=== PATIENT | female | born 1965 | race Two or more races ===

== ENCOUNTER 2020-05-15 08:42 | Outpatient (REF) | payer OTHER, SELFPAY | END 2020-05-15 08:43 | disposition home or self-care (01) | LOC: HO.LAB 08:42 | PROVIDERS: Visit Provider Internal Medicine | DX: Z20.828 Contact with and (suspected) exposure to other viral communicable diseases (principal) | CPT/HCPCS: C9803; U0003 ==

== ENCOUNTER 2020-08-11 11:56 | Outpatient (REF) | payer OTHER, SELFPAY ==
--- NOTE | ~2020-08-11 | MM_ITS ---
EXAMINATION: MM SCREENING DIGITAL BREAST TOMOSYNTHESIS, BILATERAL CLINICAL INFORMATION: Screening. Asymptomatic. The lifetime risk of breast cancer based on the Tyrer-Cuzick Model is 6%. COMPARISON: Mammography: 05/28/2019, 05/18/2018 TECHNIQUE: Digital breast tomosynthesis is performed in both the craniocaudal and mediolateral oblique views along with computer-aided detection (CAD). Synthesized 2D images are generated from the tomosynthesis. FINDINGS: There are scattered areas of fibroglandular density (ACR BI-RADS breast composition Category b). There are no significant masses, abnormal calcifications, or other abnormalities. The axilla and skin contours are unremarkable. MM/MM tomosynthesis screening BI IMPRESSION: No mammographic evidence of malignancy. ASSESSMENT: BI-RADS 1: Negative RECOMMENDATION: Routine annual mammography screening. This patient's information was entered into a reminder system with a target due date for their next mammogram.
== END 2020-08-11 11:57 | disposition home or self-care (01) ==
LOC: HO.MAMMO 11:56
PROVIDERS: PCP Family Medicine; Visit Provider Family Medicine
DX: Z12.31 Encounter for screening mammogram for malignant neoplasm of breast (principal)
CPT/HCPCS: 77063; 77067

== ENCOUNTER → 2020-08-16 08:57 | Outpatient (BNVA) | payer OTHER, SELFPAY | PROVIDERS: PCP Family Medicine; Visit Provider Advanced Practice Midwife ==

== ENCOUNTER 2020-10-11 07:15 | Outpatient (REF) | payer OTHER, SELFPAY ==
--- NOTE | ~2020-10-11 | XR_ITS ---
EXAMINATION: XR KNEE, LEFT CLINICAL INFORMATION: Left knee pain. COMPARISON: None TECHNIQUE: Four views of the left knee. FINDINGS: There is mild medial tibiofemoral compartment joint space narrowing. Small medial tibiofemoral compartment and patellofemoral compartment marginal osteophytes. Knee is approximated. No fracture or malalignment. No joint effusion. No lytic or blastic osseous lesion. XR/XR knee LT 4V IMPRESSION: Left knee: Mild arthrosis demonstrated moderate medial tibiofemoral compartment joint space narrowing and small medial tibiofemoral compartment and patellofemoral compartment compartment marginal osteophytes.
== END 2020-10-11 07:16 | disposition home or self-care (01) ==
LOC: HO.XRAY 07:15
PROVIDERS: PCP Family Medicine; Visit Provider Family Medicine
DX: M25.562 Pain in left knee (principal)
CPT/HCPCS: 73564

== ENCOUNTER 2020-11-17 08:27 | Outpatient (REF) | payer OTHER, SELFPAY ==
[2020-11-17 09:32] LABS: Glucose Urine UA NEG (NEG); Leukocyte Esterase Urine NEG (NEG); Nitrite Urine NEG (NEG); Specific Gravity - Urine >= 1.030 (1.005-1.025); Urine Blood NEG (NEG); Urine Ketones NEG (NEG); Urine Protein NEG (NEG-TRACE)
[2020-11-17 09:33] LABS: Appearance Urine HAZY; Color Urine YELLOW
[2020-11-17 09:47] LABS: Hematocrit 40.7 % (37-47); Hemoglobin 13.6 g/dl (12.0-16.0); Mean Corpuscular HGB Conc 33.4 g/dl (31.0-35.0); Mean Corpuscular Hemoglobin 29.3 pg (27.0-33.0); Mean Corpuscular Volume 87.7 fL (80-98); Mean Platelet Volume 10.2 fL (9.4-12.3); Platelet Count 270 X10*3/uL (160-400); Red Blood Count 4.64 X10*6/uL (4.20-5.50); White Blood Count 4.2 X10*3/uL (4.8-10.8)
[2020-11-17 10:02] LABS: Alanine Aminotransferase 25 U/L (0-31); Albumin Level 4.3 g/dL (3.5-5.0); Alkaline Phosphatase 153 U/L (39-117); Amylase 42 U/L (28-100); Anion Gap 12 (12-20); Aspartate Amino Transferase 23 U/L (5-31); Bilirubin Total 0.8 mg/dL (0.0-1.0); Blood Urea Nitrogen 13 mg/dL (9-16); Calcium 9.4 mg/dL (8.4-10.2); Carbon Dioxide 25 mmol/L (22-29); Chloride 106 mmol/L (96-108); Estimated Glomerular Filt Rate > 60; Glucose Fasting 107 mg/dL (60-99); Lipase 10 U/L (8-78); Potassium 4.4 mmol/L (3.3-5.1); Sodium 139 mmol/L (135-145); Total Protein 7.1 g/dL (6.5-8.0)
== END 2020-11-17 08:28 | disposition home or self-care (01) ==
LOC: HO.LAB 08:27
PROVIDERS: PCP Family Medicine; Visit Provider Nurse Practitioner Family
DX: R10.9 Unspecified abdominal pain (principal)
CPT/HCPCS: 36415; 80053; 81003; 82150; 83690; 85027

== ENCOUNTER → 2021-08-09 08:48 | Outpatient (BNVA) | payer OTHER, SELFPAY | PROVIDERS: PCP Family Medicine; Referring Provider Family Medicine; Visit Provider Nurse Practitioner ==

== ENCOUNTER 2021-08-23 08:39 | Outpatient (REF) | payer OTHER, SELFPAY ==
--- NOTE | ~2021-08-23 | MM_ITS ---
EXAMINATION: MM SCREENING DIGITAL BREAST TOMOSYNTHESIS, BILATERAL CLINICAL INFORMATION: Screening. Asymptomatic. The lifetime risk of breast cancer based on the Tyrer-Cuzick Model is 6%. COMPARISON: Mammography: 08/11/2020, 05/28/2019, 05/18/2018 TECHNIQUE: Digital breast tomosynthesis is performed in both the craniocaudal and mediolateral oblique views along with computer-aided detection (CAD). Synthesized 2D images are generated from the tomosynthesis. FINDINGS: There are scattered areas of fibroglandular density (ACR BI-RADS breast composition Category b). There are no significant masses, abnormal calcifications, or other abnormalities. Parenchymal pattern is similar to prior studies. There are no significant changes. MM/MM tomosynthesis screening BI IMPRESSION: No mammographic evidence of malignancy. ASSESSMENT: BI-RADS 1: Negative RECOMMENDATION: Routine annual mammography screening. This patient's information was entered into a reminder system with a target due date for their next mammogram.
== END 2021-08-23 08:40 | disposition home or self-care (01) ==
LOC: HO.MAMMO 08:39
PROVIDERS: PCP Family Medicine; Visit Provider Family Medicine
DX: Z12.31 Encounter for screening mammogram for malignant neoplasm of breast (principal)
CPT/HCPCS: 77063; 77067

== ENCOUNTER 2021-09-28 13:13 | Outpatient (REF) | payer OTHER, SELFPAY ==
[2021-09-29 11:14] LABS: BV Int Neg Control Negative (Negative); BV Int Pos Control Positive (Positive)
== END 2021-09-28 13:14 | disposition home or self-care (01) ==
LOC: HO.LAB 13:13
PROVIDERS: PCP Family Medicine; Visit Provider Advanced Practice Midwife
DX: Z01.411 Encounter for gynecological examination (general) (routine) with abnormal findings (principal); N89.8 Other specified noninflammatory disorders of vagina
CPT/HCPCS: 87480; 87510; 87660

== ENCOUNTER 2021-11-21 06:59 | Day surgery (SDC) | payer OTHER, SELFPAY ==
--- NOTE | 2021-11-20 10:16 | P.CONAN_ITS ---
Documented by User: Damari Montaño NP 11/20/21 10:16 HPI - Anesthesia Eval Consult details Narrative: 56yo F for Colonoscopy PMFSH Active Problems Active Problems: All Active Problems (Updated 11/15/21 @ 11:50 by Leslie Holcomb, SARAY) Back pain (Acute) Neck pain (Acute) Muscle strain (Acute) Elevated fasting blood sugar (Acute) Knee pain, left (Acute) Otitis media (Acute) Cough (Acute) Acute right flank pain (Acute) Right-sided back pain (Acute) Asthma (Acute) Tubular adenoma of colon (Acute) Essential hypertension (Acute) Pre-diabetes (Acute) Past Medical History Medical History Bunion Essential hypertension Pre-diabetes Surgical History Surgical History History of colonoscopy with polypectomy Hx of section Hx of tonsillectomy Social History Social History Alcohol intake: never Patient Tobacco Use Status: Never used Tobacco Use of substances other than those prescribed or required for medical reasons: No Are you DNR?: No Advance Directives: No Advance Directives Information Provided: Yes Patient : No (tubal ligation) Meds Allergies Allergy/AdvReac Type Severity Reaction Status Date / Time No Known Allergies Allergy Verified 11/15/21 11:50 Exam Exam Date and Time: November 20, 2021 1016 Assessment and Plan Assessment Anesthesia Assessment: Chart Reviewed Documented by User: Shamika Arias MD 11/21/21 09:00 [facility] Past Medical History Medical History Bunion Essential hypertension Pre-diabetes Family History Family history of problems with anesthesia: No Surgical History Surgical History History of colonoscopy with polypectomy Hx of section Hx of tonsillectomy History of Problems with Anesthesia: No Social History Social History Alcohol intake: never Patient Tobacco Use Status: Never used Tobacco Use of substances other than those prescribed or required for medical reasons: No Are you DNR?: No Advance Directives: No Advance Directives Information Provided: Yes Patient : No (tubal ligation) Meds Allergies Allergy/AdvReac Type Severity Reaction Status Date / Time No Known Allergies Allergy Verified 11/15/21 11:50 Exam Height,Weight and Vital Signs: Height 5 ft 1 in Weight 65.317 kg Vital Signs Temp Pulse Resp BP Pulse Ox 11/21/21 07:27 98.3 F 62 16 126/65 98 Airway Mallampati Class: II TM Dist: >3cm Neck ROM: Full Loose/Missing/Broken Teeth: No (Wilbur intact) Heart: RRR Lungs: CTAB Assessment and Plan Assessment Anesthesia Assessment: Anesthesia Plan Discussed Final Anesthetic Review Family History of Problems with Anesthesia: No History of Problems with Anesthesia: No NPO: Yes ASA Class: II Final Preanesthetic Review: No Changes in Pt Med Stat, Meds/Allgs Chart Reviewed, Consent Obtained/Reviewed and Anes Risks/Benef Reviewed Patient Risk: Low Procedure Risk: Low Assessment/Block/Sedation in SS: Assess/Block/Sedation- Anesthetic Plan Anesthetic Plan: MAC: Disposition: Standard PACU
[2021-11-21 07:25] VITALS: BMI 27.1
[2021-11-21 07:27] VITALS: BP 126/65; PULSE 62; RESP 16; TEMP 36.8; O2SAT 98
[2021-11-21] MEDS: Lactated Ringers 1,000 ML 100 ML IVCONT (07:32)
--- NOTE | 2021-11-21 08:27 | P.HPSUR_ITS ---
Pre-Procedural Eval Section A Date of Service: 11/21/21 Section B Chief Complaint: benign neoplasm of colon Relevant Family History (Specify if Yes): No Relevant Social History: None Present Medications: see Short Stay Collaborative assessment Medical History: Significant History (Bunion Essential hypertension Pre- diabetes) History of Previous Operations: Relevant previous surgery/procedure and date(s) (, colonoscopy) Allergies: Allergies Allergy/AdvReac Type Severity Reaction Status Date / Time No Known Allergies Allergy Verified 11/15/21 11:50 Review of Systems Sugical H&P ROS: Negative: Constitution, Cardiovascular, Respiratory, Neurologic al, Psychiatric, Hem-Onc, Allergic/Immunologic, Gastrointestinal, Genitourinary, Musculoskeletal, Integumentary, Endocrine and Eyes/Ears/Nose/Throat Exam Surgical H&P Exam: Normal: HEENT, Normal: Heart, Normal: Lungs, Normal: Extremities, Normal: Abdomen, Normal: Skin and Normal: Neurological Plan Diagnosis/Plan: Unchanged I have reviewed the history and physical and performed a pertinent physical examination on my patient. No changes have occurred unless specified.
--- NOTE | 2021-11-21 08:28 | P.OP_ITS ---
Operative Note Operative Note Date of Service: 11/21/21 Narrative: Operative Information Procedure Description: Colonoscopy Indication: colon screening, hx of polyps Anesthesia: MAC COLONOSCOPY Instrument: Olympus variable stiffness pediatric scope 190L Colonoscopy Monitoring: Vital signs and clinical assessment, continuous EKG monitoring, Pulse oximetry, Carbon Dioxide monitoring and blood pressure monitoring were done throughout the procedure. Colon withdrawal time was 11 minutes. Procedure: The patient was placed in the left lateral decubitis position and pre-procedure medications were administered. After a digital rectal examination of the ano-rectum, the video colonoscope was inserted into the rectum and advanced through the colon to the cecum/TI. The colonoscope was slowly withdrawn in a retrograde panoramic fashion and the colon mucosa was carefully examined including a retroflexed view of the rectum. Findings and interventions are described below. Procedure Difficulty: easy Findings: Terminal Ileum-normal Cecum: 10 mm sessile polyp removed with cold snare Ascending Colon: 6-8 mm sessile polyp removed with cold snare Transverse Colon -normal Descending Colon:normal Sigmoid Colon: 5-7 mm sessile polyp removed with cold forceps Rectum: Retroflexion with small internal hemorrhoids, grade I Anorectum - normal Colon preparation: [place] Bowel Preparation Scale Right colon; 3 Transverse colon: 3 Left colon; 3 (0 = Unprepared colon segment with mucosa not seen due to solid stool that cannot be cleared. 1 = Portion of mucosa of the colon segment seen, but other areas of the colon segment not well seen due to staining, residual stool and/or opaque liquid. 2 = Minor amount of residual staining, small fragments of stool and/or opaque liquid, but mucosa of colon segment seen well. 3 = Entire mucosa of colon segment seen well with no residual staining, small fragments of stool or opaque liquid) Impression and Post Procedure Diagnosis: polyps internal hemorrhoids Plan: High fiber diet leaflet Avoid straining at stool, epsom salts and sitz bath, anusol supps or cream Repeat Colonoscopy in 4-5 years due to polyps or earlier if clinically indicated Above findings were reviewed with the patient and relevant handouts were provided if indicated.
--- NOTE | 2021-11-21 08:28 | PM.OP ---
Brief Operative Note Date of Service: 11/21/21 Pre-op diagnosis: colon screening Post-op diagnosis: same Procedure: see op note Surgeon: Jovon Tejeda MD Anesthesia: MAC Was an Senior Radiation Protection Technician used for this Procedure?: No Estimated blood loss (mL): 0 Condition: stable Disposition: PACU
[2021-11-21 09:17] VITALS: BP 105/56; PULSE 63; RESP 16; TEMP 36.7; O2SAT 97
[2021-11-21 09:32] VITALS: BP 121/64; PULSE 49; RESP 15; TEMP 36.6; O2SAT 97
[2021-11-21 09:46] VITALS: BP 128/67; PULSE 52; RESP 17; TEMP 36.6; O2SAT 98
[2021-11-21 10:02] VITALS: BP 123/61; PULSE 56; RESP 17; TEMP 36.9; O2SAT 98
== END 2021-11-21 10:00 | disposition home or self-care (01) ==
PROVIDERS: PCP Family Medicine; Visit Provider Internal Medicine Gastroenterology
PROC: 0DJD8ZZ Inspection of Lower Intestinal Tract, Via Natural or Artificial Opening Endoscopic (ICD-10-PCS; CPT 45378; principal; 2021-11-21 08:30)
DX: Z12.11 Encounter for screening for malignant neoplasm of colon (principal); Z86.010 Personal history of colon polyps; D12.0 Benign neoplasm of cecum; D12.2 Benign neoplasm of ascending colon; D12.5 Benign neoplasm of sigmoid colon; K64.0 First degree hemorrhoids; J45.909 Unspecified asthma, uncomplicated; I10 Essential (primary) hypertension; R73.01 Impaired fasting glucose; Z79.899 Other long term (current) drug therapy
CPT/HCPCS: 45385; 45380; 88305

== ENCOUNTER → 2021-12-04 08:17 | Outpatient (BNVA) | payer OTHER, SELFPAY | PROVIDERS: PCP Family Medicine; Visit Provider Nurse Practitioner | DX: K59.04 Chronic idiopathic constipation (principal); D12.0 Benign neoplasm of cecum; D12.2 Benign neoplasm of ascending colon; Z98.890 Other specified postprocedural states | CPT/HCPCS: 99212 ==

== ENCOUNTER → 2022-01-15 08:54 | Outpatient (BNVA) | payer OTHER, SELFPAY | PROVIDERS: PCP Family Medicine; Referring Provider Family Medicine; Visit Provider Nurse Practitioner | DX: K59.04 Chronic idiopathic constipation (principal) | CPT/HCPCS: 99212 ==

== ENCOUNTER 2022-01-24 06:52 | Outpatient (REF) | payer OTHER, SELFPAY ==
[2022-01-24 07:53] LABS: Alanine Aminotransferase 19 U/L (0-31); Albumin Level 4.4 g/dL (3.5-5.0); Alkaline Phosphatase 134 U/L (39-117); Anion Gap 14 (12-20); Aspartate Amino Transferase 23 U/L (5-31); Bilirubin Total 0.8 mg/dL (0.0-1.0); Blood Urea Nitrogen 12 mg/dL (9-16); Calcium 9.3 mg/dL (8.4-10.2); Carbon Dioxide 25 mmol/L (22-29); Chloride 105 mmol/L (96-108); Cholesterol 214 mg/dL; Estimated Glomerular Filt Rate > 60; Glucose Fasting 118 mg/dL (60-99); HDL Cholesterol 35 mg/dL; LDL Cholesterol Calculated 150 mg/dl; Potassium 4.6 mmol/L (3.3-5.1); Sodium 139 mmol/L (135-145); Total Protein 7.4 g/dL (6.5-8.0); Triglycerides 148 mg/dL
[2022-01-24 08:17] LABS: TSH reflex Free T4 2.23 uIU/mL (0.32-4.0)
[2022-01-24 08:54] LABS: Creatinine Urine 81.57 mg/dL; Microalbum/Creatinine Ratio Ur 7.3 ug/mg cr
== END 2022-01-24 06:53 | disposition home or self-care (01) ==
LOC: HO.LAB 06:52
PROVIDERS: PCP Family Medicine; Visit Provider Family Medicine
DX: Z00.00 Encounter for general adult medical examination without abnormal findings (principal); I10 Essential (primary) hypertension
CPT/HCPCS: 36415; 80053; 80061; 82043; 84443

== ENCOUNTER → 2022-02-22 09:16 | Outpatient (REF) | payer OTHER, SELFPAY ==
--- NOTE | 2022-02-22 09:19 | CA_ITS ---
Transthoracic Echocardiogram Patient (Last, First, Middle): Keli Darden, Gender: Female Date of : 1965 Age: 56 Procedure Date: 02/22/2022 Procedure Type: Transthoracic Echocardiogram Location: OP Height: 154.94 cm Weight: 65.77 kg BSA: 1.65 m2 Heart Rate: 61 bpm BP: 140 / 78 mmHg Bulk Mail Clerk: SB Referring MD: Bennett Rogers MD Conference Concierge: Fidel Baltazar MD Symptoms: R01.1 - Cardiac murmur, unspecified Study Quality: Adequate ECG Rhythm: Sinus Conclusions: - 1. Normal LV systolic function 2. Early mild aortic stenosis with mean gradient of 10 mmHg 3. No gross pericardial effusion Findings Left Ventricle Normal left ventricular size, thickness, and systolic function. The visually estimated ejection fraction is between 60-65%. Spectral Doppler is indicative of a normal filling pattern. Peak GLS is -16.3%, which is reduced. Right Ventricle Normal right ventricular cavity size and systolic function. Atria Both atria are normal in size. Interatrial shunt cannot be excluded. Aortic Valve The aortic valve was not well visualized. There is mild calcification of the aortic valve. There is mild aortic valve stenosis. The peak aortic velocity is 2.18 m/s with a calculated peak gradient of 19 mmHg. The mean gradient is 10 mmHg. The aortic valve area is 1.60 cm2. There is no aortic valve regurgitation. Mitral Valve Likely normal mitral valve structure and function. There is trace mitral valve regurgitation. There is no mitral valve stenosis. Pulmonic Valve The pulmonic valve was not well visualized. Tricuspid Valve Likely normal tricuspid valve structure and function. Tricuspid regurgitation envelope is inadequate for calculation of right ventricular systolic pressure. Normal right atrial pressure. Great Vessels All visible segments of the aorta are normal in size. The pulmonary artery was not well visualized. Venous The inferior vena cava is normal in size and collapses greater than 50% with inspiration. Pericardium/Pleural There is no evidence of pericardial effusion. Prior Study Comparison No prior study available for comparison. Measurements M-Mode Liner Measurements Normals - Women/Men IVSd: 0.60 0.6-0.9/0.6-1.0 cm LVIDd: 4.70 3.9-5.3/4.2-5.9 cm LVIDs: 2.52 2.0-3.8 cm LVPWd: 0.80 0.6-0.9/0.6-1.0 cm 2D Linear Measurements RVIDd: 3.00 IVSd: 0.68 0.6-0.9/0.6-1.0 cm LVIDd: 4.74 3.9-5.3/4.2-5.9 cm LVIDd Index: 2.87 2.4-3.2/2.2-3.1 cm/m2 LVIDs: 2.52 2.0-3.6 cm LVPWd: 0.86 0.7-1.1 cm LA Diam: 3.90 2.7-3.8/3.0-4.0 cm LAIDs Index: 2.36 1.5-2.3 cm/m2 LV Mass: 146.82 67-162/88-224 g LV Mass Index: 88.98 43-95/49-115 g/m2 LVOT Diam: 2.00 3.0+(-)1.3 cm 2D Volumes RA ESV A/L: 21.00 19-21 ML/M2 2D Systolic Function EF 4C: 68.00 >55% EF 2C: 61.40 >55% EF BiP: 65.10 >55% Mitral Valve MV Pk E: 0.78 MV PK A: 0.80 MV Decel Time: 183.00 E/A: 1.00 E'Lateral: 6.74 E'Medial: 5.22 E/E' Med: 15.00 E/E' Lat: 11.60 PHT: 53.00 MVA PHT: 4.15 Decel Alfalfa: 4.29 Aortic Valve AoV Pk Evens: 2.18 AoV Mn Evens: 1.51 AoV VTI: 47.80 AoV Pk Grad: 19.00 Aov Mn Grad: 10.00 VARSHA Cont.VTI: 1.60 LVOT LVOT Pk Evens: 1.11 LVOT Mn Evens: 0.83 LVOT VTI: 24.30 LVOT Pk Grad: 5.00 LVOT Mn Grad: 3.00 LVOT Diam: 2.00 LVOT Area: 3.14 Diastolic Function MV Pk E: 0.78 MV Pk A: 0.80 E/A: 1.00 E'Medial: 5.22 E/E' Med: 15.00 E' Laterial: 6.74 E/E' Lat: 11.60 Right Ventricle TAPSE (mm): 25.80 TVS' Evens: 8.90 Great Vessels Aorta Sinus of Valsalva: 2.80 2.0-3.5 cm Ao Asc: 3.30 2.1-3.4 cm Pulmonary Veins Pulm Vein Pk S Evens: 0.34 Pulm Vein Pk D Evens: 0.43 Pulm Vein S/D 0.80 Pulmonary Valve PV Pk Evens: 0.82 Peak PV Grad: 3.00 Updated in Other Vendor System with Status of Final Fidel Baltazar MD electronically signed on 02/24/2022 1:56:54 PM with status of Final
== END ==
LOC: HO.CARD 09:16
PROVIDERS: PCP Family Medicine; Visit Provider Family Medicine
DX: R01.1 Cardiac murmur, unspecified (principal)
CPT/HCPCS: 93306; 93356

== ENCOUNTER 2022-04-08 13:15 | Outpatient (REF) | payer OTHER, SELFPAY ==
--- NOTE | ~2022-04-08 | MM_ITS ---
EXAMINATION: MM DIAGNOSTIC DIGITAL BREAST TOMOSYNTHESIS, LEFT US DIAGNOSTIC ULTRASOUND BREAST, LEFT CLINICAL INFORMATION: Pain and quarter-size mass for 2 weeks, 2:00 anterior left breast, symptoms decreased. The lifetime risk of breast cancer based on the Tyrer-Cuzick Model is 5%. COMPARISON: Mammography: 08/23/2021, 08/11/2020, 05/28/2019 TECHNIQUE: Digital breast tomosynthesis is performed in both the craniocaudal and mediolateral oblique views along with computer-aided detection (CAD). Synthesized 2D images are generated from the tomosynthesis. Ultrasound left breast is targeted to the area of clinical concern anterior upper outer left breast. Grayscale imaging and color Doppler are performed without and with harmonics. FINDINGS: There are scattered areas of fibroglandular density (ACR BI-RADS breast composition Category b). Parenchymal pattern is similar to prior studies. There is no developing density or interval mass or architectural abnormality. No skin thickening or coarsening of the Terrence's ligaments. No abnormal calcifications. The axilla is unremarkable. No significant change. Ultrasound demonstrates incidental cyst near area of clinical concern upper anterior breast measuring under 5 mm. There is increased through-transmission of sound and no associated color flow. Otherwise, there is no cystic or solid mass, focal duct ectasia, or architectural abnormality. No skin thickening or edema tracking in soft tissue planes. Results are discussed with the patient at time of visit. MM/MM tomosynthesis diagnostic LT IMPRESSION: -No mammographic evidence of malignancy. No significant changes from prior studies. -Incidental cyst upper anterior breast, under 5 mm. Otherwise, unremarkable ultrasound. ASSESSMENT: BI-RADS 2: Benign RECOMMENDATION: 1. Patient should be managed based on the clinical impression. If there remains a clinical concern, further evaluation may be considered with surgical consult. Decision to proceed with biopsy should be based on clinical grounds and degree of clinical concern. 2. Otherwise, routine annual screening mammography. This patient's information was entered into a reminder system with a target due date for their next mammogram.
== END 2022-04-08 13:16 | disposition home or self-care (01) ==
LOC: HO.MAMMO 13:15
PROVIDERS: PCP Hospitalist; Visit Provider Hospitalist
DX: N63.25 Unspecified lump in the left breast, overlapping quadrants (principal)
CPT/HCPCS: 76642; 77061; 77065

== ENCOUNTER → 2022-04-17 08:18 | Outpatient (BNVA) | payer OTHER, SELFPAY | PROVIDERS: PCP Hospitalist; Visit Provider Nurse Practitioner | DX: K59.04 Chronic idiopathic constipation (principal) | CPT/HCPCS: 99212 ==

== ENCOUNTER → 2022-05-01 13:08 | Outpatient (BNVA) | payer OTHER, SELFPAY | PROVIDERS: PCP Family Medicine; Referring Provider Family Medicine; Visit Provider Internal Medicine | DX: I35.0 Nonrheumatic aortic (valve) stenosis (principal); I10 Essential (primary) hypertension | CPT/HCPCS: 93005; 99202 ==

== ENCOUNTER → 2022-05-15 08:19 | Outpatient (BNVA) | payer OTHER, SELFPAY | PROVIDERS: PCP Family Medicine; Visit Provider Nurse Practitioner | DX: K59.04 Chronic idiopathic constipation (principal); K21.9 Gastro-esophageal reflux disease without esophagitis | CPT/HCPCS: 99212 ==

== ENCOUNTER → 2022-09-25 08:15 | Outpatient (BNVA) | payer OTHER, SELFPAY | PROVIDERS: PCP Family Medicine; Visit Provider Nurse Practitioner | DX: K59.04 Chronic idiopathic constipation (principal); K21.9 Gastro-esophageal reflux disease without esophagitis | CPT/HCPCS: 99212 ==

== ENCOUNTER 2022-09-26 07:59 | Outpatient (REF) | payer OTHER, SELFPAY ==
--- NOTE | ~2022-09-26 | MM_ITS ---
EXAMINATION: MM SCREENING DIGITAL BREAST TOMOSYNTHESIS, BILATERAL CLINICAL INFORMATION: Screening. Asymptomatic. The lifetime risk of breast cancer based on the Tyrer-Cuzick Model is 5.1%. COMPARISON: Mammography: April 08, 2022 and studies dating back to April 17, 2016 TECHNIQUE: Digital breast tomosynthesis is performed in both the craniocaudal and mediolateral oblique views along with computer-aided detection (CAD). Synthesized 2D images are generated from the tomosynthesis. FINDINGS: There are scattered areas of fibroglandular density (ACR BI-RADS breast composition Category b). There are no significant masses, abnormal calcifications, or other abnormalities. MM/MM tomosynthesis screening BI IMPRESSION: No significant changes ASSESSMENT: BI-RADS 1: Negative RECOMMENDATION: Routine annual mammography screening. This patient's information was entered into a reminder system with a target due date for their next mammogram.
== END 2022-09-26 08:00 | disposition home or self-care (01) ==
LOC: HO.MAMMO 07:59
PROVIDERS: PCP Family Medicine; Visit Provider Family Medicine
DX: Z12.31 Encounter for screening mammogram for malignant neoplasm of breast (principal)
CPT/HCPCS: 77063; 77067

== ENCOUNTER → 2022-10-02 12:49 | Outpatient (BNVA) | payer OTHER, SELFPAY | PROVIDERS: PCP Family Medicine; Visit Provider Advanced Practice Midwife ==

== ENCOUNTER 2022-12-31 08:54 | Outpatient (AMB) | payer OTHER, SELFPAY ==
--- NOTE | 2022-12-31 08:59 | MHC.PC.OV ---
Vital Signs 12/31/22 09:00 Height 5 ft 1 in Weight 150 lb 8 oz BMI 28.4 BP 124/72 Blood Pressure Location Lt brachial Position Sitting Pulse 62 Pulse Source Pulse Oximeter Pulse Oximetry (%) 97 Oxygen Delivery Method Room Air Intake Visit Reasons: Annual PE Intake Note: Patient is here for her physical today. Allergies No Known Allergies Allergy (Verified 12/31/22 09:03) Medication List - Last Reconciled 12/31/22 by Bennett Rogers MD famotidine (Pepcid) 40 mg PO BEDTIME ibuprofen 600 mg PO Q8H PRN 14 days lisinopril 20 mg PO DAILY 90 days sennosides (senna) 17.2 mg (2 x 8.6 mg) PO BID 30 days Tobacco use date assessed: 12/31/22 Dental Screening Did you have a dental visit in the last 12 months?: Yes Did you have a dental problem in the last 6 months where you did not have access to dental care?: No Was dental information given to patient?: No HPI Annual PE HPI Details 57 y/o female presents for a CPE with f/u labs and health maintenance. No recent labs to review. Blood pressure today 124/72. She is on lisinopril 20mg daily. She reports a cough in the morning. She has been using famotidine for her GERD. Pt reports back pain. Pt states she is up to date on her health maintenance. HPI Comments History of Present Illness Details Documentation assistance for Bennett Rogers MD, was provided by Silvano Hyatt, [employer] on 12/31/2022 9:41 AM EST. [place], Dr. Rogers, have read, observed, and verified documentation. [facility] Medical History Bunion Essential hypertension Pre-diabetes Surgical History History of colonoscopy with polypectomy Hx of section Hx of tonsillectomy Family History Mother Diabetes Brother Diabetes Sister Diabetes Social History Housing: Apartment Alcohol intake: never Patient Tobacco Use Status: Never used Tobacco e-Cigarette/Vaping Use: Never Used Second Hand Smoke Exposure: No service: No Current occupational status: employed Current occupational exposures/hazards: No Sexual orientation: Straight/Heterosexual Gender identity: Female Cognitive needs: No Hearing needs: No Vision needs: No Female Reproductive History Menstrual Age of Menarche: 12 Questionnaire PHQ-9 Over the last 2 weeks, how often have you been bothered by any of the following problems? 1. Little interest or pleasure in doing things: not at all 2. Feeling down, depressed, or hopeless: not at all 3. Trouble falling or staying asleep, or sleeping too much: several days 4. Feeling tired or having little energy: not at all 5. Poor appetite or overeating: not at all 6. Feeling bad about yourself - or that you are a failure or have let yourself or your family down: not at all 7. Trouble concentrating on things, such as reading the newspaper or watching television: not at all 8. Moving or speaking so slowly that other people could have noticed. Or the opposite - being so fidgety or restless that you have been moving around a lot more than usual: not at all 9. Thoughts that you would be better off or of hurting yourself in some way: not at all Total score: 1 Source: Developed by Drs. Jaime Stephens, Halle Guevara, Hola Harmon and colleagues, with an educational socorro from [employer]. Thrive Questionnaire I am a: Patient What is your living situation today?: I have a steady place to live Within the past 12 months, did the food you bought not last and you didn't have the money to get more?: Never true Within the past 12 months, did you worry whether your food would run out before you got money to buy more?: Never true Do you have trouble paying for medicines?: No Do you have trouble getting transportation to medical appointments?: No Do you have trouble paying your heating and electricity bill?: No Do you have trouble taking care of your child, family member or friend?: No Do you have trouble with day-to-day activities such as bathing, preparing meals, shopping, managing finances, etc.?: No Are you currently unemployed and looking for a job?: No Are you interested in more education?: No AUDIT C Alcohol Use Questionnaire (AUDIT-C) 1. How often do you have a drink containing alcohol?: Never 3. How often do you have six or more drinks on one occasion?: Never Total Score: 0 GOKUL-7 AMB Questionnaire GOKUL-7 Date GOKUL - 7 assessed: 12/28/21 Feeling nervous, anxious, or on edge: 0 = Not at all Not being able to stop or control worryin = Not at all Worrying too much about different things: 0 = Not at all Trouble relaxin = Not at all Being so restless that it is hard to sit still: 1 = Several days Becoming easily annoyed or irritable: 1 = Several days Feeling afraid as if something awful might happen: 0 = Not at all Total GOKUL-7 score (0-4 normal; 5-9 mild; 10-14 moderate; 15-21 severe): 2 Source: Developed by Drs. Jaime Stephens, Halle Guevara, Hola Harmon and colleagues, with an educational socorro from [employer]. Review of Systems Const Denies chills, Denies fatigue, Denies fever(s), Denies headache(s) and Denies weakness Eyes Denies change in vision ENT Denies dizziness, Denies headache(s), Denies hearing loss, Denies nasal congestion, Denies sinus pain, Denies sinus pressure and Denies sore throat Card Denies chest pain, Denies lightheadedness, Denies dyspnea and Denies other (palpitations) Resp Reports cough, Denies dyspnea and Denies wheezing GI Denies abdominal pain, Denies melena, Denies hematochezia, Denies change in bowel habits, Denies dyspepsia and Denies nausea Denies hematuria and Denies dysuria Musc Denies abnormal gait, Reports back pain, Denies myalgias, Denies arthralgias, Denies numbness and Denies tingling Skin/Breast Denies rash, Denies unusual bruising and Denies wounds Neuro Denies abnormal gait, Denies dizziness, Denies headache(s), Denies memory loss, Denies numbness, Denies Sensory deficit (Neuro), Denies tingling and Denies weakness Psych Denies anxiety, Denies depression and Denies memory loss Endo Denies cold intolerance, Denies fatigue, Denies heat intolerance, Denies polydipsia and Denies polyuria Coy/Lymph Denies easy bleeding and Denies easy bruising Aller/Immun Denies wheezing Physical exam (Primary Care) Vital Signs: Last Vital Signs Pulse 62 12/31/22 09:00 BP 124/72 12/31/22 09:00 Pulse Ox 97 12/31/22 09:00 Oxygen Delivery Method Room Air 12/31/22 09:00 BMI result Body Mass Index 28.4 Tobacco/Smoking Status: Tobacco use Status Tobacco use date assessed 12/31/22 12/31/22 09:11 Patient Tobacco Use Status Never used Tobacco 12/31/22 09:00 e-Cigarette/Vaping Use Never Used 12/31/22 09:00 PHQ-9: PHQ-9 Score PHQ-9: Total score 1 12/31/22 09:27 Const General: no acute distress, well developed, alert and awake Nutritional Appearance: well nourished Orientation/consciousness: patient oriented x3 HENMT Head: Yes normocephalic and Yes atraumatic Ears: hearing grossly normal bilaterally and TM's normal bilaterally General nose exam: Normal external nose present and Normal nares present Mouth: Normal oral and palatal mucosa present and moist mucous membranes Teeth and gingiva: dentition normal Throat: Yes posterior oropharynx normal Eyes General: appearance normal, both eyes and all related structures Pupils: Equal, round and reactive pupils present and Pupil accommodation reflex normal EOM: EOMs intact bilaterally Neck Neck: Yes normal visual inspection, Yes no lymphadenopathy and Yes trachea midline Thyroid: Thyroid normal Carotids: no bruits Lymphatic: no lymphadenopathy noted Chest Chest palpation & inspection: normal inspection of the chest Resp Effort & Inspection: normal respiratory effort Auscultation: clear to auscultation bilaterally Cardio Rate: regular rate Rhythm: regular rhythm Heart sounds: S1 normal heart sound present, S2 normal heart sound present, no gallops, no murmurs and no rubs Bruits: no abdominal aortic bruits and no carotid bruits GI Palpation (GI): No Abdominal aortic bruit present, Soft to palpation, nontender, No hepatosplenomegaly present and No Rebound tenderness present Auscultation: normal bowel sounds General: Yes no CVA tenderness Back/Spine/Pelvis Other: Back pain around L5 region lateral to the spine Back: no CVA tenderness Cervical Spine: cervical ROM normal and No Cervical spine tenderness Thoracic/Lumbar Spine: thoraco-lumbar ROM normal, No pain with thoraco-lumbar ROM, No thoracic spinal tenderness and No lumbar spinal tenderness Skin Lesions: no lesions Rashes: no rashes Trauma: no lacerations or abrasions Wounds: no wounds Nails: normal Neuro General: patient oriented x3 Cranial nerves: Yes Equal, round and reactive pupils present Cognition (Neuro): normal cognition Gait exam (Neuro): Normal gait present Motor exam (neuro): 5/5 motor strength present throughout Sensory Exam: No Sensory deficit (Neuro) Deep tendon reflexes (DTR's): Right patellar reflex intensity grade: 2+ and Left patellar reflex intensity grade: 2+ Extrem General: Yes normal to inspection and No edema Psych Appearance: grossly normal Affect: normal affect Attitude: cooperative Thought process: Normal thought process present Assessment and Plan Assessment & Plan (1) Adult general medical examination: Code(s): Z00.00 - Encounter for general adult medical examination without abnormal findings Plan: 57-year-old female presents for complete physical exam Encouraged healthy diet with active lifestyle and plenty of exercise (2) Essential hypertension: Code(s): I10 - Essential (primary) hypertension Plan: Blood pressure is controlled. Goal is less than 140/90 Continue lisinopril (3) GERD (gastroesophageal reflux disease): Code(s): K21.9 - Gastro-esophageal reflux disease without esophagitis Plan: Continue famotidine (4) Cough: Code(s): R05 - Cough Plan: Possibly secondary to GERD so I encouraged her to use famotidine, elevate head of bed and avoid triggers Possibly allergic and recommended hep of filtration and hyper relative genic bedding covers Will also try Zyrtec (5) Back pain: Code(s): M54.9 - Dorsalgia, unspecified Plan: Low back pain which appears muscular in nature Also some bilateral hip pain which appears to be bursitis She will try NSAIDs, ice/heat and gentle exercise. If not improving, will refer for physical therapy (6) Pre-diabetes: Code(s): R73.03 - Prediabetes Plan: Check A1c (7) Asthma: Code(s): J45.909 - Unspecified asthma, uncomplicated Plan: Lungs are clear today She does note some coughing in the morning which may be allergic or secondary to GERD, as discussed above. (8) Screening for cervical cancer: Code(s): Z12.4 - Encounter for screening for malignant neoplasm of cervix Plan: Pap smear last year was normal Follow-up again in 2 years (9) Breast cancer screening by mammogram: Code(s): Z12.31 - Encounter for screening mammogram for malignant neoplasm of breast Plan: Mammogram in September was negative for malignancy and recommended annual screening (10) Screening for colon cancer: Code(s): Z12.11 - Encounter for screening for malignant neoplasm of colon Plan: Colonoscopy last year recommended 3 year follow-up so she will be due for follow-up in 2 years Orders: Orders Comprehensive Met. Panel Today Z00.00 - Encounter for general adult medical examination without abnormal findings Hemoglobin A1c Today R73.01 - Impaired fasting glucose, R73.03 - Prediabetes LDL Cholesterol Direct Today Z00.00 - Encounter for general adult medical examination without abnormal findings Lipid Panel Today Z00.00 - Encounter for general adult medical examination without abnormal findings TSH reflex Free T4 Today I10 - Essential (primary) hypertension, Z00.00 - Encounter for general adult medical examination without abnormal findings Microalbumin, Random (w Creat) Today I10 - Essential (primary) hypertension, R73.03 - Prediabetes UA and rflx microscopic Today I10 - Essential (primary) hypertension, Z00.00 - Encounter for general adult medical examination without abnormal findings Coding Level of Care Code Est Pt Level 3 (61412) Est Pt Prev Care 40-64y(86565) Diagnoses Adult general medical examination Z00.00 Essential hypertension I10 GERD (gastroesophageal reflux disease) K21.9 Cough R05 Back pain M54.9 Pre-diabetes R73.03 Asthma J45.909 Screening for cervical cancer Z12.4 Breast cancer screening by mammogram Z12.31 Screening for colon cancer Z12.11
[2022-12-31 09:00] VITALS: BP 124/72; PULSE 62; O2SAT 97; BMI 28.4
== END 2022-12-31 09:46 | disposition home or self-care (01) ==
PROVIDERS: PCP Family Medicine; Visit Provider Family Medicine
DX: Z00.00 Encounter for general adult medical examination without abnormal findings (principal); I10 Essential (primary) hypertension; K21.9 Gastro-esophageal reflux disease without esophagitis; J45.909 Unspecified asthma, uncomplicated; R05 Cough; M54.9 Dorsalgia, unspecified; R73.03 Prediabetes; Z12.31 Encounter for screening mammogram for malignant neoplasm of breast; Z12.11 Encounter for screening for malignant neoplasm of colon
CPT/HCPCS: 99396

== ENCOUNTER 2022-12-31 09:46 | Outpatient (REF) | payer OTHER, SELFPAY ==
[2022-12-31 11:38] LABS: Appearance Urine Cloudy; Color Urine Yellow; Glucose Urine UA Negative (Negative); Leukocyte Esterase Urine Negative (Negative); Nitrite Urine Negative (Negative); Specific Gravity - Urine 1.015 (1.005-1.025); Urine Blood Negative (Negative); Urine Ketones Negative (Negative); Urine Protein Negative (Neg-Trace)
[2022-12-31 11:40] LABS: Estimated Average Glucose 123 mg/dL; Hemoglobin A1c % 5.9 %
[2022-12-31 12:08] LABS: Alanine Aminotransferase 21 U/L (0-31); Albumin Level 4.4 g/dL (3.5-5.0); Alkaline Phosphatase 135 U/L (39-117); Anion Gap 12 (12-20); Aspartate Amino Transferase 24 U/L (5-31); Blood Urea Nitrogen 12 mg/dL (9-16); Calcium 10.3 mg/dL (8.4-10.2); Carbon Dioxide 25 mmol/L (22-29); Chloride 105 mmol/L (96-108); Cholesterol 217 mg/dL; Estimated Glomerular Filt Rate > 60; Glucose Random 105 mg/dL (60-115); HDL Cholesterol 41 mg/dL; LDL Cholesterol Calculated 140 mg/dl; Potassium 4.3 mmol/L (3.3-5.1); Sodium 138 mmol/L (135-145); TSH reflex Free T4 2.46 uIU/mL (0.32-4.0); Total Protein 7.8 g/dL (6.5-8.0); Triglycerides 183 mg/dL
[2022-12-31 13:05] LABS: Creatinine Urine 68.59 mg/dL; Microalbum/Creatinine Ratio Ur 13.1 ug/mg cr
[2023-01-02 11:29] LABS: LDL Cholesterol Direct 150 mg/dL (<100)
== END 2022-12-31 09:47 | disposition home or self-care (01) ==
LOC: HO.WFDLDS 09:46
PROVIDERS: Visit Provider Family Medicine
DX: Z00.00 Encounter for general adult medical examination without abnormal findings (principal); I10 Essential (primary) hypertension; R73.01 Impaired fasting glucose; R73.03 Prediabetes
CPT/HCPCS: 36415; 80053; 80061; 81003; 82043; 83036; 83721; 84443

== ENCOUNTER 2023-01-22 14:47 | Outpatient (AMB) | payer OTHER, SELFPAY ==
--- NOTE | 2023-01-22 14:38 | A.OFFPC_ITS ---
Intake Visit Reasons: f/u CPE-labs Intake Note: Patient is calling to follow up on her labs from her physical. Allergies No Known Allergies Allergy (Verified 01/22/23 14:38) Tobacco use date assessed: 01/22/23 Dental Screening Dental Screen Date: 01/22/23 Did you have a dental visit in the last 12 months?: Yes Did you have a dental problem in the last 6 months where you did not have access to dental care?: No Was dental information given to patient?: No HPI f/u CPE-labs HPI Details 57 y/o female presents to f/u CPE-labs via telemedicine. Labs were drawn 12/31/22. Reviewed labs with pt. Triglycerides 183. TC 217. LDL 150. HDL 41. Calcium mildly elevated. A1c 5.9% - in the pre-diabetes range. PFSH Medical History Bunion Essential hypertension Pre-diabetes Surgical History History of colonoscopy with polypectomy Hx of section Hx of tonsillectomy Family History Mother Diabetes Brother Diabetes Sister Diabetes Social History Housing: Apartment Alcohol intake: never Patient Tobacco Use Status: Never used Tobacco e-Cigarette/Vaping Use: Never Used Second Hand Smoke Exposure: No service: No Current occupational status: employed Current occupational exposures/hazards: No Sexual orientation: Straight/Heterosexual Gender identity: Female Cognitive needs: No Hearing needs: No Vision needs: No Female Reproductive History Menstrual Age of Menarche: 12 Questionnaire GOKUL-7 AMB Questionnaire GOKUL-7 Date GOKUL - 7 assessed: 12/28/21 Source: Developed by Drs. Jaime Stephens, Halle Guevara, Hola Harmon and colleagues, with an educational socorro from [employer]. Physical exam (Primary Care) Tobacco/Smoking Status: Tobacco use Status Tobacco use date assessed 01/22/23 01/22/23 14:44 Patient Tobacco Use Status Never used Tobacco 01/22/23 14:44 e-Cigarette/Vaping Use Never Used 01/22/23 14:44 Telehealth Telehealth Location of provider rendering services: practice address Location of patient: address on file Patient Identification confirmed using: Name, : Yes Telehealth method: voice only Patient verbally consented to treatment: Yes Patient verbally consented to billing insurance company: Yes Patient informed of any privacy concerns related to visit: Yes Minutes spent on Phone/Video with Pt.: 7 Assessment and Plan Assessment & Plan (1) Hypercholesterolemia: Code(s): E78.00 - Pure hypercholesterolemia, unspecified Plan: Direct LDL cholesterol is too high Start atorvastatin 20 mg daily Will follow-up on this at next visit (2) Hypercalcemia: Code(s): E83.52 - Hypercalcemia Plan: Mild Increase hydration. Will recheck with next blood draw (3) Pre-diabetes: Code(s): R73.03 - Prediabetes Plan: Elevated fasting blood sugars and her A1c is 5.9%; pre diabetes range Encouraged a diet lower in sugars and starches Will follow-up at next visit Medications: New atorvastatin 20 mg PO BEDTIME 30 days 30 tabs 2RF Coding Level of Care Code Tele Est Pt Level 2 (86599) Diagnoses Hypercholesterolemia E78.00 Hypercalcemia E83.52 Pre-diabetes R73.03
== END 2023-01-22 15:00 | disposition home or self-care (01) ==
LOC: HO.HMGFM 14:47
PROVIDERS: PCP Family Medicine; Visit Provider Family Medicine
DX: E78.00 Pure hypercholesterolemia, unspecified (principal); E83.52 Hypercalcemia; R73.03 Prediabetes
CPT/HCPCS: 99212

== ENCOUNTER 2023-01-23 08:02 | Outpatient (REF) | payer OTHER, SELFPAY ==
[2023-01-27 13:34] LABS: Transglutaminase Ab IgG <1.0 U/mL; Transglutaminase IgA <1.0 U/mL
== END 2023-01-23 08:03 | disposition home or self-care (01) ==
LOC: HO.LAB 08:02
PROVIDERS: Visit Provider Nurse Practitioner
DX: R19.7 Diarrhea, unspecified (principal); K59.04 Chronic idiopathic constipation; K21.9 Gastro-esophageal reflux disease without esophagitis
CPT/HCPCS: 36415; 86003; 86364; 99212

== ENCOUNTER 2023-01-23 08:02 | Outpatient (AMB) | payer OTHER, SELFPAY ==
--- NOTE | 2023-01-23 08:11 | A.OFFVIS_ITS ---
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 The senna worked at first but then stopped and she had bloating and pain in the upper abd with cramping. Her insurance did not pay for bisacodyl. Also had high copay for AMitza in past. Famotidine is ok for her HB. ROV 4 mos r/t copay (2) GERD (gastroesophageal reflux disease): ?Code(s): K21.9 - Gastro-esophageal reflux disease without esophagitis TODAY'S VISIT She is not taking bisacodyl, she is taking magnesium and this moves her bowels at least a little bit every day. But she is having a lot of bloating and flatulence and worse HB. She thought she had to stop the famotidine but this is not true, renewed. We have had trouble moving her to something like Amitiza or Linzess because of insurance coverage. She has tried simethicone for her bloating and this did not work. Will trial creon and send for TTGA as she thinks breads bloat her and RAST. Discussed FODMAP. I printed her a copy of this diet from clinical nutrition to see if she can eliminate some of the worst culprit the cause her bloating. She continues on her famotidine for her heartburn. ' ROV 6 weeks. [facility] Medical History Bunion Essential hypertension Pre-diabetes Surgical History History of colonoscopy with polypectomy Hx of section Hx of tonsillectomy Family History Mother Diabetes Brother Diabetes Sister Diabetes Social History Housing: Apartment Alcohol intake: never Patient Tobacco Use Status: Never used Tobacco e-Cigarette/Vaping Use: Never Used Second Hand Smoke Exposure: No service: No Current occupational status: employed Current occupational exposures/hazards: No Sexual orientation: Straight/Heterosexual Gender identity: Female Cognitive needs: No Hearing needs: No Vision needs: No Female Reproductive History Menstrual Age of Menarche: 12 Review of Systems Const Denies fatigue, Denies fever(s), Denies night sweats, Denies poor appetite and Denies weight loss ENT Reports Normal hearing present, Denies dental pain, Denies dysphagia, Denies hearing loss, Denies mouth pain, Denies odynophagia, Denies throat swelling, Denies tongue swelling and Reports other (Dentition adequate) Card Reports no additional complaints Resp Reports no additional complaints GI Denies abdominal pain, Denies melena, Reports bloating, Denies hematochezia, Reports constipation, Denies GI cramping, Denies dysphagia, Reports excessive flatus, Denies early satiety, Reports heartburn, Reports diarrhea, Denies nausea, Denies odynophagia, Denies vomiting and Denies hematemesis Skin/Breast Denies pruritus, Denies lesions, Denies rash and Denies jaundice Neuro Reports Normal hearing present and Denies Abnormal speech present Endo Denies fatigue Aller/Immun Denies throat swelling and Denies tongue swelling Physical Exam Vital Signs: Last Vital Signs Pulse 65 01/23/23 08:26 BP 142/82 H 01/23/23 08:26 BMI result Body Mass Index 28.5 Const General: cooperative, no acute distress, well developed and well groomed Nutritional Appearance: average body habitus and well nourished Orientation/consciousness: oriented to person, oriented to place and oriented to time Limitations: No language barrier HEENT Head: Yes normocephalic and Yes atraumatic Eyes General: appearance normal, both eyes and all related structures Pupils: Equal, round and reactive pupils present Neck Neck: Yes normal visual inspection and Yes no lymphadenopathy Thyroid: Thyroid normal Resp Effort & Inspection: normal respiratory effort and able to speak in complete sentences Auscultation: clear to auscultation bilaterally Cardio Rate: regular rate Rhythm: regular rhythm Heart sounds: Normal, physiologic split S2 sound present Peripheral pulses: radial pulses present and posterior tibial pulses present GI Inspection: No distended and No Abdominal panniculus present Palpation (GI): Soft to palpation, nontender, no guarding, not rigid and No hepatosplenomegaly present Percussion: Yes normal to percussion Auscultation: normal bowel sounds Rectal Exam - Female: deferred Skin General skin exam: no rashes or lesions noted, turgor normal, skin not dry, no jaundice, No spider nevi and no striae Rashes: no rashes Nails: normal Neuro General: oriented to person, oriented to place and oriented to time Cranial nerves: Yes Equal, round and reactive pupils present and Yes Normal hearing present Speech: No Abnormal speech present Extrem General: Yes normal to inspection, No clubbing, No cyanosis and No edema Psych Appearance: grossly normal and well kempt Mental Status: mental status grossly normal Speech and movement: Normal speech and movement present Affect: normal affect Attitude: cooperative Thought process: Normal thought process present and not confabulating Thought content: Normal thought content present Insight: Limited insight present (Psych) Judgement: Limited judgement present (Psych) Assessment & Plan Assessment & Plan (1) Chronic idiopathic constipation: Code(s): K59.04 - Chronic idiopathic constipation Plan: She is not taking bisacodyl, she is taking magnesium and this moves her bowels at least a little bit every day. But she is having a lot of bloating and flatulence and worse HB. She thought she had to stop the famotidine but this is not true, renewed. We have had trouble moving her to something like Amitiza or Linzess because of insurance coverage. She has tried simethicone for her bloating and this did not work. Will trial creon and send for TTGA as she thinks breads bloat her and RAST. Discussed FODMAP. I printed her a copy of this diet from clinical nutrition to see if she can eliminate some of the worst culprit the cause her bloating. She continues on her famotidine for her heartburn. ' ROV 6 weeks. (2) GERD (gastroesophageal reflux disease): Code(s): K21.9 - Gastro-esophageal reflux disease without esophagitis (3) Diarrhea: Code(s): R19.7 - Diarrhea, unspecified Orders: Orders Transglutaminase IgA Today R19.7 - Diarrhea, unspecified Transglutaminase Ab IgG Today R19.7 - Diarrhea, unspecified Rast Allergen Today R19.7 - Diarrhea, unspecified Medications: New [id number] 24,000-76,000 -120,000 unit (Creon) administer with meals and/or snacks 2 caps PO BID 30 days 120 caps 3RF K58.9 - Irritable bowel syndrome without diarrhea Refilled famotidine (Pepcid) 40 mg PO BEDTIME 30 tabs 6RF K21.9 - Gastro-esophageal reflux disease without esophagitis Coding Level of Care Code Est Pt Level 3 (60942) Diagnoses Chronic idiopathic constipation K59.04 GERD (gastroesophageal reflux disease) K21.9 Diarrhea R19.7
[2023-01-23 08:26] VITALS: BP 142/82; PULSE 65; BMI 28.5
== END 2023-01-23 08:43 | disposition home or self-care (01) ==
PROVIDERS: Visit Provider Nurse Practitioner
DX: K59.04 Chronic idiopathic constipation (principal); K21.9 Gastro-esophageal reflux disease without esophagitis; R19.7 Diarrhea, unspecified
CPT/HCPCS: 99213

== ENCOUNTER 2023-03-06 07:57 | Outpatient (AMB) | payer OTHER, SELFPAY ==
--- NOTE | 2023-03-06 08:02 | MHC.OFFVIS ---
Intake Vital Signs 03/06/23 08:04 Height 5 ft 1 in Weight 148 lb BMI 28.0 BP 133/60 Blood Pressure Location Lt brachial Position Sitting Pulse 61 Intake Visit Reasons: 6 week follow up Intake Note: Patient follow up for Constipation and lab results. Patient cc: constipation, abdominal bloating and pain on and off, GERD . Denies any other GI issues. 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 But she is having a lot of bloating and flatulence and worse HB. She thought she had to stop the famotidine but this is not true, renewed. We have had trouble moving her to something like Amitiza or Linzess because of insurance coverage. She has tried simethicone for her bloating and this did not work. Will trial creon and send for TTGA as she thinks breads bloat her and RAST. Discussed FODMAP. I printed her a copy of this diet from clinical nutrition to see if she can eliminate some of the worst culprit the cause her bloating. She continues on her famotidine for her heartburn. ' ROV 6 weeks. (2) GERD (gastroesophageal reflux disease): Code(s): K21.9 - Gastro-esophageal reflux disease without esophagitis (3) Diarrhea: Code(s): R19.7 - Diarrhea, unspecified Orders: Orders Transglutaminase I gA Today R19.7 - Diarrhea, unspecified Transglutaminase A b IgG Today R19.7 - Diarrhea, unspecified Rast Allergen Today R19.7 - Diarrhea, unspecified Medications: New iucwbz-adzrqebu-nk ylase 24,000-76,00 0 -120,000 unit (C reon) administe r with meals and/o r snacks 2 caps PO BID 30 days 120 caps 3RF K58.9 - Irritable bowel syndrome wit hout diarrhea Refilled famotidine (Pepcid ) 40 mg PO BEDTIME 30 tabs 6RF K21.9 - Gastro-eso phageal reflux dis ease without esoph agitis LABS: 01/23/[address] [facility] [address]: ORDERED: Transglut IgG, Tr ansglut IgA Test Result Flag Refere nce Si te Transglut IgG <1.0 U/mL QU M Value Interpretati on ----- --- <15.0 Antibody n ot detected > or = 15.0 An tibody detected THIS TEST WAS PERFORMED AT: [facility] [address] [facility] [place] [id number] KANDY VEGA MD Transglut Ig A <1.0 U/mL QUM Value Interpret ation ----- -------- ------ <15. 0 Antibod y not detected > or = 15.0 Antibody detected THIS TEST WAS PERFORMED AT: [facility] [address] [place] [id number] KANDY YBARRA MD RAST allergy panel indicates a low allergy to wrong milk but okay when cooked as what she is allergic to is easily denatured by heat. CORRESPONDENCE On 01/31/23 @ 11:47 Fara Cohen Wrote To Nix I spoke w/ insurance and then transferred to [facility] for more info. so unfortunately it looks like regardless of med, patient will still have an out of pocket cost as she has not met her deductible for the year. Zenpep, 30 day supply (lowest dose) $116 copay Viokace, 30 day supply (lowest dose) $ 113.16 copay PA required Sucraid, 30 day supply $111.13 copay Pertzye, 30 day supply $159.68 copay On 01/31/23 @ 11:06 Boyd Wrote To Fara Cohen Can we please call her insurance and find out if there is a preferred brand of digestive enzyme? Ex. Zenpep, Viokace, Sucraid, Pertzye, Ultrasa. On 01/31/23 @ 10:59 Fara Cohen Wrote To Nix,September no PA is needed - medication is covered per insurance. It looks like there was a recent change in her insurance and med is covered but deductible would still be $919, I told pharmacy to hold off on filling med. please advise On 01/30/23 @ 15:25 Mya Thao Wrote To Fara Cohen pt called and stated that the creon is not covered and she is asking for something that is covered. TODAY'S VISIT She never got the digestive enzymes r/t cost of copay. She admits she has continues severe bloating after eating but also only moves her bowels about twice a week. She will move very small hard pieces and has incomplete evacuation. She has failed Miralax, senna, bisacodyl, colace, fiber. Will move to Linzess 145mcg and titrate. She has had no success for her bloating with simethicone, and she continues on her famotidine with good HB control. Also discussed [employer] digegtive enzymes. She finds bread quite bloating after trying the FODMAP diet but sometimes other random things do (milk and cheese too). She may have mild lactose intolerance. She also has a mild milk allergy but should tolerate cooked milk in sauces and baking. ROV 3 weeks. [facility] Medical History Bunion Essential hypertension Pre-diabetes Surgical History Hx of tonsillectomy History of colonoscopy with polypectomy Hx of section Family History Mother Diabetes Brother Diabetes Sister Diabetes Social History Housing: Apartment Alcohol intake: never Patient Tobacco Use Status: Never used Tobacco e-Cigarette/Vaping Use: Never Used Second Hand Smoke Exposure: No service: No Current occupational status: employed Current occupational exposures/hazards: No Sexual orientation: Straight/Heterosexual Gender identity: Female Cognitive needs: No Hearing needs: No Vision needs: No Female Reproductive History Menstrual Age of Menarche: 12 Review of Systems Const Denies fatigue, Denies fever(s), Denies night sweats, Denies poor appetite and Denies weight loss ENT Reports Normal hearing present, Denies dental pain, Denies dysphagia, Denies hearing loss, Denies mouth pain, Denies odynophagia, Denies throat swelling, Denies tongue swelling and Reports other (Dentition adequate) Card Reports no additional complaints Resp Reports no additional complaints GI Denies abdominal pain, Denies melena, Reports bloating, Denies hematochezia, Reports constipation, Denies GI cramping, Denies dysphagia, Denies excessive flatus, Denies early satiety, Reports heartburn, Denies diarrhea, Denies nausea, Denies odynophagia, Denies vomiting and Denies hematemesis Skin/Breast Denies pruritus, Denies lesions, Denies rash and Denies jaundice Neuro Reports Normal hearing present and Denies Abnormal speech present Endo Denies fatigue Aller/Immun Denies throat swelling and Denies tongue swelling Physical Exam Vital Signs: Last Vital Signs Pulse 61 03/06/23 08:04 BP 133/60 03/06/23 08:04 BMI result Body Mass Index 28.0 Const General: cooperative, no acute distress, well developed and well groomed Nutritional Appearance: average body habitus and well nourished Orientation/consciousness: oriented to person, oriented to place and oriented to time Limitations: No language barrier HEENT Head: Yes normocephalic and Yes atraumatic Eyes General: appearance normal, both eyes and all related structures Pupils: Equal, round and reactive pupils present Neck Neck: Yes normal visual inspection and Yes no lymphadenopathy Thyroid: Thyroid normal Resp Effort & Inspection: normal respiratory effort and able to speak in complete sentences Auscultation: clear to auscultation bilaterally Cardio Rate: regular rate Rhythm: regular rhythm Heart sounds: Normal, physiologic split S2 sound present Peripheral pulses: radial pulses present and posterior tibial pulses present GI Inspection: No distended and No Abdominal panniculus present Palpation (GI): Soft to palpation, nontender, no guarding, not rigid and No hepatosplenomegaly present Percussion: Yes normal to percussion Auscultation: normal bowel sounds Rectal Exam - Female: deferred Skin General skin exam: no rashes or lesions noted, turgor normal, skin not dry, no jaundice, No spider nevi and no striae Rashes: no rashes Nails: normal Neuro General: oriented to person, oriented to place and oriented to time Cranial nerves: Yes Equal, round and reactive pupils present and Yes Normal hearing present Speech: No Abnormal speech present Extrem General: Yes normal to inspection, No clubbing, No cyanosis and No edema Psych Appearance: grossly normal and well kempt Mental Status: mental status grossly normal Speech and movement: Normal speech and movement present Affect: normal affect Attitude: cooperative Thought process: Normal thought process present and not confabulating Thought content: Normal thought content present Insight: Fair insight present (Psych) Judgement: Fair judgement present (Psych) Assessment & Plan Assessment & Plan (1) Chronic idiopathic constipation: Code(s): K59.04 - Chronic idiopathic constipation Plan: She never got the digestive enzymes r/t cost of copay. She admits she has continues severe bloating after eating but also only moves her bowels about twice a week. She will move very small hard pieces and has incomplete evacuation. She has failed Miralax, senna, bisacodyl, colace, fiber. Will move to Linzess 145mcg and titrate. She has had no success for her bloating with simethicone, and she continues on her famotidine with good HB control. Also discussed [employer] digegtive enzymes. She finds bread quite bloating after trying the FODMAP diet but sometimes other random things do (milk and cheese too). She may have mild lactose intolerance. She also has a mild milk allergy but should tolerate cooked milk in sauces and baking. ROV 3 weeks. (2) GERD (gastroesophageal reflux disease): Code(s): K21.9 - Gastro-esophageal reflux disease without esophagitis (3) Milk allergy: Comment: Mild on RAST, ok with cooked milk Code(s): Z91.011 - Allergy to milk products Medications: New linaclotide (Linzess) 145 mcg PO QAM 30 caps 3RF K59.04 - Chronic idiopathic constipation Coding Level of Care Code Est Pt Level 3 (00955) Diagnoses Chronic idiopathic constipation K59.04 GERD (gastroesophageal reflux disease) K21.9 Milk allergy Z91.011
[2023-03-06 08:04] VITALS: BP 133/60; PULSE 61; BMI 28.0
== END 2023-03-06 08:31 | disposition home or self-care (01) ==
PROVIDERS: PCP Family Medicine; Referring Provider Family Medicine; Visit Provider Nurse Practitioner
DX: K59.04 Chronic idiopathic constipation (principal); K21.9 Gastro-esophageal reflux disease without esophagitis; Z91.011 Allergy to milk products
CPT/HCPCS: 99213

== ENCOUNTER → 2023-03-06 07:57 | Outpatient (BNVA) | payer OTHER, SELFPAY | PROVIDERS: PCP Family Medicine; Referring Provider Family Medicine; Visit Provider Nurse Practitioner | DX: K59.04 Chronic idiopathic constipation (principal); K21.9 Gastro-esophageal reflux disease without esophagitis; Z91.011 Allergy to milk products | CPT/HCPCS: 99212 ==

== ENCOUNTER 2023-04-01 08:14 | Outpatient (AMB) | payer OTHER, SELFPAY ==
--- NOTE | 2023-04-01 08:23 | MHC.OFFVIS ---
Intake Vital Signs 04/01/23 08:24 04/01/23 08:32 Height 5 ft 1 in Weight 150 lb 5.684 oz BMI 28.4 BP 169/70 H 127/71 Blood Pressure Location Rt brachial Position Sitting Pulse 76 Intake Visit Reasons: 3 week follow up Intake Note: Patient here for 3 week f/u, CIC. CC: Patient notes no improvement. Patient states medication prescribed is not covered by insurance and its too expensive. Patients last bowel movement on Friday, still experiencing bloating. Allergies No Known Allergies Allergy (Verified 04/01/23 08:28) Medication List - Last Reconciled 04/01/23 by Fara Cohen RN atorvastatin 20 mg PO BEDTIME 30 days famotidine (Pepcid) 40 mg PO BEDTIME ibuprofen 600 mg PO Q8H PRN 14 days linaclotide (Linzess) 145 mcg PO QAM lisinopril 20 mg PO DAILY 90 days naproxen 500 mg PO BID PRN 30 days HPI 3 week follow up HPI Details Assessment & Plan (1) Chronic idiopathic constipation: Code(s): K59.04 - Chronic idiopathic constipation Plan: She never got the digestive enzymes r/t cost of copay. She admits she has continues severe bloating after eating but also only moves her bowels about twice a week. She will move very small hard pieces and has incomplete evacuation. She has failed Miralax, senna, bisacodyl, colace, fiber. Will move to Linzess 145mcg and titrate. She has had no success for her bloating with simethicone, and she continues on her famotidine with good HB control. Also discussed [employer] digestive enzymes. She finds bread quite bloating after trying the FODMAP diet but sometimes other random things do (milk and cheese too). She may have mild lactose intolerance. She also has a mild milk allergy but should tolerate cooked milk in sauces and baking. ROV 3 weeks. (2) GERD (gastroesophageal reflux disease): Code(s): K21.9 - Gastro-esophageal reflux disease without esophagitis (3) Milk allergy: Comment: Mild on RAST, ok with cooked milk Code(s): Z91.011 - Allergy to milk products Medications: New linaclotide (Linze ss) 145 mcg PO QAM 30 caps 3RF K59.04 - Chronic i diopathic constipa tion CORRESPONDENCE On 01/31/23 @ 11:47 Fara Cohen Wrote To BoydSeptember I spoke w/ insurance and then transferred to [employer] for more info. so unfortunately it looks like regardless of med, patient will still have an out of pocket cost as she has not met her deductible for the year. Zenpep, 30 day supply (lowest dose) $116 copay Viokace, 30 day supply (lowest dose) $ 113.16 copay PA required Sucraid, 30 day supply $111.13 copay Pertzye, 30 day supply $159.68 copay On 01/31/23 @ 11:06 BoydMelisa Wrote To Fara Cohen Can we please call her insurance and find out if there is a preferred brand of digestive enzyme? Ex. Zenpep, Viokace, Sucraid, Pertzye, Ultrasa. On 01/31/23 @ 10:59 Fara Cohen Wrote To BoydSeptember no PA is needed - medication is covered per insurance. It looks like there was a recent change in her insurance and med is covered but deductible would still be $919, I told pharmacy to hold off on filling med. please advise On 01/30/23 @ 15:25 Mya Thao Wrote To Fara Cohen pt called and stated that the creon is not covered and she is asking for something that is covered.. TODAY'S VISIT She never received the Linzess 145 mcg. Obviously there is a problem with insurance because she said she had to pay about 300 dollars for it. Will be looking into this. Obviously she has not changed in terms of her presentation since we have done nothing to help alleviate the symptoms severe bloating. She understands what is been happening. She has had no success for her bloating with simethicone, and she continues on her famotidine with good HB control. She is also does not have the Creon because of insurance problems but were also looking into the patient nursing assistant program for her. Return office visit in 4 weeks. [facility] Medical History Bunion Essential hypertension Pre-diabetes Surgical History Hx of tonsillectomy History of colonoscopy with polypectomy Hx of section Family History Mother Diabetes Brother Diabetes Sister Diabetes Social History Housing: Apartment Alcohol intake: never Patient Tobacco Use Status: Never used Tobacco e-Cigarette/Vaping Use: Never Used Second Hand Smoke Exposure: No service: No Current occupational status: employed Current occupational exposures/hazards: No Sexual orientation: Straight/Heterosexual Gender identity: Female Cognitive needs: No Hearing needs: No Vision needs: No Female Reproductive History Menstrual Age of Menarche: 12 Review of Systems Const Denies fatigue, Denies fever(s), Denies night sweats, Denies poor appetite and Denies weight loss ENT Reports Normal hearing present, Denies dental pain, Denies dysphagia, Denies hearing loss, Denies mouth pain, Denies odynophagia, Denies throat swelling, Denies tongue swelling and Reports other (Dentition adequate) Card Reports no additional complaints Resp Reports no additional complaints GI Denies abdominal pain, Denies melena, Reports bloating, Denies hematochezia, Reports constipation, Denies GI cramping, Denies dysphagia, Denies excessive flatus, Denies early satiety, Reports heartburn, Denies diarrhea, Denies nausea, Denies odynophagia, Denies vomiting and Denies hematemesis Skin/Breast Denies pruritus, Denies lesions, Denies rash and Denies jaundice Neuro Reports Normal hearing present and Denies Abnormal speech present Endo Denies fatigue Aller/Immun Denies throat swelling and Denies tongue swelling Physical Exam Vital Signs: Last Vital Signs Pulse 76 04/01/23 08:24 BP 127/71 04/01/23 08:32 BMI result Body Mass Index 28.4 Const General: cooperative, no acute distress, well developed and well groomed Nutritional Appearance: well nourished and overweight Orientation/consciousness: oriented to person, oriented to place and oriented to time Limitations: No language barrier HEENT Head: Yes normocephalic and Yes atraumatic Eyes General: appearance normal, both eyes and all related structures Pupils: Equal, round and reactive pupils present Neck Neck: Yes normal visual inspection and Yes no lymphadenopathy Thyroid: Thyroid normal Resp Effort & Inspection: normal respiratory effort and able to speak in complete sentences Auscultation: clear to auscultation bilaterally Cardio Rate: regular rate Rhythm: regular rhythm Heart sounds: Normal, physiologic split S2 sound present Peripheral pulses: radial pulses present and posterior tibial pulses present GI Inspection: No distended and No Abdominal panniculus present Palpation (GI): Soft to palpation, nontender, no guarding, not rigid and No hepatosplenomegaly present Percussion: Yes normal to percussion Auscultation: normal bowel sounds Rectal Exam - Female: deferred Skin General skin exam: no rashes or lesions noted, turgor normal, skin not dry, no jaundice, No spider nevi and no striae Rashes: no rashes Nails: normal Neuro General: oriented to person, oriented to place and oriented to time Cranial nerves: Yes Equal, round and reactive pupils present and Yes Normal hearing present Speech: No Abnormal speech present Extrem General: Yes normal to inspection, No clubbing, No cyanosis and No edema Psych Appearance: grossly normal and well kempt Mental Status: mental status grossly normal Speech and movement: Normal speech and movement present Affect: normal affect Attitude: cooperative Thought process: Normal thought process present and not confabulating Thought content: Normal thought content present Insight: Fair insight present (Psych) Judgement: Fair judgement present (Psych) Assessment & Plan Assessment & Plan (1) Chronic idiopathic constipation: Code(s): K59.04 - Chronic idiopathic constipation Plan: She never received the Linzess 145 mcg. Obviously there is a problem with insurance because she said she had to pay about 300 dollars for it. Will be looking into this. Obviously she has not changed in terms of her presentation since we have done nothing to help alleviate the symptoms severe bloating. She understands what is been happening. She has had no success for her bloating with simethicone, and she has famotidine available for breakthrough heartburn that is not sufficiently controlling it alone. She is also does not have the Creon because of insurance problems but were also looking into the patient nursing assistant program for her. Return office visit in 4 weeks. (2) GERD (gastroesophageal reflux disease): Code(s): K21.9 - Gastro-esophageal reflux disease without esophagitis (3) Milk allergy: Comment: Mild on RAST, ok with cooked milk Code(s): Z91.011 - Allergy to milk products (4) Diarrhea: Code(s): R19.7 - Diarrhea, unspecified Coding Level of Care Code Est Pt Level 3 (07934) Diagnoses Chronic idiopathic constipation K59.04 GERD (gastroesophageal reflux disease) K21.9 Milk allergy Z91.011 Diarrhea R19.7
[2023-04-01 08:24] VITALS: BP 169/70; PULSE 76; BMI 28.4
[2023-04-01 08:32] VITALS: BP 127/71
== END 2023-04-01 10:08 | disposition home or self-care (01) ==
PROVIDERS: PCP Family Medicine; Visit Provider Nurse Practitioner
DX: K59.04 Chronic idiopathic constipation (principal); K21.9 Gastro-esophageal reflux disease without esophagitis; Z91.011 Allergy to milk products; R19.7 Diarrhea, unspecified
CPT/HCPCS: 99213

== ENCOUNTER → 2023-04-01 08:14 | Outpatient (BNVA) | payer OTHER, SELFPAY | PROVIDERS: PCP Family Medicine; Visit Provider Nurse Practitioner | DX: K59.04 Chronic idiopathic constipation (principal); K21.9 Gastro-esophageal reflux disease without esophagitis; Z91.011 Allergy to milk products; R19.7 Diarrhea, unspecified | CPT/HCPCS: 99212 ==

== ENCOUNTER 2023-04-17 06:52 | Outpatient (REF) | payer OTHER, SELFPAY ==
[2023-04-17 07:30] LABS: Estimated Average Glucose 126 mg/dL
[2023-04-17 07:48] LABS: Alanine Aminotransferase 25 U/L (0-31); Albumin Level 4.5 g/dL (3.5-5.0); Alkaline Phosphatase 136 U/L (39-117); Anion Gap 14 (12-20); Aspartate Amino Transferase 25 U/L (5-31); Bilirubin Total 1.4 mg/dL (0.0-1.0); Blood Urea Nitrogen 11 mg/dL (9-16); Carbon Dioxide 26 mmol/L (22-29); Chloride 106 mmol/L (96-108); Cholesterol 135 mg/dL (<200); Estimated Glomerular Filt Rate > 60; Glucose Fasting 121 mg/dL (60-99); HDL Cholesterol 34 mg/dL (>40); LDL Cholesterol Calculated 73 mg/dL (<100); Potassium 4.8 mmol/L (3.3-5.1); Sodium 141 mmol/L (135-145); Total Protein 7.7 g/dL (6.5-8.0); Triglycerides 143 mg/dL (<150)
== END 2023-04-17 06:53 | disposition home or self-care (01) ==
LOC: HO.LAB 06:52
PROVIDERS: PCP Family Medicine; Visit Provider Family Medicine
DX: Z00.00 Encounter for general adult medical examination without abnormal findings (principal); E78.00 Pure hypercholesterolemia, unspecified; R73.01 Impaired fasting glucose; R73.03 Prediabetes; E83.52 Hypercalcemia
CPT/HCPCS: 36415; 80053; 80061; 83036

== ENCOUNTER 2023-04-24 10:24 | Outpatient (AMB) | payer OTHER, SELFPAY ==
[2023-04-24 10:28] VITALS: BP 126/74; PULSE 75; O2SAT 97; BMI 28.4
--- NOTE | 2023-04-24 10:28 | MHC.PC.OV ---
Vital Signs 04/24/23 10:28 Height 5 ft 1 in Weight 150 lb 2 oz BMI 28.4 BP 126/74 Blood Pressure Location Lt brachial Position Sitting Pulse 75 Pulse Source Pulse Oximeter Pulse Oximetry (%) 97 Oxygen Delivery Method Room Air Intake Visit Reasons: f/u hypercholesterolemia Intake Note: Patient is following up on her cholesterol today, she is concerned of right ear infection, came abck after taking antibiotics, with some dizziness. Allergies No Known Allergies Allergy (Verified 04/24/23 10:33) Tobacco use date assessed: 04/24/23 HPI f/u hypercholesterolemia HPI Details 57 y/o female presents to f/u hypercholesterolemia. Labs were drawn 04/17/23. Reviewed labs with pt. Elevated fasting glucose of 121 and A1c 6.0%. Triglycerides 143. TC 135. LDL 73. HDL low at 34. She notes she exercises about 4x a week. Pt reports ? R ear infection. She reports some dizziness. [facility] Medical History Bunion Essential hypertension Pre-diabetes Surgical History Hx of tonsillectomy History of colonoscopy with polypectomy Hx of section Family History Mother Diabetes Brother Diabetes Sister Diabetes Social History Housing: Apartment Alcohol intake: never Patient Tobacco Use Status: Never used Tobacco e-Cigarette/Vaping Use: Never Used Second Hand Smoke Exposure: No service: No Current occupational status: employed Current occupational exposures/hazards: No Sexual orientation: Straight/Heterosexual Gender identity: Female Cognitive needs: No Hearing needs: No Vision needs: No Female Reproductive History Menstrual Age of Menarche: 12 Questionnaire GOKUL-7 AMB Questionnaire GOKUL-7 Date GOKUL - 7 assessed: 12/28/21 Source: Developed by Drs. Jaime Stephens, Halle Guevara, Hola Harmon and colleagues, with an educational socorro from [employer]. Physical exam (Primary Care) Vital Signs: Last Vital Signs Pulse 75 04/24/23 10:28 BP 126/74 04/24/23 10:28 Pulse Ox 97 04/24/23 10:28 Oxygen Delivery Method Room Air 04/24/23 10:28 BMI result Body Mass Index 28.4 Tobacco/Smoking Status: Tobacco use Status Tobacco use date assessed 04/24/23 04/24/23 10:34 Patient Tobacco Use Status Never used Tobacco 04/24/23 10:28 e-Cigarette/Vaping Use Never Used 04/24/23 10:28 Results AMB Hemoglobin A1c AMB Hemoglobin A1c 6.4 % Last Edit by Laurie Sunshine CMA on 04/24/23 11:11 Assessment and Plan Assessment & Plan (1) Hypercholesterolemia: Code(s): E78.00 - Pure hypercholesterolemia, unspecified Plan: LDL?cholesterol?much?improved?and?at?goal Will?continue?atorvastatin?20?mg?daily (2) Low HDL (under 40): Code(s): E78.6 - Lipoprotein deficiency Plan: HDL?is?too?low.??Continue?exercise Increase?Animas?3?fatty?acids?in?diet (3) Right otitis media: Code(s): H66.91 - Otitis media, unspecified, right ear Plan: Patient?has?finished?a?course?of?antibiotics?though?she?does?not?recall?the?name. Did?not?recognize?the?name?cephalexin?so?we?will?use?this.??She?does?not?have?any allergies?to?antibiotics. (4) Pre-diabetes: Code(s): R73.03 - Prediabetes Plan: A1c?was?5.9%?at?last?visit A1c?today 6.4% She?has?a?strong?family?history?of?diabetes.??We?discussed?that?if?A1c?continues?to?worsen?we?will?need?to?discuss?medications?for?diabetes. Encouraged?diet?low?in?sugars?and?starches.??Encouraged?ongoing?exercise?and?encouraged?weight?loss. Will?follow?closely Orders: Orders AMB Hemoglobin A1c Today Z13.9 - Encounter for screening, unspecified Medications: New cephalexin 500 mg PO Q12H 7 days 14 caps 0RF Coding Level of Care Code Est Pt Level 4 (13299) Diagnoses Hypercholesterolemia E78.00 Low HDL (under 40) E78.6 Right otitis media H66.91 Pre-diabetes R73.03
== END 2023-04-24 11:15 | disposition home or self-care (01) ==
PROVIDERS: PCP Family Medicine; Visit Provider Family Medicine
DX: E78.00 Pure hypercholesterolemia, unspecified (principal); E78.6 Lipoprotein deficiency; H66.91 Otitis media, unspecified, right ear; R73.03 Prediabetes; Z13.9 Encounter for screening, unspecified
CPT/HCPCS: 83036; 99214

== ENCOUNTER 2023-06-24 07:58 | Outpatient (AMB) | payer OTHER, SELFPAY ==
--- NOTE | 2023-06-24 08:04 | A.OFFVIS_ITS ---
Intake Vital Signs 06/24/23 08:06 Height 5 ft 1 in Weight 149 lb 14.629 oz BMI 28.3 BP 127/62 Blood Pressure Location Lt brachial Position Sitting Pulse 64 Intake Visit Reasons: r/s from 04/29 Intake Note: Keli presents in the office as a follow up. CC: She states that she is feeling okay and not having any concerns today! Allergies No Known Allergies Allergy (Verified 06/24/23 08:06) HPI r/s from 04/29 HPI Details Assessment & Plan (1) Chronic idiopathic constipation: Code(s): K59.04 - Chronic idiopathic constipation Plan: She never received the Linzess 145 mcg. Obviously there is a problem with insurance because she said she had to pay about 300 dollars for it. Will be looking into this. Obviously she has not changed in terms of her presentation since we have done nothing to help alleviate the symptoms severe bloating. She understands what is been happening. She has had no success for her bloating with simethicone, and she has famotidine available for breakthrough heartburn that is not sufficiently controlling it alone. She is also does not have the Creon because of insurance problems but were also looking into the patient podiatry assistant program for her. Return office visit in 4 weeks. (2) GERD (gastroesophageal reflux diseas e): Code(s): K21.9 - Gastro-esophageal reflux disease without esophagitis (3) Milk allergy: Comment: Mild on RAST, ok with cooked milk Code(s): Z91.011 - Allergy to milk products (4) Diarrhea: Code(s): R19.7 - Diarrhea, unspecified TODAY'S VISIT She was doing well on the Linzess 145mcg but then we found that she had and hit her insurance deductible so I gave her a coupon. That was for 1 month. Now I gave her 3 month coupon which I believe is a 90 day supply for 30 dollars so we will send a new prescription for 90 days. After that will have to evaluate where she is with her insurance and her to deductible. She continues to do well on the famotidine at bedtime. Return office visit in 3 months [facility] Medical History (Updated 06/24/23 @ 08:11 by LEVI Lemus) Breast cancer screening by mammogram Screening for cervical cancer Screening for colon cancer Adult general medical examination Bunion Essential hypertension Pre-diabetes Surgical History (Updated 06/24/23 @ 08:06 by ALAN Canales) History of esophagogastroduodenoscopy (EGD) Hx of tonsillectomy History of colonoscopy with polypectomy Hx of section Family History Mother Diabetes Brother Diabetes Sister Diabetes Social History Housing: Apartment Alcohol intake: never Patient Tobacco Use Status: Never used Tobacco e-Cigarette/Vaping Use: Never Used Second Hand Smoke Exposure: No service: No Current occupational status: employed Current occupational exposures/hazards: No Sexual orientation: Straight/Heterosexual Gender identity: Female Cognitive needs: No Hearing needs: No Vision needs: No Female Reproductive History Menstrual Age of Menarche: 12 Review of Systems Const Denies fatigue, Denies fever(s), Denies night sweats, Denies poor appetite and Denies weight loss ENT Reports Normal hearing present, Denies dental pain, Denies dysphagia, Denies hearing loss, Denies mouth pain, Denies odynophagia, Denies throat swelling, Denies tongue swelling and Reports other (Dentition adequate) Card Reports no additional complaints Resp Reports no additional complaints GI Denies abdominal pain, Denies melena, Denies bloating, Denies hematochezia, Reports constipation, Denies GI cramping, Denies dysphagia, Denies excessive flatus, Denies early satiety, Reports heartburn, Denies diarrhea, Denies nausea, Denies odynophagia, Denies vomiting and Denies hematemesis Skin/Breast Denies pruritus, Denies lesions, Denies rash and Denies jaundice Neuro Reports Normal hearing present and Denies Abnormal speech present Endo Denies fatigue Aller/Immun Denies throat swelling and Denies tongue swelling Physical Exam Vital Signs: Last Vital Signs Pulse 64 06/24/23 08:06 BP 127/62 06/24/23 08:06 BMI result Body Mass Index 28.3 Const General: cooperative, no acute distress, well developed and well groomed Nutritional Appearance: average body habitus and well nourished Orientation/consciousness: oriented to person, oriented to place and oriented to time Limitations: No language barrier HEENT Head: Yes normocephalic and Yes atraumatic Eyes General: appearance normal, both eyes and all related structures Pupils: Equal, round and reactive pupils present Neck Neck: Yes normal visual inspection and Yes no lymphadenopathy Thyroid: Thyroid normal Resp Effort & Inspection: normal respiratory effort and able to speak in complete sentences Auscultation: clear to auscultation bilaterally Cardio Rate: regular rate Rhythm: regular rhythm Heart sounds: Normal, physiologic split S2 sound present Peripheral pulses: radial pulses present and posterior tibial pulses present GI Inspection: No distended and No Abdominal panniculus present Palpation (GI): Soft to palpation, nontender, no guarding, not rigid and No hepatosplenomegaly present Percussion: Yes normal to percussion Auscultation: normal bowel sounds Rectal Exam - Female: deferred Skin General skin exam: no rashes or lesions noted, turgor normal, skin not dry, no jaundice, No spider nevi and no striae Rashes: no rashes Nails: normal Neuro General: oriented to person, oriented to place and oriented to time Cranial nerves: Yes Equal, round and reactive pupils present and Yes Normal hearing present Speech: No Abnormal speech present Extrem General: Yes normal to inspection, No clubbing, No cyanosis and No edema Psych Appearance: grossly normal and well kempt Mental Status: mental status grossly normal Speech and movement: Normal speech and movement present Affect: normal affect Attitude: cooperative Thought process: Normal thought process present and not confabulating Thought content: Normal thought content present Insight: Fair insight present (Psych) Judgement: Fair judgement present (Psych) Assessment & Plan Assessment & Plan (1) GERD (gastroesophageal reflux disease): Code(s): K21.9 - Gastro-esophageal reflux disease without esophagitis (2) Chronic idiopathic constipation: Code(s): K59.04 - Chronic idiopathic constipation Plan She was doing well on the Bikanta 145mcg but then we found that she had and hit her insurance deductible so I gave her a coupon. That was for 1 month. Now I gave her 3 month coupon which I believe is a 90 day supply for 30 dollars so we will send a new prescription for 90 days. After that will have to evaluate where she is with her insurance and her to deductible. She continues to do well on the famotidine at bedtime. Return office visit in 3 months Medications: Refilled linaclotide (Linzess) 145 mcg PO QAM 90 caps 1RF K59.04 - Chronic idiopathic constipation famotidine (Pepcid) 40 mg PO BEDTIME 30 tabs 6RF K21.9 - Gastro-esophageal reflux disease without esophagitis Coding Level of Care Code Est Pt Level 3 (17025) Diagnoses GERD (gastroesophageal reflux disease) K21.9 Chronic idiopathic constipation K59.04
[2023-06-24 08:06] VITALS: BP 127/62; PULSE 64; BMI 28.3
== END 2023-06-24 09:03 | disposition home or self-care (01) ==
PROVIDERS: PCP Family Medicine; Referring Provider Family Medicine; Visit Provider Nurse Practitioner
DX: K21.9 Gastro-esophageal reflux disease without esophagitis (principal); K59.04 Chronic idiopathic constipation
CPT/HCPCS: 99213

== ENCOUNTER → 2023-06-24 07:58 | Outpatient (BNVA) | payer OTHER, SELFPAY | PROVIDERS: PCP Family Medicine; Visit Provider Nurse Practitioner | DX: K21.9 Gastro-esophageal reflux disease without esophagitis (principal); K59.04 Chronic idiopathic constipation; Z79.899 Other long term (current) drug therapy | CPT/HCPCS: 99212 ==

== ENCOUNTER 2023-07-18 07:08 | Outpatient (REF) | payer OTHER, SELFPAY ==
[2023-07-18 08:16] LABS: Alanine Aminotransferase 23 U/L (0-31); Albumin Level 4.4 g/dL (3.5-5.0); Alkaline Phosphatase 131 U/L (39-117); Anion Gap 15 (12-20); Aspartate Amino Transferase 25 U/L (5-31); Bilirubin Total 0.9 mg/dL (0.0-1.0); Blood Urea Nitrogen 15 mg/dL (9-16); Calcium 9.4 mg/dL (8.4-10.2); Carbon Dioxide 25 mmol/L (22-29); Chloride 106 mmol/L (96-108); Cholesterol 138 mg/dL (<200); Estimated Glomerular Filt Rate > 60; Glucose Fasting 131 mg/dL (60-99); HDL Cholesterol 37 mg/dL (>40); LDL Cholesterol Calculated 80 mg/dL (<100); Potassium 4.2 mmol/L (3.3-5.1); Sodium 142 mmol/L (135-145); Total Protein 7.7 g/dL (6.5-8.0); Triglycerides 106 mg/dL (<150)
== END 2023-07-18 07:09 | disposition home or self-care (01) ==
LOC: HO.LAB 07:08
PROVIDERS: PCP Family Medicine; Visit Provider Family Medicine
DX: Z00.00 Encounter for general adult medical examination without abnormal findings (principal)
CPT/HCPCS: 36415; 80053; 80061

== ENCOUNTER 2023-07-25 14:14 | Outpatient (AMB) | payer OTHER, SELFPAY ==
[2023-07-25 14:26] VITALS: BP 125/58; PULSE 62; O2SAT 98; BMI 29.3
--- NOTE | 2023-07-25 14:26 | MHC.PC.OV ---
Vital Signs 07/25/23 14:26 Height 5 ft 1 in Weight 155 lb BMI 29.3 BP 125/58 L Blood Pressure Location Lt brachial Pulse 62 Pulse Source Pulse Oximeter Pulse Oximetry (%) 98 Oxygen Delivery Method Room Air Intake Visit Reasons: f/u hypercholesterolemia Intake Note: Patient is here to follow up on her blood work for her cholesterol. Patient would like refill of her Cetirizine today. Allergies No Known Allergies Allergy (Verified 07/25/23 14:30) Tobacco use date assessed: 07/25/23 HPI f/u hypercholesterolemia HPI Details 57 y/o female presents to f/u hypercholesterolemia. Labs were drawn 07/18/23. Reviewed labs with pt. Triglycerides 106. TC 138. LDL 80. HDL low at 37. She is on artovastatin 20mg. Pt has complaints of L ear otitis media. PFSH Medical History Breast cancer screening by mammogram Screening for cervical cancer Screening for colon cancer Adult general medical examination Bunion Essential hypertension Pre-diabetes Surgical History History of esophagogastroduodenoscopy (EGD) Hx of tonsillectomy History of colonoscopy with polypectomy Hx of section Family History Mother Diabetes Brother Diabetes Sister Diabetes Social History Housing: Apartment Alcohol intake: never Patient Tobacco Use Status: Never used Tobacco e-Cigarette/Vaping Use: Never Used Second Hand Smoke Exposure: No service: No Current occupational status: employed Current occupational exposures/hazards: No Sexual orientation: Straight/Heterosexual Gender identity: Female Cognitive needs: No Hearing needs: No Vision needs: No Female Reproductive History Menstrual Age of Menarche: 12 Questionnaire GOKUL-7 AMB Questionnaire GOKUL-7 Date GOKUL - 7 assessed: 12/28/21 Source: Developed by Drs. Jaime Stephens, Halle Guevara, Hola Harmon and colleagues, with an educational socorro from [employer]. Review of Systems Const Denies chills, Denies fatigue, Denies fever(s), Denies headache(s) and Denies weakness ENT Denies dizziness and Denies headache(s) Card Denies dyspnea Resp Denies cough, Denies dyspnea, Denies wheezing and Denies other (shortness of breath) Musc Denies numbness and Denies tingling Neuro Denies dizziness, Denies headache(s), Denies numbness, Denies tingling and Denies weakness Psych Denies anxiety and Denies depression Endo Denies fatigue Aller/Immun Denies wheezing Physical exam (Primary Care) Vital Signs: Last Vital Signs Pulse 62 07/25/23 14:26 BP 125/58 L 07/25/23 14:26 Pulse Ox 98 07/25/23 14:26 Oxygen Delivery Method Room Air 07/25/23 14:26 BMI result Body Mass Index 29.3 Tobacco/Smoking Status: Tobacco use Status Tobacco use date assessed 07/25/23 07/25/23 14:34 Patient Tobacco Use Status Never used Tobacco 07/25/23 14:29 e-Cigarette/Vaping Use Never Used 07/25/23 14:29 Const General: well developed; No acute distress Nutritional Appearance: well nourished Orientation/consciousness: patient oriented x3 HENMT Head: Yes normocephalic and Yes atraumatic Eyes General: appearance normal, both eyes and all related structures Pupils: Equal, round and reactive pupils present EOM: EOMs intact bilaterally Resp Effort & Inspection: normal respiratory effort Auscultation: clear to auscultation bilaterally Cardio Rate: regular rate Rhythm: regular rhythm Heart sounds: S1 normal heart sound present, S2 normal heart sound present, no gallops, no murmurs and no rubs Neuro General: patient oriented x3 and gait normal Cranial nerves: Yes Equal, round and reactive pupils present Psych Affect: normal affect Assessment and Plan Assessment & Plan (1) Hypercholesterolemia: Code(s): E78.00 - Pure hypercholesterolemia, unspecified Plan: LDL?is?controlled?with?atorvastatin?20?mg?daily HDL?is?low?and?I?encouraged?exercise Encouraged?a?diet?lower?in?saturated?fats?and?cholesterol,?encouraged?weight?loss?and?exercise. (2) Low HDL (under 40): Code(s): E78.6 - Lipoprotein deficiency Plan: As?above (3) Pre-diabetes: Code(s): R73.03 - Prediabetes Plan: A1c?top?of?pre?diabetes?range;?6.4% Encouraged?diet?low?in?sugars?and?starches,?exercise,?weight?loss (4) Otitis media: Code(s): H66.90 - Otitis media, unspecified, unspecified ear Plan: Patient?notes?left?ear?discomfort?and?feels?congested Has?erythema?and?scant?pus Start?amoxicillin?for?left?otitis?media Warm?compress Call?or?return?to?office?if?not?improved Medications: New amoxicillin 500 mg PO Q12H 10 days 20 tabs 0RF Changed From cetirizine 10 mg PO DAILY To cetirizine 10 mg PO DAILY 90 days 90 tabs 2RF Coding Level of Care Code Est Pt Level 4 (84030) Diagnoses Hypercholesterolemia E78.00 Low HDL (under 40) E78.6 Pre-diabetes R73.03 Otitis media H66.90
== END 2023-07-25 15:27 | disposition home or self-care (01) ==
PROVIDERS: PCP Family Medicine; Visit Provider Family Medicine
DX: E78.00 Pure hypercholesterolemia, unspecified (principal); E78.6 Lipoprotein deficiency; R73.03 Prediabetes; H66.90 Otitis media, unspecified, unspecified ear
CPT/HCPCS: 99214

== ENCOUNTER 2023-10-02 07:42 | Outpatient (REF) | payer OTHER, SELFPAY | END 2023-10-02 07:43 | disposition home or self-care (01) | LOC: HO.MAMMO 07:42 | PROVIDERS: PCP Family Medicine; Visit Provider Family Medicine | DX: Z12.31 Encounter for screening mammogram for malignant neoplasm of breast (principal) | CPT/HCPCS: 77063; 77067 ==

== ENCOUNTER → 2023-10-02 08:00 | Outpatient (BNV) | payer OTHER, SELFPAY | PROVIDERS: PCP Family Medicine; Visit Provider Radiology Diagnostic Radiology | DX: Z12.31 Encounter for screening mammogram for malignant neoplasm of breast (principal) | CPT/HCPCS: 77063; 77067 ==

== ENCOUNTER 2023-10-09 08:02 | Outpatient (AMB) | payer OTHER, SELFPAY ==
[2023-10-09 08:18] VITALS: BP 129/66; PULSE 66; BMI 28.9
--- NOTE | 2023-10-09 08:18 | MHC.OFFVIS ---
Intake Vital Signs 10/09/23 08:18 Height 5 ft 1 in Weight 152 lb 12.485 oz BMI 28.9 BP 129/66 Blood Pressure Location Lt brachial Position Sitting Pulse 66 Intake Visit Reasons: Follow up constipation Intake Note: Patient here for 3m f/u constipation. Completed 90d Linzess rx. Reports GERD under control with pepcid. Patient would like to get refills. 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 That was for 1 month. Now I gave her 3 month coupon which I believe is a 90 day supply for 30 dollars so we will send a new prescription for 90 days. After that will have to evaluate where she is with her insurance and her to deductible. She continues to do well on the famotidine at bedtime. Return office visit in 3 months Medications: Refilled linaclotide (Linze ss) 145 mcg PO QAM 90 caps 1RF K59.04 - Chronic i diopathic constipa tion famotidine (Pepcid ) 40 mg PO BEDTIME 30 tabs 6RF K21.9 - Gastro-eso phageal reflux dis ease without esoph agitis TODAY'S VISIT She is suffering bloating and a CIC because she ran out of her Linzess (it was not filled correctly at [facility] and this problem was not resolved - they gave her a 30 day supply but documented 90). We will try a temporary supply of Amitiza and get back to the Linzess. I advise her to call the pharmacy and find out when it can be filled. She continues on her famotidine with good control of her GERD. ROV 4 weeks. [facility] Medical History Breast cancer screening by mammogram Screening for cervical cancer Screening for colon cancer Adult general medical examination Bunion Essential hypertension Pre-diabetes Surgical History History of esophagogastroduodenoscopy (EGD) Hx of tonsillectomy History of colonoscopy with polypectomy Hx of section Family History Mother Diabetes Brother Diabetes Sister Diabetes Social History Housing: Apartment Alcohol intake: never Patient Tobacco Use Status: Never used Tobacco e-Cigarette/Vaping Use: Never Used Second Hand Smoke Exposure: No service: No Current occupational status: employed Current occupational exposures/hazards: No Sexual orientation: Straight/Heterosexual Gender identity: Female Cognitive needs: No Hearing needs: No Vision needs: No Female Reproductive History Menstrual Age of Menarche: 12 Review of Systems Const Denies fatigue, Denies fever(s), Denies night sweats, Denies poor appetite and Denies weight loss ENT Reports Normal hearing present, Denies dental pain, Denies dysphagia, Denies hearing loss, Denies mouth pain, Denies odynophagia, Denies throat swelling, Denies tongue swelling and Reports other (Dentition adequate) Card Reports no additional complaints Resp Reports no additional complaints GI Details: Denies abdominal pain, Denies melena, Reports bloating, Denies hematochezia, Reports constipation, Denies GI cramping, Denies dysphagia, Denies excessive flatus, Denies early satiety, Reports heartburn, Denies diarrhea, Denies nausea, Denies odynophagia, Denies vomiting and Denies hematemesis Skin/Breast Denies pruritus, Denies lesions, Denies rash and Denies jaundice Neuro Reports Normal hearing present and Denies Abnormal speech present Endo Denies fatigue Aller/Immun Denies throat swelling and Denies tongue swelling Physical Exam Vital Signs: Last Vital Signs Pulse 66 10/09/23 08:18 BP 129/66 10/09/23 08:18 BMI result Body Mass Index 28.9 Const General: cooperative, no acute distress, well developed and well groomed Nutritional Appearance: average body habitus and well nourished Orientation/consciousness: oriented to person, oriented to place and oriented to time Limitations: No language barrier HEENT Head: Yes normocephalic and Yes atraumatic Eyes General: appearance normal, both eyes and all related structures Pupils: Equal, round and reactive pupils present Neck Neck: Yes normal visual inspection and Yes no lymphadenopathy Thyroid: Thyroid normal Resp Effort & Inspection: normal respiratory effort and able to speak in complete sentences Auscultation: clear to auscultation bilaterally Cardio Rate: regular rate Rhythm: regular rhythm Heart sounds: Normal, physiologic split S2 sound present Peripheral pulses: radial pulses present and posterior tibial pulses present GI Inspection: No distended, No Abdominal panniculus present and Yes obesity Palpation (GI): Soft to palpation, nontender, no guarding, not rigid and No hepatosplenomegaly present Percussion: Yes normal to percussion Auscultation: normal bowel sounds Rectal Exam - Female: deferred Skin General skin exam: no rashes or lesions noted, turgor normal, skin not dry, no jaundice, No spider nevi and no striae Rashes: no rashes Nails: normal Neuro General: oriented to person, oriented to place and oriented to time Cranial nerves: Yes Equal, round and reactive pupils present and Yes Normal hearing present Speech: No Abnormal speech present Extrem General: Yes normal to inspection, No clubbing, No cyanosis and No edema Psych Appearance: grossly normal and well kempt Mental Status: mental status grossly normal Speech and movement: Normal speech and movement present Affect: normal affect Attitude: cooperative Thought process: Normal thought process present and not confabulating Thought content: Normal thought content present Insight: Fair insight present (Psych) Judgement: Fair judgement present (Psych) Assessment & Plan Assessment & Plan (1) GERD (gastroesophageal reflux disease): Code(s): K21.9 - Gastro-esophageal reflux disease without esophagitis (2) Chronic idiopathic constipation: Code(s): K59.04 - Chronic idiopathic constipation (3) Tubular adenoma of colon: Comment: 2021 scope 3 polyps 1, 10 mm repeat in 3 years Code(s): D12.6 - Benign neoplasm of colon, unspecified Plan She is suffering bloating and a CIC because she ran out of her Linzess (it was not filled correctly at [facility] and this problem was not resolved - they gave her a 30 day supply but documented 90). We will try a temporary supply of Amitiza [facility] I advise her to call the pharmacy and find out when it can be filled. She continues on her famotidine with good control of her GERD. ROV 4 weeks. Medications: New lubiprostone (Amitiza) 24 mcg PO BID 60 caps 3RF 30 days K59.04 - Chronic idiopathic constipation Coding Level of Care Code Est Pt Level 3 (47329) Diagnoses GERD (gastroesophageal reflux disease) K21.9 Chronic idiopathic constipation K59.04 Tubular adenoma of colon D12.6
== END 2023-10-09 08:57 | disposition home or self-care (01) ==
PROVIDERS: PCP Family Medicine; Referring Provider Family Medicine; Visit Provider Nurse Practitioner
DX: K21.9 Gastro-esophageal reflux disease without esophagitis (principal); K59.04 Chronic idiopathic constipation; D12.6 Benign neoplasm of colon, unspecified
CPT/HCPCS: 99213

== ENCOUNTER → 2023-10-09 08:02 | Outpatient (BNVA) | payer OTHER, SELFPAY | PROVIDERS: PCP Family Medicine; Visit Provider Nurse Practitioner | DX: K21.9 Gastro-esophageal reflux disease without esophagitis (principal); K59.04 Chronic idiopathic constipation; D12.6 Benign neoplasm of colon, unspecified; Z76.0 Encounter for issue of repeat prescription; Z79.899 Other long term (current) drug therapy | CPT/HCPCS: 99212 ==

== ENCOUNTER 2023-11-06 07:44 | Outpatient (AMB) | payer OTHER, SELFPAY ==
--- NOTE | 2023-11-06 08:00 | A.OFFVIS_ITS ---
Vital Signs 11/06/23 08:02 Height 5 ft 1 in Weight 149 lb 14.629 oz BMI 28.3 BP 104/57 L Blood Pressure Location Lt brachial Position Sitting Pulse 66 Intake Visit Reasons: 4 week follow up Intake Note: Keli presents in the office as a 4 week follow up. CC: She states that the medication Amitiza is giving her all the same symptoms as the Linzess. 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 Allergies No Known Allergies Allergy (Verified 11/06/23 08:02) HPI HPI 4 week follow up: Details: Assessment & Plan (1) GERD (gastroesophageal reflux disease): Code(s): K21.9 - Gastro-esophageal reflux disease without esophagitis (2) Chronic idiopathic constipation: Code(s): K59.04 - Chronic idiopathic constipation (3) Tubular adenoma of colon: Comment: 2021 scope 3 polyps 1, 10 mm repeat in 3 years Code(s): D12.6 - Benign neoplasm of colon, unspecified Plan She is suffering bloating and a CIC because she ran out of her Linzess (it was not filled correctly at [facility] and this problem was not resolved - they gave her a 30 day supply but documented 90). We will try a temporary supply of Amitiza and get back to the Linzess. I advise her to call the pharmacy and find out when it can be filled. She continues on her famotidine with good control of her GERD. ROV 4 weeks. Medications: New lubiprostone (Amitiza) 24 mcg PO BID 60 caps 3RF 30 days K59.04 - Chronic idiopathic constipation TODAY'S VISIT She did not tolerate the Amitiza r/t stomach upset. She now should be able to get the Linzess so resending it at 145mcg as she does well with this. She feels that if she can get this medication she will be stable. She continues on her famotidine for heartburn with good control. ROV 6 mos. [facility] Medical History Breast cancer screening by mammogram Screening for cervical cancer Screening for colon cancer Adult general medical examination Bunion Essential hypertension Pre-diabetes Surgical History History of esophagogastroduodenoscopy (EGD) Hx of tonsillectomy History of colonoscopy with polypectomy Hx of section Family History Mother Diabetes Brother Diabetes Sister Diabetes Social History Housing: Apartment Alcohol intake: never Patient Tobacco Use Status: Never used Tobacco e-Cigarette/Vaping Use: Never Used Second Hand Smoke Exposure: No service: No Current occupational status: employed Current occupational exposures/hazards: No Sexual orientation: Straight/Heterosexual Gender identity: Female Cognitive needs: No Hearing needs: No Vision needs: No Female Reproductive History Menstrual Age of Menarche: 12 Review of Systems Const Denies fatigue, Denies fever(s), Denies night sweats, Denies poor appetite and Denies weight loss ENT Reports Normal hearing present, Denies dental pain, Denies dysphagia, Denies hearing loss, Denies mouth pain, Denies odynophagia, Denies throat swelling, Denies tongue swelling and Reports other (Dentition adequate) Card Reports no additional complaints Resp Reports no additional complaints GI Details: Denies abdominal pain, Denies melena, Denies bloating, Denies hematochezia, Reports constipation, Denies GI cramping, Denies dysphagia, Denies excessive flatus, Denies early satiety, Reports heartburn, Denies diarrhea, Denies nausea, Denies odynophagia, Denies vomiting and Denies hematemesis Skin/Breast Denies pruritus, Denies lesions, Denies rash and Denies jaundice Neuro Reports Normal hearing present and Denies Abnormal speech present Endo Denies fatigue Aller/Immun Denies throat swelling and Denies tongue swelling Physical Exam Vital Signs: Last Vital Signs Pulse 66 11/06/23 08:02 BP 104/57 L 11/06/23 08:02 BMI result Body Mass Index 28.3 Const General: cooperative, no acute distress, well developed and well groomed Nutritional Appearance: average body habitus and well nourished Orientation/consciousness: oriented to person, oriented to place and oriented to time Limitations: No language barrier HEENT Head: Yes normocephalic and Yes atraumatic Eyes General: appearance normal, both eyes and all related structures Pupils: Equal, round and reactive pupils present Neck Neck: Yes normal visual inspection and Yes no lymphadenopathy Thyroid: Thyroid normal Resp Effort & Inspection: normal respiratory effort and able to speak in complete sentences Auscultation: clear to auscultation bilaterally Cardio Rate: regular rate Rhythm: regular rhythm Heart sounds: Normal, physiologic split S2 sound present Peripheral pulses: radial pulses present and posterior tibial pulses present GI Inspection: No distended and No Abdominal panniculus present Palpation (GI): Soft to palpation, nontender, no guarding, not rigid and No hepatosplenomegaly present Percussion: Yes normal to percussion Auscultation: normal bowel sounds Rectal Exam - Female: deferred Skin General skin exam: no rashes or lesions noted, turgor normal, skin not dry, no jaundice, No spider nevi and no striae Rashes: no rashes Nails: normal Neuro General: oriented to person, oriented to place and oriented to time Cranial nerves: Yes Equal, round and reactive pupils present and Yes Normal hearing present Speech: No Abnormal speech present Extrem General: Yes normal to inspection, No clubbing, No cyanosis and No edema Psych Appearance: grossly normal and well kempt Mental Status: mental status grossly normal Speech and movement: Normal speech and movement present Affect: normal affect Attitude: cooperative Thought process: Normal thought process present and not confabulating Thought content: Normal thought content present Insight: Fair insight present (Psych) Judgement: Fair judgement present (Psych) Assessment & Plan Assessment & Plan (1) Chronic idiopathic constipation: Code(s): K59.04 - Chronic idiopathic constipation Category: Medical (2) GERD (gastroesophageal reflux disease): Code(s): K21.9 - Gastro-esophageal reflux disease without esophagitis Category: Medical Plan She did not tolerate the Amitiza r/t stomach upset. She now should be able to get the Linzess so resending it at 145mcg as she does well with this. She feels that if she can get this medication she will be stable. She continues on her famotidine for heartburn with good control. ROV 6 mos. Medications: New linaclotide (Linzess) Take first thing in the morning with a full glass of water. PT did not tolerate Amitiza 145 mcg PO QAM 90 caps 1RF 90 days K58.1 - Irritable bowel syndrome with constipation Discontinued lubiprostone Discontinued Reason: Doctor's Order 24 mcg PO BID 30 days 60 caps 3RF K59.04 - Chronic idiopathic constipation Coding Level of Care Code Est Pt Level 3 (62651) Diagnoses Chronic idiopathic constipation K59.04 GERD (gastroesophageal reflux disease) K21.9
[2023-11-06 08:02] VITALS: BP 104/57; PULSE 66; BMI 28.3
== END 2023-11-06 08:23 | disposition home or self-care (01) ==
PROVIDERS: PCP Family Medicine; Visit Provider Nurse Practitioner
DX: K59.04 Chronic idiopathic constipation (principal); K21.9 Gastro-esophageal reflux disease without esophagitis
CPT/HCPCS: 99213

== ENCOUNTER → 2023-11-06 07:44 | Outpatient (BNVA) | payer OTHER, SELFPAY | PROVIDERS: PCP Family Medicine; Visit Provider Nurse Practitioner | DX: K59.04 Chronic idiopathic constipation (principal); K21.9 Gastro-esophageal reflux disease without esophagitis; Z86.010 Personal history of colon polyps | CPT/HCPCS: 99212 ==

== ENCOUNTER 2023-12-16 08:02 | Outpatient (REF) | payer OTHER, SELFPAY ==
[2023-12-19 03:02] LABS: HPV mRNA E6/E7 Not Detected (Not Detected)
== END 2023-12-16 08:03 | disposition home or self-care (01) ==
LOC: HO.LNP 08:02
PROVIDERS: PCP Family Medicine; Visit Provider Advanced Practice Midwife
DX: Z01.419 Encounter for gynecological examination (general) (routine) without abnormal findings (principal)
CPT/HCPCS: 87624; 88175; 99396

== ENCOUNTER 2023-12-16 08:02 | Outpatient (AMB) | payer OTHER, SELFPAY ==
[2023-12-16 08:06] VITALS: BP 118/66; BMI 28.9
--- NOTE | 2023-12-16 08:06 | A.OFFVIS_ITS ---
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 She is doing well with no concerns. Attempting to eat a healthy diet with calcium (lactose alternative) and vitamin D and stays active with exercise. Currently sexually active. Denies any vaginal dryness or irritation. STI testing offered; she declines. Last pap smear; 2018. Last mammogram; 2023. Colonoscopy is UTD, every 3 years. Denies any family history of breast, ovarian or colon cancer. PFS Medical History Breast cancer screening by mammogram Screening for cervical cancer Screening for colon cancer Adult general medical examination Bunion Essential hypertension Pre-diabetes Surgical History History of esophagogastroduodenoscopy (EGD) Hx of tonsillectomy History of colonoscopy with polypectomy Hx of section Family History Mother Diabetes Brother Diabetes Sister Diabetes Social History Housing: Apartment Alcohol intake: never Patient Tobacco Use Status: Never used Tobacco e-Cigarette/Vaping Use: Never Used Second Hand Smoke Exposure: No service: No Current occupational status: employed Current occupational exposures/hazards: No Sexual orientation: Straight/Heterosexual Gender identity: Female Cognitive needs: No Hearing needs: No Vision needs: No Female Reproductive History Menstrual Age of Menarche: 12 control method: none Total pregnancies: 7 Full term: 2 Number of Living Children: 2 Date of last pap smear: 08/16/20 History of abnormal pap smear: No History of STI: No Date of Mammogram: 10/02/23 History of abnormal mammogram: No Review of Systems Const All systems reviewed & are unremarkable except as noted in HPI and below Reports as per HPI Eyes Reports no additional complaints ENT Reports no additional complaints Card Reports no additional complaints Resp Reports no additional complaints GI Reports as per HPI and Reports no additional complaints Reports as per HPI Musc Reports no additional complaints Skin/Breast Reports as per HPI Neuro Reports no additional complaints Psych Reports no additional complaints Endo Reports no additional complaints Coy/Lymph Reports no additional complaints Aller/Immun Reports no additional complaints Physical Exam Vital Signs: Last Vital Signs BP 118/66 12/16/23 08:06 BMI result Body Mass Index 28.9 Const General: cooperative, healthy appearing, no acute distress, well developed and alert Orientation/consciousness: patient oriented x3 HEENT Head: Yes normal to inspection Eyes General: appearance normal, both eyes and all related structures Neck Neck: Yes normal visual inspection Thyroid: Thyroid normal Chest Chest palpation & inspection: normal inspection of the chest and other (no puckering, dimpling, peau de orange, retraction, discharge, masses) Breast/axilla inspection: normal inspection of the breasts Breast/axilla palpation: normal palpation of the breasts Resp Effort & Inspection: normal respiratory effort GI Inspection: Yes normal to inspection and Yes scar Palpation (GI): Soft to palpation Rectal Exam - Female: deferred General: Yes bladder normal to palpation External Female Exam: normal external appearance and normal appearance of the urethra Speculum Exam - Vagina: normal appearance of the vagina, normal palpation, normal vaginal discharge and vagina atrophic Speculum Exam - Cervix: normal appearance of the cervix, normal palpation and Other cervical findings present (Bled slightly with Pap) Bimanual exam- vagina & uterus: normal bimanual exam, normal palpation, uterine size normal, bladder normal to palpation, normal palpation and non-tender Bimanual Exam- Adnexa, other: no masses Skin General skin exam: no rashes or lesions noted Rashes: no rashes Neuro General: patient oriented x3 Cognition (Neuro): normal cognition Extrem General: Yes normal to inspection Psych Attitude: cooperative Thought process: Normal thought process present Assessment & Plan Assessment & Plan (1) Encounter for well woman exam with routine gynecological exam: Code(s): Z01.419 - Encounter for gynecological examination (general) (routine) without abnormal findings Category: Medical Plan: Discussed: Current recommendations for pap smears per ASCCP guidelines. Pap obtained today. Breast awareness, periodic self breast exams and yearly mammogram. Maintain a healthy lifestyle, well balanced diet including Calcium 1,200 mg and Vitamin D 600 IU daily, and routine exercise. Contact the office with any postmenopausal bleeding. Patient verbalizes understanding and agrees to the plan of care. She was given opportunity to ask questions and all questions were answered to the best of my ability. RTO in 1 year for annual eligibility and occupancy interviewer exam. This note is constructed using voice recognition software. While every effort has been made to ensure accuracy, dye jig operator errors may have been included. Coding Level of Care Code Est Pt Prev Care 40-64y(35901) Diagnoses Encounter for well woman exam with routine gynecological exam Z01.419
== END 2023-12-16 08:27 | disposition home or self-care (01) ==
PROVIDERS: PCP Family Medicine; Visit Provider Advanced Practice Midwife
DX: Z01.419 Encounter for gynecological examination (general) (routine) without abnormal findings (principal)
CPT/HCPCS: 99396

== ENCOUNTER 2024-01-05 06:47 | Outpatient (REF) | payer OTHER, SELFPAY ==
[2024-01-05 07:39] LABS: Alanine Aminotransferase 18 U/L (0-31); Albumin Level 4.3 g/dL (3.5-5.0); Alkaline Phosphatase 139 U/L (39-117); Anion Gap 11 (12-20); Aspartate Amino Transferase 19 U/L (5-31); Bilirubin Total 0.7 mg/dL (0.0-1.0); Blood Urea Nitrogen 16 mg/dL (9-16); Calcium 9.3 mg/dL (8.4-10.2); Carbon Dioxide 27 mmol/L (22-29); Chloride 109 mmol/L (96-108); Cholesterol 127 mg/dL (<200); Estimated Glomerular Filt Rate > 60; Glucose Fasting 123 mg/dL (60-99); HDL Cholesterol 38 mg/dL (>40); LDL Cholesterol Calculated 68 mg/dL (<100); Potassium 4.8 mmol/L (3.3-5.1); Sodium 142 mmol/L (135-145); Total Protein 7.4 g/dL (6.5-8.0); Triglycerides 109 mg/dL (<150)
[2024-01-05 07:54] LABS: TSH reflex Free T4 2.39 uIU/mL (0.32-4.0)
[2024-01-05 09:01] LABS: Appearance Urine Cloudy; Color Urine Yellow; Glucose Urine UA Negative (Negative); Leukocyte Esterase Urine Small (1+) (Negative); Nitrite Urine Negative (Negative); Specific Gravity - Urine 1.025 (1.005-1.025); UMIC TRIGGER UA YES; Urine Blood Negative (Negative); Urine Ketones Negative (Negative); Urine Protein Negative (Neg-Trace)
[2024-01-05 09:07] LABS: Bacteria Urine 4+ (None Seen); Hyaline Casts Urine 0-2 /LPF (0-2); RBC Urine 0-2 /HPF (0-2); Squamous Epithelial Cell Urine >20 /HPF (0-2)
[2024-01-05 10:07] LABS: Creatinine Urine 152.64 mg/dL; Microalbum/Creatinine Ratio Ur 11.1 ug/mg cr (<30)
== END 2024-01-05 06:48 | disposition home or self-care (01) ==
LOC: HO.LAB 06:47
PROVIDERS: PCP Family Medicine; Visit Provider Family Medicine
DX: Z00.00 Encounter for general adult medical examination without abnormal findings (principal); I10 Essential (primary) hypertension
CPT/HCPCS: 36415; 80053; 80061; 81001; 81003; 82043; 82570; 84443

== ENCOUNTER 2024-01-09 15:35 | Outpatient (AMB) | payer OTHER, SELFPAY ==
--- NOTE | 2024-01-09 15:41 | MHC.PC.OV ---
Vital Signs 01/09/24 15:45 Height 5 ft 1 in Weight 154 lb BMI 29.1 BP 118/86 Blood Pressure Location Lt brachial Position Sitting Respiration 14 Pulse 75 Pulse Source Pulse Oximeter Temp 98 F Temp Source Oral Pulse Oximetry (%) 95 Oxygen Delivery Method Room Air Intake Visit Reasons: CPE with f/u labs and health maint. Intake Note: Physical. Lab results. Allergies No Known Allergies Allergy (Verified 12/16/23 08:08) Tobacco use date assessed: 07/25/23 Dental Screening Dental Screen Date: 01/22/23 HPI HPI Comments History of Present Illness Details This is a 58-year-old female with a past medical history of prediabetes, hypertension, hyperlipidemia, tubular adenoma of the colon, idiopathic constipation and aortic stenosis presenting for a physical exam. She has UTI symptoms since Friday. Endorses dysuria and frequency. She increased her fluid intake which helped minimize dysuria. No fevers, chills, back pain, nausea, vomiting or abdominal pain. No blood in urine visible. HTN-Treated with lisinopril 20 mg. Diastolic blood pressure readings are under 80 contrary to office reading today. Hyperlipidemia is treated with atorvastatin 20 mg. Her LDL cholesterol is under 100. She had a colonoscopy in 2021 at [facility] [place]. She had tubular adenomas. Repeat in 2024 advised. Mammogram and breaster UTD. UTD with eye and dental exams. Asthma-requests albuterol refill. Her hemoglobin A1c is 6.7% today. This is a new diagnosis of type 2 diabetes. She has a strong family history of diabetes. She has tried to lose weight with diet and exercise, but she was unsuccessful. Her brother is on insulin. She is concerned this is going to get worse over time. She endorses itching in her ears for couple of months. Skin feels dry and irritated. ROS: Constitutional: No unexplained weight loss, fever, chills, fatigue or night sweats. Eyes: No vision changes, blurry vision, double vision, eye pain, eye redness, eye discharge. ENT: No hearing loss, sneezing, congestion, runny nose or sore throat. Respiratory: No shortness of breath, cough or sputum production. Cardiovascular: No chest pain, chest pressure or chest discomfort. No palpitations or pedal edema. Gastrointestinal: No anorexia, nausea, vomiting or diarrhea. No abdominal pain or blood in stool. Genitourinary: see HPI Neurologic: No headache, dizziness, syncope, unilateral weakness, ataxia, numbness or tingling in the extremities. Musculoskeletal: No muscle pain, back pain, joint pain or swelling. Hematologic/Lymphatics: No bleeding or bruising. No painful lymph nodes. Skin: see HPI Endocrine: No cold or heat intolerance. No polyuria or polydipsia. Psychiatric: No depression or anxiety. No SI/HI. Physical exam: Constitutional: Alert, in no distress. Head: Normocephalic. Eyes: Pupils are equal, round and reactive to light. Extraocular muscles intact. Ear, Nose and Throat: Ear canals dry, skin desquamation noted bilaterally. TMs normal. Normal nasal mucosa. No nasal discharge. No oral lesions. Neck: Supple, Full range of motion. No lymphadenopathy. No palpable thyroid masses. Respiratory: Clear to auscultation. Cardiovascular: S1 S2 regular. II/ systolic murmur. Gastrointestinal: Abdomen soft, non-tender, non-distended. Normal bowel sounds. No palpable masses. Genitourinary: No costovertebral angle tenderness. Neurologic: No focal neurological deficits. Symmetric patellar reflexes. Moves all extremities spontaneously. Sensation intact bilaterally. Skin: No rashes or lesions. Musculoskeletal: No gross deformities. Normal range of motion. Extremities: Warm and well perfused. No clubbing, cyanosis or edema. Psychiatric: Normal mood and affect [facility] Medical History (Updated 01/09/24 @ 16:44 by SYBIL Berry) Controlled type 2 diabetes mellitus Dermatitis of ear canal Breast cancer screening by mammogram Screening for cervical cancer Screening for colon cancer Adult general medical examination Bunion Essential hypertension Surgical History History of esophagogastroduodenoscopy (EGD) Hx of tonsillectomy History of colonoscopy with polypectomy Hx of section Family History Mother Diabetes Brother Diabetes Sister Diabetes Social History Housing: Apartment Alcohol intake: never Patient Tobacco Use Status: Never used Tobacco e-Cigarette/Vaping Use: Never Used Second Hand Smoke Exposure: No service: No Current occupational status: employed Current occupational exposures/hazards: No Sexual orientation: Straight/Heterosexual Gender identity: Female Cognitive needs: No Hearing needs: No Vision needs: No Female Reproductive History Menstrual Age of Menarche: 12 Questionnaire PHQ-9 Over the last 2 weeks, how often have you been bothered by any of the following problems? 1. Little interest or pleasure in doing things: not at all 2. Feeling down, depressed, or hopeless: not at all 3. Trouble falling or staying asleep, or sleeping too much: not at all 4. Feeling tired or having little energy: not at all 5. Poor appetite or overeating: not at all 6. Feeling bad about yourself - or that you are a failure or have let yourself or your family down: not at all 7. Trouble concentrating on things, such as reading the newspaper or watching television: not at all 8. Moving or speaking so slowly that other people could have noticed. Or the opposite - being so fidgety or restless that you have been moving around a lot more than usual: not at all 9. Thoughts that you would be better off or of hurting yourself in some way: not at all Total score: 0 Depression Screening Interpretation: Negative Depression Screening Done: Yes 10579 - PHQ-9 Billing: Yes Source: Developed by Drs. Jaime Stephens, Halle Guevara, Hola Harmon and colleagues, with an educational socorro from [employer]. Thrive Questionnaire Date Thrive assessed: 01/09/24 I am a: Patient What is your living situation today?: I have a steady place to live Within the past 12 months, did the food you bought not last and you didn't have the money to get more?: Never true Within the past 12 months, did you worry whether your food would run out before you got money to buy more?: Never true Do you have trouble paying for medicines?: No Do you have trouble getting transportation to medical appointments?: No Do you have trouble paying your heating and electricity bill?: No Do you have trouble taking care of your child, family member or friend?: No Do you have trouble with day-to-day activities such as bathing, preparing meals, shopping, managing finances, etc.?: No Are you currently unemployed and looking for a job?: No Are you interested in more education?: No Please select the resources that you would like help with: None Currently or been in a relationship where the following occur: No concerns reported THRIVE Score: 0 AUDIT C Alcohol Use Questionnaire (AUDIT-C) 1. How often do you have a drink containing alcohol?: Monthly or less 2. How many drinks containing alcohol do you have on a typical day when you are drinking?: 1 or 2 3. How often do you have six or more drinks on one occasion?: Never Total Score: 1 GOKUL-7 AMB Questionnaire GOKUL-7 Date GOKUL - 7 assessed: 01/09/24 Feeling nervous, anxious, or on edge: 0 = Not at all Not being able to stop or control worryin = Not at all Worrying too much about different things: 0 = Not at all Trouble relaxin = Not at all Being so restless that it is hard to sit still: 0 = Not at all Becoming easily annoyed or irritable: 0 = Not at all Feeling afraid as if something awful might happen: 0 = Not at all Total GOKUL-7 score (0-4 normal; 5-9 mild; 10-14 moderate; 15-21 severe): 0 Source: Developed by Drs. Jaime Stephens, Halle Guevara, Hola Harmon and colleagues, with an educational socorro from [employer]. GOKUL-7 Assessment Billing GOKUL-7 Assessment Tool: GOKUL-7 Assessment 32616 Physical exam (Primary Care) Vital Signs: Last Vital Signs Temp 98 F 01/09/24 15:45 Pulse 75 01/09/24 15:45 Resp 14 01/09/24 15:45 BP 118/86 01/09/24 15:45 Pulse Ox 95 01/09/24 15:45 Oxygen Delivery Method Room Air 01/09/24 15:45 BMI result Body Mass Index 29.1 Tobacco/Smoking Status: Tobacco use Status Tobacco use date assessed 07/25/23 01/09/24 15:44 Patient Tobacco Use Status Never used Tobacco 01/09/24 15:44 e-Cigarette/Vaping Use Never Used 01/09/24 15:44 PHQ-9: PHQ-9 Score PHQ-9: Total score 0 01/09/24 16:30 Depression Screening Interpretation: Negative Thrive Assessment: Date of Thrive Assessment Date Thrive assessed 01/09/24 01/09/24 15:52 Currently or been in a relationship where the following occur: No concerns reported Results AMB Hemoglobin A1c AMB Hemoglobin A1c 6.7 % Last Edit by Angle Cohen, YOLIE on 01/09/24 16:31 AMB Urinalysis Dipstick UR Leukocytes Large Last Edit by Angle Cohen, YOLIE on 01/09/24 16:33 UR Nitrite Negative Last Edit by Angle Cohen, [employer]ER on 01/09/24 16:33 UR Urobilinogen Normal Last Edit by Angle Cohen, [employer]ER on 01/09/24 16:33 UR Protein Negative Last Edit by Angle Cohen, [employer]CEL[employer] E[employer]EL SPRAYER on 01/09/24 16:33 UR Ph 6.0 Last Edit by Angle Cohen, [employer]EL[employer] E[employer]EL [employer]ER on 01/09/24 16:33 UR Blood Negative Last Edit by Angle Cohen, [employer]EL [employer]ER on 01/09/24 16:33 UR Specific [place] 1.015 Last Edit by Angle Cohen, YOLIE on 01/09/24 16:33 UR Ketone Negative Last Edit by Angle Cohen, YOLIE on 01/09/24 16:33 UR Bilirubin Negative Last Edit by Angle Cohen, [employer]ER on 01/09/24 16:33 UR Glucose Negative Last Edit by Angle Cohen, YOLIE on 01/09/24 16:33 Results Reviewed Results Reviewed: Laboratory Last Values Hgb A1c (Clinic) 6.7 % (4.0-6.0) H 01/09/24 16:24 Urine pH (Clinic) 6.0 01/09/24 16:24 Specific [place] (Clinic) 1.015 01/09/24 16:24 Ur Protein (Clinic) Negative 01/09/24 16:24 Ur Ketones (Clinic) Negative 01/09/24 16:24 Urine Blood (Clinic) Negative 01/09/24 16:24 Urine Nitrite Negative 01/09/24 16:24 Urine Bilirubin (Clinic) Negative 01/09/24 16:24 Urobilinogen (Clinic) Normal 01/09/24 16:24 Leukocyte Esterase (Clinic) Large 01/09/24 16:24 Urine Glucose (Clinic) Negative 01/09/24 16:24 Assessment and Plan Assessment & Plan (1) Routine physical examination: Code(s): Z00.00 - Encounter for general adult medical examination without abnormal findings Plan: Patient is seen today for a routine physical. As part of this visit we reviewed the following issues, which are considered and essential part of preventative health in this age group: - Breast Cancer screening - Annual Environmental Services Attendant exam - Screening for colon cancer - Blood pressure screening - Cholesterol screening - Osteoporosis prevention including calcium/vitamin D intake, weight bearing exercise & smoking cessation - Nutritional and exercise counseling - Counseling of injury prevention including fire prevention, smoke alarms and seat belt usage - Screening for depression - Recommendations about immunizations - pt defers today - Recommendation of an eye exam - Screening for substance abuse (2) Essential hypertension: Code(s): I10 - Essential (primary) hypertension Plan: Controlled per home readings. Continue current regimen. (3) Tubular adenoma of colon: Comment: 2021 scope 3 polyps 1, 10 mm repeat in 3 years Code(s): D12.6 - Benign neoplasm of colon, unspecified (4) Asthma: Code(s): J45.909 - Unspecified asthma, uncomplicated Qualifiers: Asthma complication type: uncomplicated Asthma persistence: intermittent Asthma severity: mild Qualified Code(s): J45.20 - Mild intermittent asthma, uncomplicated Plan: Prescribed albuterol 2 puffs every 4 hours as needed. (5) Aortic stenosis: Code(s): I35.0 - Nonrheumatic aortic (valve) stenosis Qualifiers: Cardiac valve disease etiology: nonrheumatic Qualified Code(s): I35.0 - Nonrheumatic aortic (valve) stenosis Plan: No symptoms. Repeat echo for surveillance in 2024. (6) Hypercholesterolemia: Code(s): E78.00 - Pure hypercholesterolemia, unspecified Plan: LDL at goal. Continue lifestyle modifications for HDL management. Continue statin. (7) UTI (urinary tract infection): Code(s): N39.0 - Urinary tract infection, site not specified Qualifiers: Hematuria presence: without hematuria Urinary tract infection type: acute cystitis Qualified Code(s): N30.00 - Acute cystitis without hematuria Plan: Urine culture ordered. Treat with nitrofurantoin 1 pill twice daily for 7 days. Warning signs warranting ER evaluation reviewed. Take full course of antibiotics. To use probiotics and eat yogurt with medication. Push fluids at home. (8) Dermatitis of ear canal: Code(s): H60.549 - Acute eczematoid otitis externa, unspecified ear Qualifiers: Laterality: bilateral Qualified Code(s): H60.543 - Acute eczematoid otitis externa, bilateral Plan: Apply fluocinolone drops as directed for 7 days. Call if symptoms do not resolve. (9) Controlled type 2 diabetes mellitus: Code(s): E11.9 - Type 2 diabetes mellitus without complications Qualifiers: Diabetes mellitus complication status: without complication Diabetes mellitus remote computer terminal operator insulin use: without remote computer terminal operator use Qualified Code(s): E11.9 - Type 2 diabetes mellitus without complications Plan: New diagnosis with hemoglobin A1c 6.7%. Educated patient about risks of diabetes. Lifestyle modifications reviewed. She has a strong family history of diabetes. Her brother is on insulin injections. Discussed treatment with metformin versus GLP 1. She wants to lose weight and prefers GLP 1 for cardiovascular benefit. We will send Hern[employer]andi to see if this is covered by the pharmacy. Patient says she has a glucometer to check sugars. Target fasting readings 80-130. The patient denies contraindications to GLP-1 receptor agonist. We reviewed the FDA preliminary evaluation that has not found evidence that these medications cause suicidal thoughts or actions, but the investigation is ongoing. If the patient develops these symptoms they will stop taking the medication immediately and contact the office. We reviewed more common side effects such as bloating, constipation, nausea and vomiting. We reviewed the administration and dosing schedule. The patient is instructed to continue lifestyle modifications and efforts at weight loss. We discussed how weight loss can cause physiologic changes in the body and that some patients may experience hair thinning/hair loss. Plan Follow up in 3 months for diabetes. Orders: Orders AMB Urinalysis Dipstick Today Z13.9 - Encounter for screening, unspecified AMB Hemoglobin A1c Today Z13.9 - Encounter for screening, unspecified Urine Culture Today N39.0 - Urinary tract infection, site not specified Medications: New fluocinolone acetonide oil 0.01% 5 drps otic (ears) BID 7 days 20 mL 0RF nitrofurantoin macrocrystal must administer with a meal/food 100 mg PO BID 7 days 14 caps 0RF albuterol sulfate 90 mcg/actuation 2 inhalations inhalation Q4H PRN 8.5 grams 3RF shortness of breath or wheezing semaglutide (Ozempic) for 4 weeks 0.25 mg (0.368 mL) subcut QWEEK 3 mL 0RF Coding Level of Care Code Est Pt Prev Care 40-64y(86551) Diagnoses Routine physical examination Z00.00 Essential hypertension I10 Tubular adenoma of colon D12.6 Mild intermittent asthma without complication J45.20 Asthma complication type: uncomplicated Asthma persistence: intermittent Asthma severity: mild Nonrheumatic aortic valve stenosis I35.0 Cardiac valve disease etiology: nonrheumatic Hypercholesterolemia E78.00 Acute cystitis without hematuria N30.00 Hematuria presence: without hematuria Urinary tract infection type: acute cystitis Dermatitis of both ear canals H60.543 Laterality: bilateral Controlled type 2 diabetes mellitus without complication, without long-term current use of insulin E11.9 Diabetes mellitus complication status: without complication Diabetes mellitus prison insulin use: without remote computer terminal operator use Additional Codes GOKUL-7 Assessment Billing - GOKUL-7 Assessment Tool: GOKUL-7 Assessment 69246 ([id number])
[2024-01-09 15:45] VITALS: BP 118/86; PULSE 75; RESP 14; TEMP 36.6; O2SAT 95; BMI 29.1
== END 2024-01-09 16:42 | disposition home or self-care (01) ==
PROVIDERS: PCP Physician Assistant Medical; Visit Provider Physician Assistant Medical
DX: Z00.00 Encounter for general adult medical examination without abnormal findings (principal); E11.9 Type 2 diabetes mellitus without complications; I10 Essential (primary) hypertension; N30.00 Acute cystitis without hematuria; E78.00 Pure hypercholesterolemia, unspecified; D12.6 Benign neoplasm of colon, unspecified; J45.20 Mild intermittent asthma, uncomplicated; I35.0 Nonrheumatic aortic (valve) stenosis; H60.543 Acute eczematoid otitis externa, bilateral
CPT/HCPCS: 81002; 83036; 99396

== ENCOUNTER 2024-01-09 17:38 | Outpatient (REF) | payer OTHER, SELFPAY | END 2024-01-09 17:39 | disposition home or self-care (01) | LOC: HO.LNP 17:38 | PROVIDERS: Visit Provider Physician Assistant Medical | DX: N39.0 Urinary tract infection, site not specified (principal) | CPT/HCPCS: 87086; 87088; 87186 ==

== ENCOUNTER 2024-04-15 08:35 | Outpatient (AMB) | payer OTHER, SELFPAY ==
--- NOTE | 2024-04-15 08:47 | A.OFFPC_ITS ---
Vital Signs 04/15/24 08:48 Height 5 ft 1 in Weight 155 lb BMI 29.3 BP 110/66 Blood Pressure Location Rt brachial Position Sitting Pulse 73 Pulse Source Pulse Oximeter Pulse Oximetry (%) 98 Oxygen Delivery Method Room Air Intake Visit Reasons: diabetes Intake Note: Diabetes follow up Supply Person Required: No Allergies No Known Allergies Allergy (Verified 04/15/24 08:47) Tobacco use date assessed: 07/25/23 Dental Screening Dental Screen Date: 01/22/23 HPI HPI Comments History of Present Illness Details This is a 58-year-old female with a past medical history of Type II DM, hypertension, hyperlipidemia, tubular adenoma of the colon, asthma, idiopathic constipation and aortic stenosis presenting for a physical exam. HTN-Treated with lisinopril 20 mg. Hyperlipidemia is treated with atorvastatin 20 mg. Her LDL cholesterol is under 100. She had a colonoscopy in 2021 at [facility]. She had tubular adenomas. Repeat in 2024 advised. Aortic stenosis-no dizziness, chest pain, leg swelling or syncope. She is due for an echocardiogram in 2024. Asthma- Seen by pulmonology in the past. She has been using her inhaler a couple times a day the last few days for wheezing and dry cough. It alleviates symptoms temporarily. Patient says during Fall she has to take Albuterol every day for symptoms due to allergies. Nonsmoker. Taking Zyrtec 10 mg daily. She was diagnosed with type 2 diabetes in 01/10/2024 with a hemoglobin A1c of 6.7%. She started Ozempic 0.25 mg once weekly. Denies side effects. She would like to increase the dose to help with weight loss. Her hemoglobin A1c today is 6.3%. She has a strong family history of diabetes. She has chronic dermatitis in her ears which responded to the fluocinolone acetonide oil prescribed in December, but symptoms returned. ROS: Constitutional: No unexplained weight loss, fever, chills, fatigue or night sweats. Eyes: No vision changes, blurry vision, double vision, eye pain, eye redness, eye discharge. ENT: No hearing loss, sneezing, congestion, runny nose or sore throat. Respiratory: No hemoptysis or sputum production. See HPI Cardiovascular: No chest pain, chest pressure or chest discomfort. No palpitations or pedal edema. Gastrointestinal: No anorexia, nausea, vomiting or diarrhea. No abdominal pain or blood in stool. Skin: see HPI Endocrine: No cold or heat intolerance. No polyuria or polydipsia. Physical exam: Constitutional: Alert, in no distress. Eyes: Pupils are equal, round and reactive to light. Extraocular muscles intact. Ear, Nose and Throat: Ear canals dry, skin desquamation noted bilaterally. TMs normal. Normal nasal mucosa. No nasal discharge. No oral lesions. Neck: Supple, Full range of motion. No lymphadenopathy. No palpable thyroid masses. Respiratory: Scattered expiratory wheezes in the bilateral posterior lung mixon. No crackles or rales. Normal respiratory effort. Speaking full sentences. No retractions. Cardiovascular: S1 S2 regular. II/ systolic murmur. Extremities: Warm and well perfused. No clubbing, cyanosis or edema. Psychiatric: Normal mood and affect [facility] Medical History (Updated 04/15/24 @ 09:42 by SYBIL Berry) Controlled type 2 diabetes mellitus Dermatitis of ear canal Breast cancer screening by mammogram Screening for cervical cancer Screening for colon cancer Adult general medical examination Bunion Essential hypertension Surgical History History of esophagogastroduodenoscopy (EGD) Hx of tonsillectomy History of colonoscopy with polypectomy Hx of section Family History Mother Diabetes Brother Diabetes Sister Diabetes Social History Housing: Apartment Alcohol intake: never Patient Tobacco Use Status: Never used Tobacco e-Cigarette/Vaping Use: Never Used Second Hand Smoke Exposure: No service: No Current occupational status: employed Current occupational exposures/hazards: No Sexual orientation: Straight/Heterosexual Gender identity: Female Cognitive needs: No Hearing needs: No Vision needs: No Female Reproductive History Menstrual Age of Menarche: 12 Questionnaire PHQ-9 Over the last 2 weeks, how often have you been bothered by any of the following problems? 1. Little interest or pleasure in doing things: not at all 2. Feeling down, depressed, or hopeless: not at all 3. Trouble falling or staying asleep, or sleeping too much: not at all 4. Feeling tired or having little energy: not at all 5. Poor appetite or overeating: not at all 6. Feeling bad about yourself - or that you are a failure or have let yourself or your family down: not at all 7. Trouble concentrating on things, such as reading the newspaper or watching television: not at all 8. Moving or speaking so slowly that other people could have noticed. Or the opposite - being so fidgety or restless that you have been moving around a lot more than usual: not at all 9. Thoughts that you would be better off or of hurting yourself in some way: not at all Total score: 0 Source: Developed by Drs. Jaime Stephens, Halle Guevara, Hola Harmon and colleagues, with an educational socorro from [employer]. Thrive Questionnaire Date Thrive assessed: 04/12/24 I am a: Patient What is your living situation today?: I have a steady place to live Within the past 12 months, did the food you bought not last and you didn't have the money to get more?: I choose not to answer this question Within the past 12 months, did you worry whether your food would run out before you got money to buy more?: I choose not to answer this question Do you have trouble paying for medicines?: I choose not to answer this question Do you have trouble getting transportation to medical appointments?: No Do you have trouble paying your heating and electricity bill?: No Do you have trouble taking care of your child, family member or friend?: No Do you have trouble with day-to-day activities such as bathing, preparing meals, shopping, managing finances, etc.?: No Are you currently unemployed and looking for a job?: No Are you interested in more education?: No Please select the resources that you would like help with: None Currently or been in a relationship where the following occur: I choose not to answer THRIVE Score: 0 AUDIT C Alcohol Use Questionnaire (AUDIT-C) 1. How often do you have a drink containing alcohol?: Never 3. How often do you have six or more drinks on one occasion?: Never Total Score: 0 GOKUL-7 AMB Questionnaire GOKUL-7 Date GOKUL - 7 assessed: 01/09/24 Feeling nervous, anxious, or on edge: 0 = Not at all Not being able to stop or control worryin = Not at all Worrying too much about different things: 0 = Not at all Trouble relaxin = Not at all Being so restless that it is hard to sit still: 0 = Not at all Becoming easily annoyed or irritable: 0 = Not at all Feeling afraid as if something awful might happen: 0 = Not at all Total GOKUL-7 score (0-4 normal; 5-9 mild; 10-14 moderate; 15-21 severe): 0 Source: Developed by Drs. Jaime Stephens, Halle Guevara, Hola Harmon and colleagues, with an educational socorro from [employer]. Physical exam (Primary Care) Vital Signs: Last Vital Signs Pulse 73 04/15/24 08:48 BP 110/66 04/15/24 08:48 Pulse Ox 98 04/15/24 08:48 Oxygen Delivery Method Room Air 04/15/24 08:48 BMI result Body Mass Index 29.3 Tobacco/Smoking Status: Tobacco use Status Tobacco use date assessed 07/25/23 04/15/24 08:52 Patient Tobacco Use Status Never used Tobacco 04/15/24 08:52 e-Cigarette/Vaping Use Never Used 04/15/24 08:52 PHQ-9: PHQ-9 Score PHQ-9: Total score 0 04/15/24 09:13 Thrive Assessment: Date of Thrive Assessment Date Thrive assessed 04/12/24 04/15/24 08:52 Currently or been in a relationship where the following occur: I choose not to answer Results AMB Hemoglobin A1c AMB Hemoglobin A1c 6.3 % Last Edit by Angle Cohen CMA on 04/15/24 09:19 Coding Level of Care Code Est Pt Level 4 (14684) Complex EM visit Add On G2211 Diagnoses Mild intermittent asthma with acute exacerbation J45.21 Asthma severity: mild Asthma persistence: intermittent Asthma complication type: with acute exacerbation Controlled type 2 diabetes mellitus without complication, without long-term current use of insulin E11.9 Diabetes mellitus group home insulin use: without marine oil terminal superintendent use Diabetes mellitus complication status: without complication Dermatitis of both ear canals H60.543 Laterality: bilateral Hypercholesterolemia E78.00 Nonrheumatic aortic valve stenosis I35.0 Cardiac valve disease etiology: nonrheumatic Assessment & Plan Assessment & Plan (1) Asthma: Code(s): J45.909 - Unspecified asthma, uncomplicated Category: Medical Qualifiers: Asthma severity: mild Asthma persistence: intermittent Asthma complication type: with acute exacerbation Qualified Code(s): J45.21 - Mild intermittent asthma with (acute) exacerbation Plan: Allergy induced with mild exacerbation. Continue cetirizine 10 mg daily. Continue albuterol 2 puffs every 4 hours as needed for cough, wheezing or shortness of breath. Tapering course of prednisone prescribed. Administration and side effects reviewed with the patient. Start QVAR 80 mcg 1 puff twice daily. Gargle and rinse mouth after use. Side effects reviewed. Warning signs warranting ED evaluation reviewed with the patient. She was also instructed to call if she develops any signs/symptoms of infection (2) Controlled type 2 diabetes mellitus: Code(s): E11.9 - Type 2 diabetes mellitus without complications Category: Medical Qualifiers: Diabetes mellitus group home insulin use: without marine oil terminal superintendent use Diabetes mellitus complication status: without complication Qualified Code(s): E11.9 - Type 2 diabetes mellitus without complications Plan: Increase Ozempic to 0.5 mg weekly for weight loss. Diabetes is controlled. Lifestyle modifications reviewed. (3) Dermatitis of ear canal: Code(s): H60.549 - Acute eczematoid otitis externa, unspecified ear Category: Medical Qualifiers: Laterality: bilateral Qualified Code(s): H60.543 - Acute eczematoid otitis externa, bilateral Plan: Refer to dermatology. Refilled topical fluocinolone. She will not need to use this now since she will be on prednisone. (4) Hypercholesterolemia: Code(s): E78.00 - Pure hypercholesterolemia, unspecified Category: Medical Plan: Continue atorvastatin 20 mg daily. (5) Aortic stenosis: Code(s): I35.0 - Nonrheumatic aortic (valve) stenosis Category: Medical Qualifiers: Cardiac valve disease etiology: nonrheumatic Qualified Code(s): I35.0 - Nonrheumatic aortic (valve) stenosis Plan: Echocardiogram due in 2024. Plan Follow up in 4-6 weeks for recheck of asthma and Ozempic med check. Orders: Orders AMB Hemoglobin A1c Today E11.9 - Type 2 diabetes mellitus without complications PFT pulmonary function test Today J45.20 - Mild intermittent asthma, uncomplicated Referrals Dermatology Referral H60.543 - Acute eczematoid otitis externa, bilateral Medications: New prednisone orally daily; Take 3 tabs po qam x 3 days, then take 2 tabs po qam x 3 days, then take 1 tab po qam x 3 days 18 tabs 0RF beclomethasone dipropionate 80 mcg/actuation (Qvar RediHaler) Gargle, brush teeth and rinse mouth after every use. 1 inh inhalation Q12H 10.6 grams 3RF semaglutide (Ozempic) 0.5 mg (0.736 mL) subcut QWEEK 3 mL 0RF Changed From atorvastatin 20 mg PO BEDTIME 30 days 30 tabs 2RF To atorvastatin 20 mg PO BEDTIME 90 days 90 tabs 3RF Refilled lisinopril 20 mg PO DAILY 90 days 90 tabs 3RF fluocinolone acetonide oil 0.01% 5 drps otic (ears) BID 7 days 20 mL 0RF Discontinued semaglutide (Ozempic) for 4 weeks Discontinued Reason: Doctor's Order 0.25 mg (0.368 mL) subcut QWEEK 3 mL 0RF
[2024-04-15 08:48] VITALS: BP 110/66; PULSE 73; O2SAT 98; BMI 29.3
== END 2024-04-15 09:33 | disposition home or self-care (01) ==
PROVIDERS: PCP Physician Assistant Medical; Visit Provider Physician Assistant Medical
DX: J45.21 Mild intermittent asthma with (acute) exacerbation (principal); E11.9 Type 2 diabetes mellitus without complications; H60.543 Acute eczematoid otitis externa, bilateral; E78.00 Pure hypercholesterolemia, unspecified; I35.0 Nonrheumatic aortic (valve) stenosis

== ENCOUNTER → 2024-04-15 08:35 | Outpatient (BNVA) | payer OTHER, SELFPAY | PROVIDERS: PCP Physician Assistant Medical; Visit Provider Physician Assistant Medical | DX: J45.21 Mild intermittent asthma with (acute) exacerbation (principal); E11.9 Type 2 diabetes mellitus without complications; H60.543 Acute eczematoid otitis externa, bilateral; E78.00 Pure hypercholesterolemia, unspecified; I35.0 Nonrheumatic aortic (valve) stenosis; Z79.85 Long-term (current) use of injectable non-insulin antidiabetic drugs; Z79.899 Other long term (current) drug therapy | CPT/HCPCS: 83036; 96127; 99212 ==

== ENCOUNTER 2024-05-07 09:01 | Outpatient (AMB) | payer OTHER, SELFPAY ==
[2024-05-07 09:19] VITALS: BP 132/66; PULSE 66; BMI 28.9
--- NOTE | 2024-05-07 09:19 | MHC.OFFVIS ---
Vital Signs 05/07/24 09:19 Height 5 ft 1 in Weight 153 lb 0.013 oz BMI 28.9 BP 132/66 Blood Pressure Location Rt brachial Position Sitting Pulse 66 Intake Visit Reasons: 6 months follow up [facility] Intake Note: Michaela presents to in office 6 months follow up of [facility]. CC: Patient reports that she ran out of medication because the coupon she used for the medication lasted for 3 months only. She c/o constipation and an upset stomach. Lap Maker Required: No Accompanied by: Self / Same As Patient Allergies milk Allergy (Verified 08/13/24 13:46) Unknown HPI HPI 6 months follow up [facility]: Details: Assessment & Plan (1) Chronic idiopathic constipation: Code(s): K59.04 - Chronic idiopathic constipation Category: Medical (2) GERD (gastroesophageal reflux disease): Code(s): K21.9 - Gastro-esophageal reflux disease without esophagitis Category: Medical Plan She did not tolerate the Amitiza r/t stomach upset. She now should be able to get the Linzess so resending it at 145mcg as she does well with this. She feels that if she can get this medication she will be stable. She continues on her famotidine for heartburn with good control. ROV 6 mos. Medications: New linaclotide (Linzess) Take first thing in the morning with a full glass of water. PT did not tolerate Amitiza 145 mcg PO QAM 90 caps 1RF 90 days K58.1 - Irritable bowel syndrome with constipation Discontinued lubiprostone Discontinued Reason: Doctor's Order 24 mcg PO BID 30 days 60 caps 3RF K59.04 - Chronic idiopathic constipation TODAY'S VISIT She also did not do well with the Linzess. Because she will be starting on Ozempic and this will cause constipation potentially I will give her lactulose to try for this. Return office visit in 6-8 weeks [facility] Medical History Diarrhea Right-sided back pain Acute right flank pain Otitis media Muscle strain Neck pain Back pain Murmur Right otitis media Encounter for well woman exam with routine gynecological exam Controlled type 2 diabetes mellitus Dermatitis of ear canal Breast cancer screening by mammogram Screening for cervical cancer Screening for colon cancer Adult general medical examination Bunion Essential hypertension Surgical History History of esophagogastroduodenoscopy (EGD) Hx of tonsillectomy History of colonoscopy with polypectomy Hx of section Family History Mother Diabetes Brother Diabetes Sister Diabetes Social History Housing: Apartment Alcohol intake: never Patient Tobacco Use Status: Never used Tobacco e-Cigarette/Vaping Use: Never Used Second Hand Smoke Exposure: No service: No Current occupational status: employed Current occupational exposures/hazards: No Sexual orientation: Straight/Heterosexual Gender identity: Female Cognitive needs: No Hearing needs: No Vision needs: No Female Reproductive History Menstrual Age of Menarche: 12 Review of Systems Const Denies fatigue, Denies fever(s), Denies night sweats, Denies poor appetite and Denies weight loss ENT Reports Normal hearing present, Denies dental pain, Denies dysphagia, Denies hearing loss, Denies mouth pain, Denies odynophagia, Denies throat swelling, Denies tongue swelling and Reports other (Dentition adequate) Card Reports no additional complaints Resp Reports no additional complaints GI Details: Denies abdominal pain, Denies melena, Denies bloating, Denies hematochezia, Reports constipation, Denies GI cramping, Denies dysphagia, Denies excessive flatus, Denies early satiety, Reports heartburn, Denies diarrhea, Denies nausea, Denies odynophagia, Denies vomiting and Denies hematemesis Skin/Breast Denies pruritus, Denies lesions, Denies rash and Denies jaundice Neuro Reports Normal hearing present and Denies Abnormal speech present Endo Denies fatigue Aller/Immun Denies throat swelling and Denies tongue swelling Physical Exam Vital Signs: Last Vital Signs Pulse 66 05/07/24 09:19 BP 132/66 05/07/24 09:19 BMI result Body Mass Index 28.9 Const General: cooperative, no acute distress, well developed and well groomed Nutritional Appearance: well nourished and overweight Orientation/consciousness: oriented to person, oriented to place and oriented to time Limitations: No language barrier HEENT Head: Yes normocephalic and Yes atraumatic Eyes General: appearance normal, both eyes and all related structures Pupils: Equal, round and reactive pupils present Neck Neck: Yes normal visual inspection and Yes no lymphadenopathy Thyroid: Thyroid normal Resp Effort & Inspection: normal respiratory effort and able to speak in complete sentences Auscultation: clear to auscultation bilaterally Cardio Rate: regular rate Rhythm: regular rhythm Heart sounds: Normal, physiologic split S2 sound present Peripheral pulses: radial pulses present and posterior tibial pulses present GI Inspection: No distended, No Abdominal panniculus present and Yes obesity Palpation (GI): Soft to palpation, nontender, no guarding, not rigid and No hepatosplenomegaly present Percussion: Yes normal to percussion Auscultation: normal bowel sounds Rectal Exam - Female: deferred Skin General skin exam: no rashes or lesions noted, turgor normal, skin not dry, no jaundice, No spider nevi and no striae Rashes: no rashes Nails: normal Neuro General: oriented to person, oriented to place and oriented to time Cranial nerves: Yes Equal, round and reactive pupils present and Yes Normal hearing present Speech: No Abnormal speech present Extrem General: Yes normal to inspection, No clubbing, No cyanosis and No edema Psych Appearance: grossly normal and well kempt Mental Status: mental status grossly normal Speech and movement: Normal speech and movement present Affect: normal affect Attitude: cooperative Thought process: Normal thought process present and not confabulating Thought content: Normal thought content present Insight: Fair insight present (Psych) Judgement: Fair judgement present (Psych) Results Reviewed Results Reviewed: Laboratory Tests 06/14/24 04:29 Estimated GFR > 60 Total Bilirubin 0.8 AST 29 ALT 29 Alkaline Phosphatase 125 H Assessment & Plan Assessment & Plan (1) GERD (gastroesophageal reflux disease): Code(s): K21.9 - Gastro-esophageal reflux disease without esophagitis Category: Medical (2) Tubular adenoma of colon: Comment: 2021 scope 3 polyps 1, 10 mm repeat in 3 years Code(s): D12.6 - Benign neoplasm of colon, unspecified Category: Medical (3) Chronic idiopathic constipation: Code(s): K59.04 - Chronic idiopathic constipation Category: Medical (4) Pre-op examination: Code(s): Z01.818 - Encounter for other preprocedural examination Category: Medical Plan She also did not do well with the Linzess. Because she will be starting on Ozempic and this will cause constipation potentially I will give her lactulose to try for this. She is agreeable to scheduling of colonoscopy for screening. She has aortic stenosis but this is well controlled and she denies any respiratory problems. There are no prior problems with anesthesia or sedation. There are no infectious disease problems. She had a rather large polyp removed in 2021 calling for a 3 year repeat. Return office visit in 6-8 weeks Orders: Orders Colonoscopy - GI Use Only 05/07/24 D12.6 - Benign neoplasm of colon, unspecified Medications: New lactulose 20 grams (30 mL) PO BEDTIME 237 mL 3RF K59.04 - Chronic idiopathic constipation peg 3350-electrolytes 236-22.74-6.74 -5.86 gram (Golytely) until fecal effluent is clear; do not exceed a total volume of 2,000 mL 240 mL PO Q10M 4,000 mL 0RF 1 day Z12.11 - Encounter for screening for malignant neoplasm of colon bisacodyl (Dulcolax (bisacodyl)) 10 mg (2 x 5 mg) PO BEDTIME 4 tabs 0RF 2 days Coding Level of Care Code Est Pt Level 4 (96245) Diagnoses GERD (gastroesophageal reflux disease) K21.9 Tubular adenoma of colon D12.6 Chronic idiopathic constipation K59.04 Pre-op examination Z01.818
== END 2024-05-07 10:02 | disposition home or self-care (01) ==
PROVIDERS: PCP Family Medicine; Visit Provider Nurse Practitioner
DX: K21.9 Gastro-esophageal reflux disease without esophagitis (principal); D12.6 Benign neoplasm of colon, unspecified; K59.04 Chronic idiopathic constipation; Z01.818 Encounter for other preprocedural examination
CPT/HCPCS: 99499

== ENCOUNTER → 2024-05-07 09:01 | Outpatient (BNVA) | payer OTHER, SELFPAY | PROVIDERS: PCP Family Medicine; Visit Provider Nurse Practitioner ==

== ENCOUNTER 2024-05-22 13:04 | Emergency (ER) | payer OTHER, SELFPAY ==
--- NOTE | ~2024-05-22 | XR_ITS ---
EXAMINATION: XR CHEST CLINICAL INFORMATION: cough COMPARISON: 05/16/2017 TECHNIQUE: 2 views of the chest were obtained. FINDINGS: No focal pneumonia. Normal lung volumes. Minor chronic bronchial wall thickening. Stable heart and mediastinum. No edema. Normal gas pattern without free air or obstruction. No acute osseous finding. XR/XR chest 2V IMPRESSION: No acute cardiopulmonary process. Mild chronic bronchial wall thickening. Electronically signed by: Zoran Frank MD 05/22/2024 02:09 PM EST
[2024-05-22 13:21] VITALS: BP 165/68; PULSE 78; RESP 20; TEMP 36.4; O2SAT 95; BMI 29.3
--- NOTE | 2024-05-22 13:21 | ED.GENADULT ---
HPI - General Adult General Chief complaint: Upper Respiratory Symptoms Stated complaint: wheezing, headache with cough Time Seen by Provider: 05/22/24 14:03 Source: patient Mode of arrival: ambulatory Limitations: no limitations History of Present Illness HPI narrative: Patient is a 58-year-old female who presents emergency department for evaluation. She reports a history of mild intermittent asthma, has been using her albuterol inhaler however just about daily with only minimal improvement, has a dry nonproductive cough, wheezing, shortness of breath, and experiences a mild frontal head pressure during episodes of extensive coughing. She denies any vision changes, dizziness, lightheadedness, neck pain or neck stiffness, fevers or chills. No additional URI symptoms; rhinorrhea, nasal congestion. Denies any known sick contacts. Related Data Previous Rx's ?Medication ?Instructions ?Recorded ibuprofen 600 mg tablet 600 mg PO Q8H PRN pain 14 days #42 12/28/21 tabs cetirizine 10 mg tablet 10 mg PO DAILY 90 days #90 tabs 07/25/23 linaclotide 145 mcg capsule 145 mcg PO QAM 90 days #90 caps 11/06/23 (Linzess) albuterol sulfate 90 mcg/actuation 2 inh inhalation Q4H PRN shortness 01/09/24 aerosol inhaler of breath or wheezing #8.5 grams atorvastatin 20 mg tablet 20 mg PO BEDTIME 90 days #90 tabs 04/15/24 beclomethasone dipropionate 80 1 inh inhalation Q12H #10.6 grams 04/15/24 mcg/actuation HFA breath activated aerosol (Qvar RediHaler) fluocinolone acetonide oil 0.01 % 5 drp otic (ears) BID 7 days #20 mL 04/15/24 ear drops lisinopril 20 mg tablet 20 mg PO DAILY 90 days #90 tabs 04/15/24 bisacodyl 5 mg tablet,delayed 10 mg (2 x 5 mg) PO BEDTIME 2 days 05/07/24 release (Dulcolax (bisacodyl)) #4 tabs lactulose 10 gram/15 mL oral 20 g (30 mL) PO BEDTIME #237 mL 05/07/24 solution peg 3350-electrolytes 236 240 ml PO Q10M 1 day #4,000 mL 05/07/24 gram-22.74 gram-6.74 gram-5.86 gram solution (Golytely) famotidine 40 mg tablet 40 mg PO BEDTIME #90 tabs 05/13/24 semaglutide 0.25 mg or 0.5 mg (2 0.5 mg (0.736 mL) subcut QWEEK #3 05/13/24 mg/3 mL) subcutaneous pen injector mL (Ozempic) azithromycin 250 mg tablet See Rx Instructions PO .COMPLEX #6 05/22/24 tabs benzonatate 200 mg capsule 200 mg PO BID PRN cough #20 caps 05/22/24 prednisone 20 mg tablet 40 mg (2 x 20 mg) PO DAILY #10 tabs 05/22/24 Allergies Allergy/AdvReac Type Severity Reaction Status Date / Time No Known Allergies Allergy Verified 05/22/24 13:23 Review of Systems Review of Systems: Yes all other systems are reviewed and are negative PMFSH Past Medical History Attestation statement: The following information was validated with the patient. Source: old records reviewed Medical History Diarrhea Right-sided back pain Acute right flank pain Otitis media Muscle strain Neck pain Back pain Murmur Right otitis media Encounter for well woman exam with routine gynecological exam Controlled type 2 diabetes mellitus Dermatitis of ear canal Breast cancer screening by mammogram Screening for cervical cancer Screening for colon cancer Adult general medical examination Bunion Essential hypertension Surgical History History of esophagogastroduodenoscopy (EGD) Hx of tonsillectomy History of colonoscopy with polypectomy Hx of section Family History Family History Mother Diabetes Brother Diabetes Sister Diabetes Social History Social History Housing: Apartment Alcohol intake: never Patient Tobacco Use Status: Never used Tobacco e-Cigarette/Vaping Use: Never Used Second Hand Smoke Exposure: No Advance Directives: No Advance Directives Information Provided: Yes Do you have a plan to hurt others: No Plan service: No Current occupational status: employed Current occupational exposures/hazards: No Sexual orientation: Straight/Heterosexual Gender identity: Female Cognitive needs: No Hearing needs: No Vision needs: No Physical Exam ED Vital Signs: Vital Signs - 24 hr 05/22/24 13:21 05/22/24 15:43 05/22/24 16:07 Temperature 97.5 F 97.1 F Pulse Rate 78 67 72 Respiratory Rate 20 18 16 Blood Pressure 165/68 H 123/69 Pulse Oximetry 95 95 Oxygen Delivery Method Room Air Room Air BMI result Body Mass Index 29.3 Appearance: Alert.?Oriented to person, place and time. No acute distress.?Normal affect. Eyes: Pupils equal, round and reactive to light.? ENT: TM normal bilaterally. Pharynx normal.??No sinus tenderness upon palpation. No sinus tenderness upon palpation Neck: Normal inspection.? Neck supple.??No cervical adenopathy CVS: Heart sounds normal. Normal heart rate and rhythm.? Pulses normal.?? Respiratory: No respiratory distress.? Lung sounds with expiratory wheezing and rhonchi bilaterally? Abdomen: Soft and non-tender. Normoactive bowel sounds. Skin: Skin warm and dry.? Normal skin color.? ? Extremities: No lower extremity edema.? Neuro: Moves all extremities spontaneously. Sensation intact bilaterally. No motor deficits. Ambulates with normal steady gait. Course Course Course Narrative: This is a Rapid Medical Examination (RME) performed by Ricci Alvarado PA-C in triage. Full HPI, ROS, assessment and treatment plan per primary provider in the Main ED. 58 yo female hx HTN, HDL, asthma, GERD, T2DM here for eval of dry cough, wheezing, and headache x2 weeks. no known sick contacts. +bronchospastic cough. audible wheezes. expiratory rhonchi primarily to bases. Plan: viral swabs, cxr, ED bronch protocol Reevaluation(s) Reevaluation #1: Speaking clear full sentences, ambulatory with steady gait. Discussed conservative treatment including rest, hydration, Tylenol/ibuprofen as needed for fever and body aches, saline nasal spray, humidifier, [id number] cold medication. Advised to follow-up with primary care provider as needed, discussed reasons to return back to the emergency department. All questions were answered. Patient discharged home in stable condition. Provided with a return to work/school note. Medications Administered Discontinued Medications Generic Name Dose Route Start Last Admin Trade Name Freq PRN Reason Stop Dose Admin Albuterol Sulfate 2.5 mg/ 0 mg 11/30/24 15:40 05/22/24 15:42 Albuterol/Ipratropium 3 ml INHALE 05/22/24 15:41 1 dose ONCE ONE Administration Prednisone 60 mg 05/22/24 14:26 05/22/24 14:34 Prednisone 20 Mg Tablet PO 05/22/24 14:27 60 mg ONCE ONE Administration Medical Decision Making Medical Decision Making MDM Narrative: Patient is a 58-year-old female with past medical history of mild intermittent asthma, type 2 diabetes, hyperlipidemia, GERD, hypertension, aortic stenosis, presenting for evaluation of cough and shortness of breath as per HPI. COVID-19 /influenza/RSV testing negative. At this time history and physical exam not consistent with ACS/PE no associated chest pain, wells negative. CXR obtained to exclude consolidation or infiltrate that might suggest pneumonia, no signs of the above on my interpretation, no evidence of pleural effusion or pulmonary vascular congestion to suggest CHF.. Overall appears mildly fatigued, she is afebrile without tachycardia, at rest no tachypnea or hypoxia, mildly tachypneic on exertion, lung sounds with expiratory wheezing and rhonchi bilaterally. ED bronchodilator protocol ordered, patient receive oral prednisone, and plan for re-evaluation. Symptomatic improvement, will discharge home with prescription for prednisone continued use of albuterol inhaler for asthma exacerbation strict return precautions Differential Diagnosis Differential Diagnoses: The differential diagnosis associated with the presentation includes ( See narrative above) Admission/Observation Consideration of admission/observation: Escalation of care including admission/observation considered ( see narrative above) Lab Data MDM Lab Attestation statement: I reviewed the patient's lab results. ( see narrative above) Labs: Lab Results 05/22/24 Range/Units 13:43 Influenza Type A (PCR) NEGATIVE (Negative) Influenza Type B (PCR) NEGATIVE (Negative) RSV RNA Qual (PCR) NEGATIVE (Negative) SARS-CoV-2 RNA (RT-PCR) NEGATIVE (Negative) Independent Interpretation I performed an independent interpretation of an: Plain X-Ray (No consolidation or infiltrate) Radiology Impression Discussion of test interpretation with radiology: I have reviewed the radiologist's reading. Radiologist Impression: XR/XR chest 2V IMPRESSION: No acute cardiopulmonary process. Mild chronic bronchial wall thickening. External Record Review External record reviewed: Outpatient record Prescription Management I considered prescription management with: Pain Medication ( acetaminophen/ibuprofen) and Antibiotic (Evidence of pneumonia, antibiotics deferred) Discharge Plan Discharge Clinical Impression: Bronchitis Patient Disposition: Home, Self-Care Instructions: How to Use a Metered-Dose Inhaler (ED), Acute Bronchitis (ED) Additional Instructions: Chest x-ray does not show evidence of pneumonia, testing for COVID flu and RSV were negative. [id number] guaifenesin/Robitussin can be helpful for cough. I have sent a prescription to the pharmacy medication known as Tessalon Perles or benzonatate which may be helpful for cough as well. Use albuterol inhaler 2 puffs every 4-6 hours as needed for shortness of breath or wheezing. A prescription for prednisone has been sent to your pharmacy, take this daily with food to prevent stomach upset. A prescription for azithromycin was sent as well. Follow-up with primary care doctor with any new or worsening symptoms or concerns. Prescriptions: New benzonatate 200 mg capsule 200 mg PO BID PRN (Reason: cough) Qty: 20 0RF prednisone 20 mg tablet 40 mg PO DAILY Qty: 10 0RF azithromycin 250 mg tablet See Rx Instructions .ROUTE .COMPLEX Qty: 6 0RF Rx Instructions: For 250 mg dose pack: take 500 mg today (day 1), then 250 mg for 4 days (days 2-5) No Action famotidine 40 mg tablet 40 mg PO BEDTIME Qty: 90 2RF Ozempic 0.25 mg or 0.5 mg (2 mg/3 mL) pen injector 0.5 mg subcut QWEEK Qty: 3 2RF ibuprofen 600 mg tablet 600 mg PO Q8H PRN (Reason: pain) 14 Days Qty: 42 0RF albuterol sulfate 90 mcg/actuation HFA aerosol inhaler 2 inh inhalation Q4H PRN (Reason: shortness of breath or wheezing) Qty: 8.5 3RF cetirizine 10 mg tablet 10 mg PO DAILY 90 Days Qty: 90 2RF Linzess 145 mcg capsule 145 mcg PO QAM 90 Days Qty: 90 1RF Rx Instructions: Take first thing in the morning with a full glass of water. PT did not tolerate Amitiza lisinopril 20 mg tablet 20 mg PO DAILY 90 Days Qty: 90 3RF atorvastatin 20 mg tablet 20 mg PO BEDTIME 90 Days Qty: 90 3RF Qvar RediHaler 80 mcg/actuation HFA aerosol breath activated 1 inh inhalation Q12H Qty: 10.6 3RF Rx Instructions: Gargle, brush teeth and rinse mouth after every use. fluocinolone acetonide oil 0.01 % drops 5 drp otic (ears) BID 7 Days Qty: 20 0RF lactulose 10 gram/15 mL solution 20 g PO BEDTIME Qty: 237 3RF peg 3350-electrolytes [Golytely] 236-22.74-6.74 -5.86 gram recon soln 240 ml PO Q10M 1 Days Qty: 4000 0RF Rx Instructions: until fecal effluent is clear; do not exceed a total volume of 2,000 mL bisacodyl [Dulcolax (bisacodyl)] 5 mg tablet,delayed release (DR/EC) 10 mg PO BEDTIME 2 Days Qty: 4 0RF Referrals: Tiki Luevano PA [Primary Care Provider] - Print Language: Surinamese
[2024-05-22 14:28] LABS: Influenza A PCR NEGATIVE (Negative); Influenza B PCR NEGATIVE (Negative); Resp Syncy Virus RNA Qual PCR NEGATIVE (Negative); SARS COV2 PCR INHOUSE NEGATIVE (Negative)
[2024-05-22] MEDS: predniSONE 20 MG TABLET 60 MG PO (14:34)
[2024-05-22] MEDS: Albuterol Sulfate 2.5 MG, Albuterol/Iprat 2.5/0.5MG 3 ML 3 ML INHALE (15:42)
[2024-05-22 15:43] VITALS: PULSE 67; RESP 18; O2SAT 95
[2024-05-22 16:07] VITALS: BP 123/69; PULSE 72; RESP 16; TEMP 36.2; O2SAT 95
[2024-05-22 16:56] VITALS: BP 123/69; PULSE 72; RESP 16; TEMP 36.2; O2SAT 95
== END 2024-05-22 16:56 | disposition home or self-care (01) ==
PROVIDERS: Physician Assistant Medical; Emergency Provider Emergency Medicine; PCP Physician Assistant Medical
DX: J40 Bronchitis, not specified as acute or chronic (principal); Z03.818 Encounter for observation for suspected exposure to other biological agents ruled out; R06.02 Shortness of breath; R05.9 Cough, unspecified; E11.9 Type 2 diabetes mellitus without complications; E78.00 Pure hypercholesterolemia, unspecified; I10 Essential (primary) hypertension; Z79.02 Long term (current) use of antithrombotics/antiplatelets; Z79.899 Other long term (current) drug therapy
CPT/HCPCS: 0241U; 71046; 94640; 99284

== ENCOUNTER 2024-05-27 14:40 | Outpatient (AMB) | payer OTHER, SELFPAY ==
--- NOTE | 2024-05-27 14:41 | A.OFFPC_ITS ---
Vital Signs 05/27/24 14:45 Height 5 ft 1 in Weight 155 lb BMI 29.3 BP 121/68 Blood Pressure Location Lt brachial Position Sitting Respiration 12 Pulse 75 Pulse Source Pulse Oximeter Temp 96.6 F L Temp Source Skin Pulse Oximetry (%) 95 Oxygen Delivery Method Room Air Intake Visit Reasons: ed fu and ozempic Intake Note: follow up from ER and ozempic Spinning Supervisor Required: No Allergies No Known Allergies Allergy (Verified 05/27/24 14:44) Tobacco use date assessed: 07/25/23 Dental Screening Dental Screen Date: 01/22/23 HPI HPI Comments History of Present Illness Details This is a 58-year-old female with a past medical history of Type II DM, hypertension, hyperlipidemia, tubular adenoma of the colon, asthma, idiopathic constipation and aortic stenosis presenting for ER follow up in a medication review. Patient was placed on prednisone when I saw her for her physical at the end of March due to a mild asthma exacerbation. Her symptoms resolved on prednisone, but they returned when she stopped the medication a few days later. Her pharmacy did not dispense the QVAR I prescribed her. She went to the emergency room. She had a negative triple swab for COVID/RSV/flu and her chest x-ray was negative for pneumonia. She was given a nebulizer treatment and discharged on prednisone and cough medication. Today is her last day of prednisone. She is better. She still has some cough and intermittent wheezing. She does not feel short of breath or have chest pain, fevers or chills. She is taking Zyrtec. She has a PFT scheduled. She is a nonsmoker. She was diagnosed with type 2 diabetes in 01/10/2024 with a hemoglobin A1c of 6.7%. She started Ozempic and is currently taking 0.5 mg weekly. Denies side effects. She would like to increase the dose to help with weight loss. Her hemoglobin A1c in March was 6.3%. She has a strong family history of diabetes. She has chronic dermatitis in her ears which responded to the fluocinolone acetonide oil prescribed in December, but symptoms returned. She was referred to Dermatology, but as the appointment was scheduled with the billboard erector helper and [facility]. ROS: Constitutional: No unexplained weight loss, fever, chills, fatigue or night sweats. Eyes: No vision changes, blurry vision, double vision, eye pain, eye redness, eye discharge. ENT: No hearing loss, sneezing, congestion, runny nose or sore throat. Respiratory: No hemoptysis or sputum production. See HPI Cardiovascular: No chest pain, chest pressure or chest discomfort. No palpitations or pedal edema. Skin: see HPI Physical exam: Constitutional: Alert, in no distress. Eyes: Pupils are equal, round and reactive to light. Extraocular muscles intact. Ear, Nose and Throat: Ear canals dry, skin desquamation noted bilaterally. TMs normal. Normal nasal mucosa. No nasal discharge. No oral lesions. Neck: Supple, Full range of motion. No lymphadenopathy. No palpable thyroid masses. Respiratory: Clear to auscultation. Normal respiratory effort. Occasional dry cough. Cardiovascular: S1 S2 regular. II/ systolic murmur. Extremities: Warm and well perfused. No clubbing, cyanosis or edema. Psychiatric: Normal mood and affect PFSH Medical History Diarrhea Right-sided back pain Acute right flank pain Otitis media Muscle strain Neck pain Back pain Murmur Right otitis media Encounter for well woman exam with routine gynecological exam Controlled type 2 diabetes mellitus Dermatitis of ear canal Breast cancer screening by mammogram Screening for cervical cancer Screening for colon cancer Adult general medical examination Bunion Essential hypertension Surgical History History of esophagogastroduodenoscopy (EGD) Hx of tonsillectomy History of colonoscopy with polypectomy Hx of section Family History Mother Diabetes Brother Diabetes Sister Diabetes Social History Housing: Apartment Alcohol intake: never Patient Tobacco Use Status: Never used Tobacco e-Cigarette/Vaping Use: Never Used Second Hand Smoke Exposure: No service: No Current occupational status: employed Current occupational exposures/hazards: No Sexual orientation: Straight/Heterosexual Gender identity: Female Cognitive needs: No Hearing needs: No Vision needs: No Female Reproductive History Menstrual Age of Menarche: 12 Questionnaire PHQ-9 Over the last 2 weeks, how often have you been bothered by any of the following problems? 44736 - PHQ-9 Billing: Patient declined-do not bill Source: Developed by Drs. Jaime Stephens, Halle Guevara, Hola Harmon and colleagues, with an educational socorro from [employer]. Thrive Questionnaire Date Thrive assessed: 05/27/24 I am a: Patient What is your living situation today?: I have a steady place to live Within the past 12 months, did the food you bought not last and you didn't have the money to get more?: I choose not to answer this question Within the past 12 months, did you worry whether your food would run out before you got money to buy more?: I choose not to answer this question Do you have trouble paying for medicines?: I choose not to answer this question Do you have trouble getting transportation to medical appointments?: No Do you have trouble paying your heating and electricity bill?: No Do you have trouble taking care of your child, family member or friend?: No Do you have trouble with day-to-day activities such as bathing, preparing meals, shopping, managing finances, etc.?: No Are you currently unemployed and looking for a job?: No Are you interested in more education?: No Please select the resources that you would like help with: None Currently or been in a relationship where the following occur: I choose not to answer THRIVE Score: 0 GOKUL-7 AMB Questionnaire GOKUL-7 Date GOKUL - 7 assessed: 01/09/24 Source: Developed by Drs. Jaime Stephens, Halle Guevara, Hola Harmon and colleagues, with an educational socorro from [employer]. Physical exam (Primary Care) Vital Signs: Last Vital Signs Temp 96.6 F L 05/27/24 14:45 Pulse 75 05/27/24 14:45 Resp 12 05/27/24 14:45 BP 121/68 05/27/24 14:45 Pulse Ox 95 05/27/24 14:45 Oxygen Delivery Method Room Air 05/27/24 14:45 BMI result Body Mass Index 29.3 Tobacco/Smoking Status: Tobacco use Status Tobacco use date assessed 07/25/23 05/27/24 14:45 Patient Tobacco Use Status Never used Tobacco 05/27/24 14:45 e-Cigarette/Vaping Use Never Used 05/27/24 14:45 Thrive Assessment: Date of Thrive Assessment Date Thrive assessed 05/27/24 05/27/24 14:45 Currently or been in a relationship where the following occur: I choose not to answer Coding Level of Care Code Est Pt Level 4 (65797) Complex EM visit Add On G2211 Diagnoses Dermatitis of both ear canals H60.543 Laterality: bilateral Controlled type 2 diabetes mellitus without complication, without long-term current use of insulin E11.9 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 insulin use: without care home use Diabetes mellitus complication status: without complication Mild intermittent asthma with acute exacerbation J45.21 Asthma severity: mild Asthma persistence: intermittent Asthma complication type: with acute exacerbation Assessment & Plan Assessment & Plan (1) Dermatitis of ear canal: Code(s): H60.549 - Acute eczematoid otitis externa, unspecified ear Category: Medical Qualifiers: Laterality: bilateral Qualified Code(s): H60.543 - Acute eczematoid otitis externa, bilateral (2) Controlled type 2 diabetes mellitus: Code(s): E11.9 - Type 2 diabetes mellitus without complications Category: Medical Qualifiers: 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 insulin use: without watermelon harvesting supervisor use Diabetes mellitus complication status: without complication Qualified Code(s): E11.9 - Type 2 diabetes mellitus without complications (3) Asthma: Code(s): J45.909 - Unspecified asthma, uncomplicated Category: Medical Qualifiers: Asthma severity: mild Asthma persistence: intermittent Asthma complication type: with acute exacerbation Qualified Code(s): J45.21 - Mild intermittent asthma with (acute) exacerbation Plan Patient was instructed to continue a low carbohydrate, low sugar diet and avoid alcohol. Complications of type 2 diabetes reviewed with the patient. Increase Ozempic to 1 mg once weekly once you complete the 4th dose of 0.5 mg weekly. Side effects reviewed. Continue Zyrtec 10 mg daily and albuterol 2 puffs every 4 hours as needed for cough, wheezing and shortness of breath. Sent Flovent 110 mcg 1 puff twice daily. Recommended multivitamin containing vitamin-D. Gargle and rinse mouth and throat after use. Referred to Allergy and immunology. PFT pending. I sent a message to the referrals department to see if her dermatology appointment can be booked locally. Medications: New semaglutide (Ozempic) 1 mg (0.75 mL) subcut QWEEK 3 mL 3RF fluticasone propionate 110 mcg/actuation 1 puff inhalation BID 12 grams 3RF inhalational spacing device (Space Chamber) As directed with inhaler 1 ea 0RF Discontinued beclomethasone dipropionate 80 mcg/actuation (Qvar RediHaler) Gargle, brush teeth and rinse mouth after every use. Discontinued Reason: Doctor's Order 1 inh inhalation Q12H 10.6 grams 3RF semaglutide (Ozempic) Discontinued Reason: Doctor's Order 0.5 mg (0.736 mL) subcut QWEEK 3 mL 2RF
[2024-05-27 14:45] VITALS: BP 121/68; PULSE 75; RESP 12; TEMP 35.9; O2SAT 95; BMI 29.3
== END 2024-05-27 15:10 | disposition home or self-care (01) ==
PROVIDERS: PCP Physician Assistant Medical; Visit Provider Physician Assistant Medical
DX: H60.543 Acute eczematoid otitis externa, bilateral (principal); E11.9 Type 2 diabetes mellitus without complications; J45.21 Mild intermittent asthma with (acute) exacerbation

== ENCOUNTER → 2024-05-27 | Outpatient (BNVA) | payer OTHER, SELFPAY | PROVIDERS: PCP Physician Assistant Medical; Visit Provider Physician Assistant Medical | DX: E11.9 Type 2 diabetes mellitus without complications (principal); H60.543 Acute eczematoid otitis externa, bilateral; J45.21 Mild intermittent asthma with (acute) exacerbation; I10 Essential (primary) hypertension; E78.5 Hyperlipidemia, unspecified | CPT/HCPCS: 99212 ==

== ENCOUNTER 2024-06-08 12:44 | Outpatient (REF) | payer OTHER, SELFPAY ==
[2024-06-08 11:13] VITALS: PULSE 75; O2SAT 94
--- NOTE | 2024-06-08 12:52 | PFT_ITS ---
Flows: FEV1: 67 % of predicted at 1.52 L FVC: 76 % of predicted at 1.52 L FEV1/FVC: 70 % Bronchodilator response: Present Volumes: Total lung capacity: 76 % of predicted at 3.49 L Residual volume: 90 % of predicted at 1.38 L Slow vital capacity: 68 % of predicted at 2.11 L Expiratory reserve volume: 5 % of predicted at 0.04 L Diffusion capacity: Normal Impression: Combined moderate obstructive and restrictive ventilatory defects with positive bronchodilator response. Decreased expiratory reserve volume suggests extrathoracic restriction likely secondary to abdominal obesity. MTDD
== END 2024-06-08 12:45 | disposition home or self-care (01) ==
LOC: HO.RESP 12:44
PROVIDERS: PCP Physician Assistant Medical; Visit Provider Physician Assistant Medical
DX: J45.20 Mild intermittent asthma, uncomplicated (principal)
CPT/HCPCS: 94010; 94640; 94727; 94729

== ENCOUNTER → 2024-06-08 12:52 | Outpatient (BNV) | payer OTHER, SELFPAY | PROVIDERS: PCP Physician Assistant Medical; Visit Provider Internal Medicine Pulmonary Disease | DX: J45.20 Mild intermittent asthma, uncomplicated (principal) | CPT/HCPCS: 94060; 94727; 94729 ==

== ENCOUNTER 2024-06-14 04:10 | Observation (INO) | payer OTHER, SELFPAY ==
[2024-06-14] VITALS (16 sets, daily range): BP systolic 110–154; BP diastolic 58–86; PULSE 80–125; RESP 14–22; TEMP 36.4–37.1; O2SAT 91–95; BMI 27.7; BMI 29.0
--- NOTE | ~2024-06-14 | XR_ITS ---
EXAMINATION: XR CHEST CLINICAL INFORMATION: sob COMPARISON: May 22, 2024 TECHNIQUE: Frontal view of the chest was obtained. FINDINGS: No significant abnormality is noted involving the heart, lungs, mediastinum, bony thorax or soft tissues. XR/XR chest 1V IMPRESSION: Unremarkable examination. Electronically signed by: Dany Vincent MD 06/14/2024 04:52 AM [facility]
[2024-06-14 04:34] LABS: Basophils Percent Auto 0.6 % (0-2); Eosinophils Absolute Auto 1.2 X10*3/uL (0.0-0.4); Eosinophils Percent Auto 23.2 % (0-4); Hematocrit 41.6 % (37.0-47.0); Hemoglobin 14.2 g/dl (12.0-16.0); Imm Gran Abs Auto 0.01 X10*3/uL (0.00-0.03); Imm Gran Pct Auto 0.2 % (0.0-0.4); Lymphocytes Absolute Auto 1.8 X10*3/uL (1.2-4.9); Mean Corpuscular HGB Conc 34.1 g/dl (31.0-35.0); Mean Corpuscular Hemoglobin 29.6 pg (27.0-33.0); Mean Corpuscular Volume 86.8 fL (80.0-98.0); Mean Platelet Volume 9.3 fL (9.4-12.3); Monocytes Absolute Auto 0.3 X10*3/uL (0.1-1.2); Monocytes Percent Auto 5.3 % (2-11); Neutrophils Absolute Auto 1.9 x10*3/uL (2.0-8.3); Neutrophils Percent Auto 36.7 % (45-73); Platelet Count 244 X10*3/uL (160-400); Red Blood Count 4.79 X10*6/uL (4.20-5.50); Red Cell Distribution Width 12.3 % (11.0-16.0); SCAN SMEAR FLAG 1; White Blood Count 5.1 X10*3/uL (4.8-10.8)
[2024-06-14 04:35] LABS: MANUAL DIFF FLAG SCAN
[2024-06-14] MEDS: Albuterol Sulfate 7.5 MG, Albuterol Sulfate (0.083%) 2.5 MG 10 MG INHALE (04:35)
--- NOTE | 2024-06-14 04:51 | ED.SOB ---
HPI - SOB/Dyspnea General Chief Complaint: Dyspnea Stated Complaint: sob Time Seen by Provider: 06/14/24 04:47 Source: patient Mode of arrival: ambulatory Limitations: no limitations History of Present Illness ED Provider: Dr. Claudia Figueredo HPI Narrative: Patient comes to the emergency room complaining of shortness of breath. According to the patient, patient has known asthma exacerbations. Tend to be worse during cold weather. Patient denies smoking. Patient denies any chest pain. Related Data Previous Rx's ?Medication ?Instructions ?Recorded ibuprofen 600 mg tablet 600 mg PO Q8H PRN pain 14 days #42 12/28/21 tabs linaclotide 145 mcg capsule 145 mcg PO QAM 90 days #90 caps 11/06/23 (Linzess) albuterol sulfate 90 mcg/actuation 2 inh inhalation Q4H PRN shortness 01/09/24 aerosol inhaler of breath or wheezing #8.5 grams atorvastatin 20 mg tablet 20 mg PO BEDTIME 90 days #90 tabs 04/15/24 fluocinolone acetonide oil 0.01 % 5 drp otic (ears) BID 7 days #20 mL 04/15/24 ear drops lisinopril 20 mg tablet 20 mg PO DAILY 90 days #90 tabs 04/15/24 bisacodyl 5 mg tablet,delayed 10 mg (2 x 5 mg) PO BEDTIME 2 days 05/07/24 release (Dulcolax (bisacodyl)) #4 tabs lactulose 10 gram/15 mL oral 20 g (30 mL) PO BEDTIME #237 mL 05/07/24 solution peg 3350-electrolytes 236 240 ml PO Q10M 1 day #4,000 mL 05/07/24 gram-22.74 gram-6.74 gram-5.86 gram solution (Golytely) famotidine 40 mg tablet 40 mg PO BEDTIME #90 tabs 05/13/24 benzonatate 200 mg capsule 200 mg PO BID PRN cough #20 caps 05/22/24 cetirizine 10 mg tablet 10 mg PO DAILY 90 days #90 tabs 05/24/24 inhalational spacing device (Space #1 ea 05/27/24 Chamber) semaglutide 1 mg/dose (4 mg/3 mL) 1 mg (0.75 mL) subcut QWEEK #3 mL 05/27/24 subcutaneous pen injector (Ozempic) beclomethasone dipropionate 80 2 inh inhalation BID #10.6 grams 06/07/24 mcg/actuation HFA breath activated aerosol (Qvar RediHaler) Allergies Allergy/AdvReac Type Severity Reaction Status Date / Time milk Allergy Unknown Verified 06/14/24 04:16 Review of Systems Review of Systems: Constitutional : No Weight loss, No Fever, No Chills, No Night Sweats, No Fatigue, No Malaise ENT/Mouth : No Hearing loss, No Ear Pain, No Nasal Congestion, No Sinus Pain, No Hoarseness, No sore throat, No Rhinorrhea, No Swallowing Difficulty Eyes: No Eye Pain, No Swelling, No Redness, No Foreign Body, No Discharge, No Vision Changes Cardiovascular : No Chest Pain, No SOB, No Dyspnea on Exertion, No Orthopnea, No Edema, No Palpitations Respiratory : Complaining of dry cough, wheezing, shortness of breath Gastrointestinal : No Nausea, No Vomiting, No Diarrhea, No Constipation, No abdominal Pain, No Hematochezia, No Melena Genitourinary : no irregular bleeding, No Dysuria, No Urinary Frequency, No Hematuria, No Urinary Incontinence, No Urgency, No Flank Pain, No Urinary Flow Changes, No Hesitancy Musculoskeletal : No joint pain, No Myalgias, No Joint Swelling Skin : No Skin Lesions, No rash Neuro : No Weakness, No Numbness, No Paresthesias, No Loss of Consciousness, No Dizziness, No Headache Psych : No Anxiety/Panic, No Depression, No SI/HI/AH/VH, No Social Issues, Heme/Lymph: No Bruising, No Bleeding,No Lymphadenopathy Endocrine : No Polyuria, No Polydipsia, No Temperature Intolerance PMFSH Past Medical History Medical History Diarrhea Right-sided back pain Acute right flank pain Otitis media Muscle strain Neck pain Back pain Murmur Right otitis media Encounter for well woman exam with routine gynecological exam Controlled type 2 diabetes mellitus Dermatitis of ear canal Breast cancer screening by mammogram Screening for cervical cancer Screening for colon cancer Adult general medical examination Bunion Essential hypertension Surgical History History of esophagogastroduodenoscopy (EGD) Hx of tonsillectomy History of colonoscopy with polypectomy Hx of section Family History Family History Mother Diabetes Brother Diabetes Sister Diabetes Social History Social History Housing: Apartment Alcohol intake: never Patient Tobacco Use Status: Never used Tobacco Smoked in Last 30 Days: No e-Cigarette/Vaping Use: Never Used Second Hand Smoke Exposure: No Use of substances other than those prescribed or required for medical reasons: No Advance Directives: No Advance Directives Information Provided: Yes service: No Current occupational status: employed Current occupational exposures/hazards: No Sexual orientation: Straight/Heterosexual Gender identity: Female Cognitive needs: No Hearing needs: No Vision needs: No Physical Exam Vital Signs: Vital Signs: Last Vital Signs Temp 97.8 F 06/14/24 04:25 Pulse 111 H 06/14/24 05:14 Resp 18 06/14/24 05:14 BP 153/70 H 06/14/24 04:25 Pulse Ox 94 06/14/24 04:25 O2 Del Method Room Air 06/14/24 04:25 BMI result Body Mass Index 27.7 Const: Other: Appearance: Alert. Oriented X3. No acute distress. Eyes: Pupils equal, round and reactive to light. ENT: Pharynx normal. Neck: Normal inspection. Neck supple. No lymph nodes noted. No crepitus CVS: Normal heart rate and rhythm. Pulses normal. Normal S1 and S2 Respiratory: Tachypneic in the 30s, bilateral wheezing, mother there movement, speaking in full sentences, oxygen saturation 94% on room air Abdomen: Soft and nontender. No rigidity. No distention. Skin: Skin warm and dry. Normal skin color. Normal skin turgor. Extremities: No lower extremity edema. No Lacerations. No Rash Neuro: Oriented X 3. No motor deficit. No sensory deficit. Moving all extremities. No slurred speech. CN 2 through 12 grossly intact Psych: calm, cooperative, normal affect Course Course Course Narrative: Patient receiving nebulization treatment, IV Solu-Medrol and magnesium Labs pending Chest x-ray pending Medications Administered Discontinued Medications Generic Name Dose Route Start Last Admin Trade Name Freq PRN Reason Stop Dose Admin Albuterol Sulfate 7.5 mg/ 10 mg 06/14/24 04:24 06/14/24 04:35 Albuterol Sulfate 2.5 mg INHALE 06/14/24 04:25 10 mg ONCE ONE Administration Albuterol Sulfate 5 mg/ 7.5 mg 06/14/24 05:13 06/14/24 05:15 Albuterol Sulfate 2.5 mg INHALE 06/14/24 05:14 7.5 mg ONCE ONE Administration Magnesium Sulfate/Dextrose 1 gm in 100 mls @ 100 mls/hr 06/14/24 04:48 06/14/24 05:57 Magnesium Sulfate/D5w IV 06/14/24 05:47 Infused ONCE ONE Infusion Methylprednisolone Sodium Succinate 60 mg 06/14/24 04:48 06/14/24 04:56 Methylprednisolone Sod Succ 125 Mg/2 Ml Vial IVPUSH 06/14/24 04:49 60 mg ONCE ONE Administration Medical Decision Making Medical Decision Making MDM Narrative: Chest x-ray: No significant abnormalities, no infiltrate Patient's labs, hematology and chemistry unremarkable. Patient received multiple treatments for asthma exacerbation, nebulization treatments. Patient's oxygen saturation is 93% on room air. However, patient can not tolerate walk-in fire, becomes very tachypneic, short of breath, starts wheezing again. I discussed the patient with Dr. Franklin, patient being admitted for asthma exacerbation Differential Diagnosis Differential Diagnoses: The differential diagnosis associated with the presentation includes (Asthma, pneumonia, viral URI) Admission/Observation Consideration of admission/observation: Escalation of care including admission/observation considered Consult Healthcare Provider Management of the patient was discussed with: Hospitalist Lab Data [facility] Lab Attestation statement: I reviewed the patient's lab results. 06/14/24 04:29 06/14/24 04:29 Labs: Lab Results 06/14/24 Range/Units 04:29 WBC 5.1 (4.8-10.8) X10*3/uL RBC 4.79 (4.20-5.50) X10*6/uL Hgb 14.2 (12.0-16.0) g/dl Hct 41.6 (37.0-47.0) % MCV 86.8 (80.0-98.0) fL MCH 29.6 (27.0-33.0) pg MCHC 34.1 (31.0-35.0) g/dl RDW 12.3 (11.0-16.0) % Plt Count 244 (160-400) X10*3/uL MPV 9.3 L (9.4-12.3) fL Immature Gran % (Auto) 0.2 (0.0-0.4) % Neut % (Auto) 36.7 L (45-73) % Lymph % (Auto) 34.0 (20-40) % [place] % (Auto) 5.3 (2-11) % Eos % (Auto) 23.2 H (0-4) % Baso % (Auto) 0.6 (0-2) % Lymph # (Auto) 1.8 (1.2-4.9) X10*3/uL [place] # (Auto) 0.3 (0.1-1.2) X10*3/uL Eos # (Auto) 1.2 H (0.0-0.4) X10*3/uL Baso # (Auto) 0.0 (0.0-0.2) X10*3/uL Abs Immat Gran (auto) 0.01 (0.00-0.03) X10*3/uL Absolute Neuts (auto) 1.9 L (2.0-8.3) x10*3/uL Absolute Nucleated RBC 0.000 (0.0-0.012) X10*3/uL Nucleated RBC % (auto) 0.0 (0.0-0.2) /100WBC Smear Tech's Comments VERIFIED Sodium 141 (135-145) mmol/L Potassium 4.0 (3.3-5.1) mmol/L Chloride 109 H (96-108) mmol/L Carbon Dioxide 22 (22-29) mmol/L Anion Gap 14 (12-20) BUN 12 (9-16) mg/dL Creatinine 0.76 (0.5-1.4) mg/dL Estim Creat Clear Calc 70.4 Estimated GFR > 60 Random Glucose 131 H (60-115) mg/dL Calcium 8.8 (8.4-10.2) mg/dL Total Bilirubin 0.8 (0.0-1.0) mg/dL AST 29 (5-31) U/L ALT 29 (0-31) U/L Alkaline Phosphatase 125 H (39-117) U/L Total Protein 7.5 (6.5-8.0) g/dL Albumin 4.3 (3.5-5.0) g/dL Independent Interpretation I performed an independent interpretation of an: Plain X-Ray Radiology Impression Discussion of test interpretation with radiology: I have reviewed the radiologist's reading. Radiologist Impression: No significant abnormality is noted involving the heart, lungs, mediastinum, bony thorax or soft tissues. Critical Care Time Critical Care Time Critical Care Time: Yes Total Critical Care Time: 60 Attestation: I have personally provided critical care time. Time includes review of lab data, radiology results, discussion with consultants, and monitoring for potential decompensation. Intervention performed as documented. Discharge Plan Discharge Clinical Impression: Asthma Patient Disposition: Admitted As Inpatient Prescriptions: No Action famotidine 40 mg tablet 40 mg PO BEDTIME Qty: 90 2RF cetirizine 10 mg tablet 10 mg PO DAILY 90 Days Qty: 90 2RF Qvar RediHaler 80 mcg/actuation HFA aerosol breath activated 2 inh inhalation BID Qty: 10.6 3RF benzonatate 200 mg capsule 200 mg PO BID PRN (Reason: cough) Qty: 20 0RF ibuprofen 600 mg tablet 600 mg PO Q8H PRN (Reason: pain) 14 Days Qty: 42 0RF albuterol sulfate 90 mcg/actuation HFA aerosol inhaler 2 inh inhalation Q4H PRN (Reason: shortness of breath or wheezing) Qty: 8.5 3RF Linzess 145 mcg capsule 145 mcg PO QAM 90 Days Qty: 90 1RF Rx Instructions: Take first thing in the morning with a full glass of water. PT did not tolerate Amitiza lisinopril 20 mg tablet 20 mg PO DAILY 90 Days Qty: 90 3RF atorvastatin 20 mg tablet 20 mg PO BEDTIME 90 Days Qty: 90 3RF fluocinolone acetonide oil 0.01 % drops 5 drp otic (ears) BID 7 Days Qty: 20 0RF lactulose 10 gram/15 mL solution 20 g PO BEDTIME Qty: 237 3RF peg 3350-electrolytes [Golytely] 236-22.74-6.74 -5.86 gram recon soln 240 ml PO Q10M 1 Days Qty: 4000 0RF Rx Instructions: until fecal effluent is clear; do not exceed a total volume of 2,000 mL bisacodyl [Dulcolax (bisacodyl)] 5 mg tablet,delayed release (DR/EC) 10 mg PO BEDTIME 2 Days Qty: 4 0RF Ozempic 1 mg/dose (4 mg/3 mL) pen injector 1 mg subcut QWEEK Qty: 3 3RF (DME) Space Chamber Spacer See Rx Instructions .Route Qty: 1 0RF Rx Instructions: As directed with inhaler Print Language: Setswana
[2024-06-14 04:52] LABS: SLIDE REVIEW VERIFIED
[2024-06-14] MEDS: methylPREDNISolone Sod Succ 125 MG/2 ML VIAL 60 MG IVPUSH (04:56)
[2024-06-14] MEDS: Magnesium Sulfate/D5W 1 GM/100 ML PIGGYBACK IV (04:56)
[2024-06-14 05:05] LABS: Alanine Aminotransferase 29 U/L (0-31); Albumin Level 4.3 g/dL (3.5-5.0); Alkaline Phosphatase 125 U/L (39-117); Anion Gap 14 (12-20); Aspartate Amino Transferase 29 U/L (5-31); Bilirubin Total 0.8 mg/dL (0.0-1.0); Blood Urea Nitrogen 12 mg/dL (9-16); Calcium 8.8 mg/dL (8.4-10.2); Carbon Dioxide 22 mmol/L (22-29); Chloride 109 mmol/L (96-108); Creatinine Clr Calc Pharmacy 70.4; Estimated Glomerular Filt Rate > 60; Glucose Random 131 mg/dL (60-115); Sodium 141 mmol/L (135-145); Total Protein 7.5 g/dL (6.5-8.0)
[2024-06-14] MEDS: Albuterol Sulfate 5 MG, Albuterol Sulfate (0.083%) 2.5 MG 7.5 MG INHALE (05:15)
--- NOTE | 2024-06-14 06:10 | PC.NURSE ---
Ambulation trial completed and remained 93% or greater for oxygenation, relayed information to MD
[2024-06-14 06:55] LABS: Influenza A PCR NEGATIVE (Negative); Influenza B PCR NEGATIVE (Negative); Resp Syncy Virus RNA Qual PCR NEGATIVE (Negative); SARS COV2 PCR INHOUSE NEGATIVE (Negative)
--- NOTE | 2024-06-14 07:39 | PC.NURSE ---
pt is alert and oriented, skin appropriate for ethnicity, respirations even and unlabored, ls wheezing through out with inspirations, sating at 94% on room air, dry cough-reports having a headache with the cough pain at 8/10 feels like pressure in the head and in the sinus cavity in the face
--- NOTE | 2024-06-14 08:09 | PM.IMHP ---
History of Present Illness Date of Service: 06/14/24 Chief Complaint: sob 58F PMH newly diagnosed moderate persistent asthma, htn, hld, obesity, preDM, presented with sob. Patient has been having ongoing symptoms since about 2 months prior to presentation. Shortness breath and dry cough. Denies fever or chills. Was recently diagnosed with asthma with PFTs. Controller inhaler ordered but has not picked up yet. Was treated with p.r.n. albuterol and course of prednisone which provided only temporary relief. Returning now for worsening shortness of breath. In ED chest x-ray unremarkable viral screen unremarkable, saturation 93% on room air. Review of Systems Review of Systems: Yes all other systems are reviewed and are negative [facility] Medical History Diarrhea Right-sided back pain Acute right flank pain Otitis media Muscle strain Neck pain Back pain Murmur Right otitis media Encounter for well woman exam with routine gynecological exam Controlled type 2 diabetes mellitus Dermatitis of ear canal Breast cancer screening by mammogram Screening for cervical cancer Screening for colon cancer Adult general medical examination Bunion Essential hypertension Family History Mother Diabetes Brother Diabetes Sister Diabetes Surgical History History of esophagogastroduodenoscopy (EGD) Hx of tonsillectomy History of colonoscopy with polypectomy Hx of section Social History Housing: Apartment Alcohol intake: never Patient Tobacco Use Status: Never used Tobacco Smoked in Last 30 Days: No e-Cigarette/Vaping Use: Never Used Second Hand Smoke Exposure: No Use of substances other than those prescribed or required for medical reasons: No Advance Directives: No Advance Directives Information Provided: Yes service: No Current occupational status: employed Current occupational exposures/hazards: No Sexual orientation: Straight/Heterosexual Gender identity: Female Cognitive needs: No Hearing needs: No Vision needs: No Meds Allergies Allergy/AdvReac Type Severity Reaction Status Date / Time milk Allergy Unknown Verified 06/14/24 04:16 Home Medications ?Medication ?Instructions ?Recorded ?Confirmed ?Last Taken ?Type semaglutide 0.25 mg or 0.5 mg (2 0.5 mg subcut FR 06/14/24 06/14/24 06/11/24 History mg/3 mL) subcutaneous pen injector (Ozempic) Physical Exam Vital Signs and Narrative: Vital Signs: Last Vital Signs Temp 98.1 F 06/14/24 07:33 Pulse 115 H 06/14/24 07:33 Resp 20 06/14/24 07:33 BP 135/80 06/14/24 07:33 Pulse Ox 94 06/14/24 07:33 O2 Del Method Room Air 06/14/24 07:33 BMI result Body Mass Index 27.7 General: AO X 3, no acute distress Resp: wheezing bilateral, no accessory muscles used CVS: S1,S2,RRR GI: soft, non tender, non distended Neuro: motor grossly intact, alert Psych: appropriate affect, appropriate insight Results Labs 06/14/24 04:29 06/14/24 04:29 Labs: Laboratory Results - last 24 hr 06/14/24 06/14/24 04:29 06:15 MCV 86.8 MCH 29.6 MCHC 34.1 RDW 12.3 Plt Count 244 MPV 9.3 L Immature Gran % (Auto) 0.2 Neut % (Auto) 36.7 L Lymph % (Auto) 34.0 [place] % (Auto) 5.3 Eos % (Auto) 23.2 H Baso % (Auto) 0.6 Lymph # (Auto) 1.8 [place] # (Auto) 0.3 Eos # (Auto) 1.2 H Baso # (Auto) 0.0 Abs Immat Gran (auto) 0.01 Absolute Neuts (auto) 1.9 L Absolute Nucleated RBC 0.000 Nucleated RBC % (auto) 0.0 Smear Tech's Comments VERIFIED Anion Gap 14 Estim Creat Clear Calc 70.4 Estimated GFR > 60 Random Glucose 131 H Calcium 8.8 Total Bilirubin 0.8 AST 29 ALT 29 Alkaline Phosphatase 125 H Total Protein 7.5 Albumin 4.3 Influenza Type A (PCR) NEGATIVE Influenza Type B (PCR) NEGATIVE RSV RNA Qual (PCR) NEGATIVE SARS-CoV-2 RNA (RT-PCR) NEGATIVE Imaging Radiologist's Impressions: Impressions Chest X-Ray 06/14/24 04:35 IMPRESSION: Unremarkable examination. Electronically signed by: Dany Vincent MD 06/14/2024 04:52 AM EST Assessment and Plan (1) Asthma: Qualifiers: Asthma complication type: with acute exacerbation Asthma persistence: intermittent Asthma severity: mild Qualified Code(s): J45.21 - Mild intermittent asthma with (acute) exacerbation Status: Acute Plan 58F PMH newly diagnosed moderate persistent asthma, htn, hld, obesity, preDM, presented with sob Moderate persistent asthma with acute decompensation Steroids, DuoNebs, start controller inhaler Prediabetes Diet-controlled Hypertension lisinopril Hyperlipidemia statin DVT prophylaxis with Lovenox Full Code Quality Stroke Does the patient have a stroke diagnosis?: No VTE Prior VTE?: No VTE Risk Level:: Medical - moderate - high VTE Device Contraindication: Treatment Not Indicated VTE Drug Contraindication: N/A - Med Ordered
[2024-06-14] MEDS: Enoxaparin Sodium 40 MG/0.4 ML SYRINGE SUBCUT (08:45)
--- NOTE | 2024-06-14 09:08 | PHA.MEDREC ---
Addendum entered by Yousif Wagner RPh 06/14/24 09:56: MED REC CHECKED BY [facility] Original Note: Pharmacy Consult ? Medication Reconciliation Pharmacy has completed the medication reconciliation. Spoke with patient and she confirmed her medications. Patent confirmed she is no longer taking the Linzess 145mg cap and stated her Dr stopped that back in November. She confirmed she is not taking the Peg 3350-electrolytes solution nor has it at home yet and states she has a colonoscopy scheduled in July to be done. She confirmed she is now taking the Ozempic 0.5 mg (2 mg/3 mL) once a week and confirmed she is taking it on Fridays and took it this past Friday. She confirmed she took her medications yesterday.
[2024-06-14] MEDS: Albuterol/Iprat 2.5/0.5MG 3 ML AMPUL.NEB INHALE ×2 (13:19→18:57)
[2024-06-14] MEDS: 0.9 % Sodium Chloride Flush 3 ML SYRINGE IVFLUSH ×2 (15:20→21:07)
[2024-06-14] MEDS: Ibuprofen 400 MG TABLET PO (15:20)
[2024-06-14 20:48] LABS: Glucose, Whole Blood 151 mg/dL (60-115)
[2024-06-14] MEDS: Famotidine 20 MG TABLET 40 MG PO (21:06)
[2024-06-14] MEDS: Atorvastatin Calcium 20 MG TABLET PO (21:06)
[2024-06-14] MEDS: Melatonin 3 MG TABLET 6 MG PO (21:07)
[2024-06-14] MEDS: Acetaminophen 325 MG TABLET 650 MG PO (21:07)
[2024-06-15 04:00] VITALS: BP 143/71; PULSE 73; RESP 16; TEMP 36.4; O2SAT 97
[2024-06-15 05:56] LABS: Hematocrit 38.5 % (37.0-47.0); Hemoglobin 13.3 g/dl (12.0-16.0); Mean Corpuscular HGB Conc 34.5 g/dl (31.0-35.0); Mean Corpuscular Hemoglobin 30.3 pg (27.0-33.0); Mean Corpuscular Volume 87.7 fL (80.0-98.0); Mean Platelet Volume 9.5 fL (9.4-12.3); Platelet Count 262 X10*3/uL (160-400); Red Blood Count 4.39 X10*6/uL (4.20-5.50); Red Cell Distribution Width 12.9 % (11.0-16.0); White Blood Count 9.7 X10*3/uL (4.8-10.8)
[2024-06-15 06:23] LABS: Anion Gap 14 (12-20); Blood Urea Nitrogen 18 mg/dL (9-16); Calcium 9.8 mg/dL (8.4-10.2); Carbon Dioxide 25 mmol/L (22-29); Chloride 108 mmol/L (96-108); Creatinine Clr Calc Pharmacy 70.1; Estimated Glomerular Filt Rate > 60; Glucose Random 105 mg/dL (60-115); Potassium 4.9 mmol/L (3.3-5.1); Sodium 142 mmol/L (135-145)
[2024-06-15 07:26] VITALS: BP 126/78; PULSE 72; RESP 16; TEMP 36.4; O2SAT 93
[2024-06-15] MEDS: Loratadine 10 MG TABLET PO (07:42)
[2024-06-15] MEDS: lisinopriL 20 MG TABLET PO (07:43)
[2024-06-15] MEDS: Enoxaparin Sodium 40 MG/0.4 ML SYRINGE SUBCUT (07:43)
[2024-06-15] MEDS: predniSONE 20 MG TABLET 40 MG PO (07:44)
[2024-06-15] MEDS: 0.9 % Sodium Chloride Flush 3 ML SYRINGE IVFLUSH (07:49)
[2024-06-15] MEDS: Fluticasone/Vilanterol 200/25 BLST.W.DEV 1 PUFF INHALE (07:50)
[2024-06-15] MEDS: Albuterol/Iprat 2.5/0.5MG 3 ML AMPUL.NEB INHALE (07:51)
[2024-06-15 07:52] VITALS: PULSE 72; RESP 16; O2SAT 96
--- NOTE | 2024-06-15 09:02 | P.DS_ITS ---
DS: Providers Provider Date of Service: 06/15/24 Date of admission: 06/14/24 08:06 Date of discharge: 06/15/24 Primary care physician: SYBIL Berry DS: Diagnosis Discharge Diagnosis (1) Asthma: Status: Acute DS: Summary Hospital Course Hospital Course: from initial hpi: 58F PMH newly diagnosed moderate persistent asthma, htn, hld, obesity, preDM, presented with sob. Patient has been having ongoing symptoms since about 2 months prior to presentation. Shortness breath and dry cough. Denies fever or chills. Was recently diagnosed with asthma with PFTs. Controller inhaler ordered but has not picked up yet. Was treated with p.r.n. albuterol and course of prednisone which provided only temporary relief. Returning now for worsening shortness of breath. In ED chest x-ray unremarkable viral screen unremarkable, saturation 93% on room air. hospital course: Patient was admitted for moderate persistent asthma with acute decompensation. She was treated IV steroids, DuoNebs and symptoms improved. She will be discharged home on longer prednisone taper as she failed previous short course. We will also continue on controller inhaler. For prediabetes she was diet controlled. For hypertension she was continued on lisinopril. For hyperlipidemia was continue statin. Time Attestation Discharge Coordination Time (in mins): 34 Quality: Safe Use of Opioids Does Pt have an Active Cancer Diagnosis on the Problem List?: No Quality: Stroke Does the patient have a stroke diagnosis?: No Physical Exam Vital Signs: Vital Signs: Last Vital Signs Temp 97.6 F 06/15/24 07:26 Pulse 72 06/15/24 07:52 Resp 16 06/15/24 07:52 BP 126/78 06/15/24 07:26 Pulse Ox 93 06/15/24 07:26 O2 Del Method Room Air 06/15/24 07:26 BMI result Body Mass Index 29.0 General: AO X 3, no acute distress Resp: Improved expiratory wheeze bilateral, no accessory muscles used CVS: S1,S2,RRR GI: soft, non tender, non distended Neuro: motor grossly intact, alert Psych: appropriate affect, appropriate insight DS: Data Data Completed and Pending Labs on day of discharge: Laboratory Results - last 24 hr 06/14/24 06/15/24 20:45 05:21 WBC 9.7 RBC 4.39 Hgb 13.3 Hct 38.5 MCV 87.7 MCH 30.3 MCHC 34.5 RDW 12.9 Plt Count 262 MPV 9.5 Absolute Nucleated RBC 0.000 Nucleated RBC % (auto) 0.0 Sodium 142 Potassium 4.9 D Chloride 108 Carbon Dioxide 25 Anion Gap 14 BUN 18 H Creatinine 0.78 Estim Creat Clear Calc 70.1 Estimated GFR > 60 POC Glucose 151 H Random Glucose 105 Calcium 9.8 D Discharge Plan Discharge Anticipated Discharge Date/Time: 06/15/24 09:00 Patient Disposition: Home, Self-Care Discharge Diagnosis: Asthma exacerbation Referrals: Tiki Luevano PA [Primary Care Provider] - 1 Week Discharge Medications: New fluticasone furoate-vilanterol [Breo Ellipta] 200-25 mcg/dose Blister With Device 1 inh inhalation RDAILY Qty: 0 0RF prednisone 20 mg tablet 40 mg PO DAILY Qty: 15 0RF Rx Instructions: 40 mg daily for 5 days and then 20 mg daily for 5 days Continued famotidine 40 mg tablet 40 mg PO BEDTIME Qty: 90 2RF cetirizine 10 mg tablet 10 mg PO DAILY 90 Days Qty: 90 2RF Ozempic 0.25 mg or 0.5 mg (2 mg/3 mL) pen injector 0.5 mg subcut FR ibuprofen 600 mg tablet 600 mg PO Q8H PRN (Reason: pain) 14 Days Qty: 42 0RF albuterol sulfate 90 mcg/actuation HFA aerosol inhaler 2 inh inhalation Q4H PRN (Reason: shortness of breath or wheezing) Qty: 8.5 3RF lisinopril 20 mg tablet 20 mg PO DAILY 90 Days Qty: 90 3RF atorvastatin 20 mg tablet 20 mg PO BEDTIME 90 Days Qty: 90 3RF (DME) Space Chamber Spacer See Rx Instructions .Route Qty: 1 0RF Rx Instructions: As directed with inhaler Discharge Orders: Discharge Order (Routine); Ordered 06/15/24 Ordered By: Scooby Veronica Diet: Advance to usual diet Activity on Discharge: As tolerated Stand Alone Forms: Patient Portal Discharge page Print Language: Maltese Care Plan Goals: Manage asthma and prevent exacerbations Health Concerns: Asthma Plan of Treatment: Prednisone taper as directed Start maintenance inhaler, can finish the one obtained in hospital and then use the one prescribed by PCP Assessment: see above
--- NOTE | 2024-06-15 10:45 | MHC.CM.PN ---
[facility] DELIVERED PT LIVES ALONE. INDEPENDENT WITH MOBILITY AND EMPLOYED F/T. DECLINES COMPLETING A HCP AT THIS TIME. PCP LAURA ROBLEDO DP: PT HAS BEEN MEDICALLY CLEARED FOR DC HOME, NO SERVICES. PT HAS OWN RIDE HOME
== END 2024-06-15 11:10 | disposition home or self-care (01) ==
LOC: HO.ED 06:24 → HO.EDOVER 08:22 → HO.S3 19:09
PROVIDERS: Admitting Provider Internal Medicine; Emergency Provider Emergency Medicine; PCP Physician Assistant Medical; Visit Provider Internal Medicine
DX: J45.21 Mild intermittent asthma with (acute) exacerbation (principal); R06.02 Shortness of breath; R05.9 Cough, unspecified; I10 Essential (primary) hypertension; Z79.899 Other long term (current) drug therapy; Z03.818 Encounter for observation for suspected exposure to other biological agents ruled out
CPT/HCPCS: 0241U; 36415; 71045; 80048; 80053; 82947; 85025; 85027; 96365; 96372; 96375; 99221; 99285; J1650; J2919; J3475

== ENCOUNTER → 2024-06-14 08:06 | Outpatient (BNV) | payer OTHER, SELFPAY | PROVIDERS: Admitting Provider Internal Medicine; Emergency Provider Emergency Medicine; PCP Physician Assistant Medical; Visit Provider Internal Medicine | DX: J45.21 Mild intermittent asthma with (acute) exacerbation (principal) | CPT/HCPCS: 99239 ==

== ENCOUNTER 2024-06-24 10:47 | Outpatient (AMB) | payer OTHER, SELFPAY ==
--- NOTE | 2024-06-24 10:50 | MHC.PC.OV ---
Vital Signs 06/24/24 10:53 Height 5 ft 1 in Weight 152 lb BMI 28.7 BP 112/68 Blood Pressure Location Rt brachial Position Sitting Respiration 13 Pulse 58 Pulse Source Pulse Oximeter Pulse Oximetry (%) 96 Oxygen Delivery Method Room Air Intake Visit Reasons: [facility] Intake Note: follow up Inventory Control Analyst Required: No Allergies milk Allergy (Verified 06/24/24 10:51) Unknown Tobacco use date assessed: 07/25/23 Dental Screening Dental Screen Date: 01/22/23 HPI HPI Comments History of Present Illness Details This is a 58-year-old female with a past medical history of Type II DM, hypertension, hyperlipidemia, tubular adenoma of the colon, asthma, idiopathic constipation and aortic stenosis presenting for hospital follow up. Patient was hospitalized 06/14/2024 to 06/15/2024 for acute asthma exacerbation. Testing for RSV/COVID/flu negative. Chest x-ray negative. She was discharged on Breo and prednisone. She is taking 40 mg x 5 days then 20 mg x 5 days. She has required multiple courses of prednisone within the last few months. Denies shortness of breath. She has not needed her rescue inhaler though she is still wheezing at times. She still coughs but it is better. No fevers or chills. No chest pain. She has a pulmonary consult next Friday. She needs a referral to the photo lab specialist in [place]. She was not able to schedule with the [place] office. She is a nonsmoker. PFTs recently consistent with asthma. ROS: Constitutional: No unexplained weight loss, fever, chills, fatigue or night sweats. Eyes: No vision changes, blurry vision, double vision, eye pain, eye redness, eye discharge. ENT: No hearing loss, sneezing, congestion, runny nose or sore throat. Respiratory: No hemoptysis or sputum production. See HPI Cardiovascular: No chest pain, chest pressure or chest discomfort. No palpitations or pedal edema. Skin: see HPI Physical exam: Constitutional: Alert, in no distress. Eyes: Pupils are equal, round and reactive to light. Extraocular muscles intact. Ear, Nose and Throat: Ear canals dry. TMs normal. Normal nasal mucosa. No nasal discharge. No oral lesions. Neck: Supple, Full range of motion. No lymphadenopathy. No palpable thyroid masses. Respiratory: Patient has expiratory wheezes in the posterior lung mixon. Occasional dry cough. Not dyspneic. Cardiovascular: S1 S2 regular. II/ systolic murmur. Extremities: Warm and well perfused. No clubbing, cyanosis or edema. Psychiatric: Normal mood and affect [facility] Medical History Diarrhea Right-sided back pain Acute right flank pain Otitis media Muscle strain Neck pain Back pain Murmur Right otitis media Encounter for well woman exam with routine gynecological exam Controlled type 2 diabetes mellitus Dermatitis of ear canal Breast cancer screening by mammogram Screening for cervical cancer Screening for colon cancer Adult general medical examination Bunion Essential hypertension Surgical History History of esophagogastroduodenoscopy (EGD) Hx of tonsillectomy History of colonoscopy with polypectomy Hx of section Family History Mother Diabetes Brother Diabetes Sister Diabetes Social History Housing: Apartment Alcohol intake: never Patient Tobacco Use Status: Never used Tobacco e-Cigarette/Vaping Use: Never Used Second Hand Smoke Exposure: No service: No Current occupational status: employed Current occupational exposures/hazards: No Sexual orientation: Straight/Heterosexual Gender identity: Female Cognitive needs: No Hearing needs: No Vision needs: No Female Reproductive History Menstrual Age of Menarche: 12 Questionnaire PHQ-9 Over the last 2 weeks, how often have you been bothered by any of the following problems? 1. Little interest or pleasure in doing things: not at all 2. Feeling down, depressed, or hopeless: not at all 3. Trouble falling or staying asleep, or sleeping too much: not at all 4. Feeling tired or having little energy: not at all 5. Poor appetite or overeating: not at all 6. Feeling bad about yourself - or that you are a failure or have let yourself or your family down: not at all 7. Trouble concentrating on things, such as reading the newspaper or watching television: not at all 8. Moving or speaking so slowly that other people could have noticed. Or the opposite - being so fidgety or restless that you have been moving around a lot more than usual: not at all 9. Thoughts that you would be better off or of hurting yourself in some way: not at all Total score: 0 60374 - PHQ-9 Billing: Yes Source: Developed by Drs. Jaime Stephens, Halle Guevara, Hola Harmon and colleagues, with an educational socorro from [employer]. Thrive Questionnaire Date Thrive assessed: 06/24/24 I am a: Patient What is your living situation today?: I have a steady place to live Within the past 12 months, did the food you bought not last and you didn't have the money to get more?: I choose not to answer this question Within the past 12 months, did you worry whether your food would run out before you got money to buy more?: I choose not to answer this question Do you have trouble paying for medicines?: No Do you have trouble getting transportation to medical appointments?: No Do you have trouble paying your heating and electricity bill?: No Do you have trouble taking care of your child, family member or friend?: No Do you have trouble with day-to-day activities such as bathing, preparing meals, shopping, managing finances, etc.?: No Are you currently unemployed and looking for a job?: No Are you interested in more education?: No Please select the resources that you would like help with: None Currently or been in a relationship where the following occur: I choose not to answer THRIVE Score: 0 AUDIT C Alcohol Use Questionnaire (AUDIT-C) 1. How often do you have a drink containing alcohol?: Never Total Score: 0 GOKUL-7 AMB Questionnaire GOKUL-7 Date GOKUL - 7 assessed: 06/24/24 Feeling nervous, anxious, or on edge: 0 = Not at all Not being able to stop or control worryin = Not at all Worrying too much about different things: 0 = Not at all Trouble relaxin = Not at all Being so restless that it is hard to sit still: 0 = Not at all Becoming easily annoyed or irritable: 0 = Not at all Feeling afraid as if something awful might happen: 0 = Not at all Total GOKUL-7 score (0-4 normal; 5-9 mild; 10-14 moderate; 15-21 severe): 0 Source: Developed by Drs. Jaime Stephens, Halle Guevara, Hola Harmon and colleagues, with an educational socorro from [employer]. GOKUL-7 Assessment Billing GOKUL-7 Assessment Tool: GOKUL-7 Assessment 35214 Physical exam (Primary Care) Vital Signs: Last Vital Signs Pulse 58 06/24/24 10:53 Resp 13 06/24/24 10:53 BP 112/68 06/24/24 10:53 Pulse Ox 96 06/24/24 10:53 Oxygen Delivery Method Room Air 06/24/24 10:53 BMI result Body Mass Index 28.7 Tobacco/Smoking Status: Tobacco use Status Tobacco use date assessed 07/25/23 06/24/24 10:50 Patient Tobacco Use Status Never used Tobacco 06/24/24 10:50 e-Cigarette/Vaping Use Never Used 06/24/24 10:50 PHQ-9: PHQ-9 Score PHQ-9: Total score 0 06/24/24 11:27 Thrive Assessment: Date of Thrive Assessment Date Thrive assessed 06/24/24 06/24/24 10:50 Currently or been in a relationship where the following occur: I choose not to answer Coding Level of Care Code Est Pt Level 4 (35508) Complex EM visit Add On G2211 Diagnoses Asthma exacerbation J45.901 Additional Codes GOKUL-7 Assessment Billing - GOKUL-7 Assessment Tool: GOKUL-7 Assessment 00503 ([id number]) PHQ-9 - 95905 - PHQ-9 Billing: Yes ([id number]) Assessment & Plan Assessment & Plan (1) Asthma exacerbation: Code(s): J45.901 - Unspecified asthma with (acute) exacerbation Plan Patient is status post admission for asthma exacerbation. She will continue Breo which was started at the hospital. I sent a refill to the pharmacy. Continue Zyrtec. [facility] Albuterol vials sent to pharmacy. Advised patient to use rescue inhaler or nebulizer every 4 hours as needed for coughing, wheezing or shortness of breath. I advised her to use it at least twice daily for the next 5 days. I am also extending her prednisone taper. Warning signs warranting re-evaluation at ED and office reviewed with the patient. She has an appointment with pulmonology next week and she has also been referred to Allergy and immunology. Medications: New nebulizer and compressor As directed 1 ea 0RF J45.21 - Mild intermittent asthma with (acute) exacerbation albuterol sulfate 2.5 mg (3 mL) inhalation Q4H PRN 180 mL 0RF cough, wheezing and shortness of breath nebulizer accessories As directed 1 ea 0RF J45.21 - Mild intermittent asthma with (acute) exacerbation nebulizer accessories As directed 1 ea 0RF J45.21 - Mild intermittent asthma with (acute) exacerbation prednisone Take 2 tablets once daily for 5 days, then take 1 tablet once daily for 5 days, then stop. 15 tabs 0RF nebulizer and compressor As directed 1 ea 0RF J45.21 - Mild intermittent asthma with (acute) exacerbation Refilled fluticasone furoate-vilanterol 200-25 mcg/dose (Breo Ellipta) 1 inh inhalation RDAILY 60 ea 5RF
[2024-06-24 10:53] VITALS: BP 112/68; PULSE 58; RESP 13; O2SAT 96; BMI 28.7
== END 2024-06-24 11:46 | disposition home or self-care (01) ==
PROVIDERS: PCP Physician Assistant Medical; Visit Provider Physician Assistant Medical
DX: J45.901 Unspecified asthma with (acute) exacerbation (principal)

== ENCOUNTER → 2024-06-24 10:47 | Outpatient (BNVA) | payer OTHER, SELFPAY | PROVIDERS: PCP Physician Assistant Medical; Visit Provider Physician Assistant Medical | DX: J45.21 Mild intermittent asthma with (acute) exacerbation (principal); E11.9 Type 2 diabetes mellitus without complications; I10 Essential (primary) hypertension | CPT/HCPCS: 96127; 99212 ==

== ENCOUNTER 2024-07-02 09:43 | Outpatient (AMB) | payer OTHER, SELFPAY ==
--- NOTE | 2024-07-02 09:48 | A.OFFVIS_ITS ---
Vital Signs 07/02/24 09:49 Height 5 ft 1 in Weight 152 lb BMI 28.7 BP 112/68 Blood Pressure Location Rt brachial Position Sitting Pulse 73 Pulse Source Pulse Oximeter Pulse Oximetry (%) 94 Oxygen Delivery Method Room Air Intake Visit Reasons: Asthma Split Leather Department Supervisor Required: No Bundle Tier And Labeler: Bundle Tier And Labeler offered & declined Accompanied by: Self / Same As Patient Allergies milk Allergy (Verified 07/02/24 09:53) Unknown Medication List - Last Reconciled 07/02/24 by Alyssa Cancino LPN albuterol sulfate 90 mcg/actuation 2 inhalations inhalation Q4H PRN albuterol sulfate 2.5 mg (3 mL) inhalation Q4H PRN atorvastatin 20 mg PO BEDTIME 90 days cetirizine 10 mg PO DAILY 90 days famotidine 40 mg PO BEDTIME fluticasone furoate-vilanterol 200-25 mcg/dose (Breo Ellipta) 1 inh inhalation RDAILY ibuprofen 600 mg PO Q8H PRN 14 days inhalational spacing device (Space Chamber) As directed with inhaler lisinopril 20 mg PO DAILY 90 days nebulizer accessories As directed nebulizer and compressor As directed prednisone Take 2 tablets once daily for 5 days, then take 1 tablet once daily for 5 days, then stop. semaglutide (Ozempic) 0.5 mg subcut FR HPI HPI Asthma: Details: Keli is a pleasant 58 year old female, never smoker, with underlying asthma, GERD, HTN, DMII and mild aortic stenosis. She was referred by PCP for pulmonary evaluation for worsening asthma control. She was seen at [facility] ED on two occasions, once in April and again in May, discharged with prednisone on both occasions. She was then seen at PCP office on 06/24 with persistent dyspnea, dry cough and wheezing, placed on prednisone again. She has one more day left of prednisone. During this time she was also started on Breo and albuterol MDI. She was also prescribed a nebulizer however never received. She feels symptoms have improved since being on prednisone however continues with wheezing and dry cough. She denies dyspnea or chest tightness. She notes symptoms were intermittent in the past and triggered by allergies, started initially 6 years ago but worsened over the last few months. She has a referral to an automation technician placed and will be evaluted later this month. She denies any pets at home. She denies any occupational exposures. She reports mother and brother with asthma. [facility] Medical History Diarrhea Right-sided back pain Acute right flank pain Otitis media Muscle strain Neck pain Back pain Murmur Right otitis media Encounter for well woman exam with routine gynecological exam Controlled type 2 diabetes mellitus Dermatitis of ear canal Breast cancer screening by mammogram Screening for cervical cancer Screening for colon cancer Adult general medical examination Bunion Essential hypertension Surgical History History of esophagogastroduodenoscopy (EGD) Hx of tonsillectomy History of colonoscopy with polypectomy Hx of section Family History Mother Diabetes Brother Diabetes Sister Diabetes Social History Housing: Apartment Alcohol intake: never Patient Tobacco Use Status: Never used Tobacco e-Cigarette/Vaping Use: Never Used Second Hand Smoke Exposure: No service: No Current occupational status: employed Current occupational exposures/hazards: No Sexual orientation: Straight/Heterosexual Gender identity: Female Cognitive needs: No Hearing needs: No Vision needs: No Female Reproductive History Menstrual Age of Menarche: 12 Review of Systems Const Denies chills, Denies excessive sweating, Denies fever(s), Denies headache(s) and Denies night sweats Eyes Denies dry eyes, Denies irritation and Denies itchy eyes ENT Reports Normal hearing present, Denies headache(s), Denies nasal congestion, Denies nasal discharge, Denies post nasal drip and Denies sore throat Card Denies chest pain, Denies chest pain at rest, Denies chest pain with activity, Denies claudication, Denies leg edema, Denies dyspnea, Denies dyspnea on exertion, Denies orthopnea and Denies paroxysmal nocturnal dyspnea Resp Denies chest congestion, Denies excessive phlegm production, Denies pain on inspiration, Denies pain with cough, Denies dyspnea, Denies dyspnea on exertion and Denies stridor Musc Denies myalgias Neuro Reports Normal hearing present and Denies headache(s) Endo Denies excessive sweating Coy/Lymph Denies lymphadenopathy Aller/Immun Denies itchy eyes and Denies seasonal rhinorrhea Physical Exam Vital Signs: Last Vital Signs Pulse 73 07/02/24 09:49 BP 112/68 07/02/24 09:49 Pulse Ox 94 07/02/24 09:49 Oxygen Delivery Method Room Air 07/02/24 09:49 BMI result Body Mass Index 28.7 Const General: cooperative, healthy appearing, comfortable, no acute distress, well developed and alert Orientation/consciousness: patient oriented x3 Limitations: no limitations HEENT Head: Yes normal to inspection, Yes normocephalic and Yes atraumatic Ears: hearing grossly normal bilaterally and external ears normal Eyes General: appearance normal, both eyes and all related structures Eyelids: Yes eyelids normal Sclerae: sclerae normal EOM: EOMs intact bilaterally Neck Neck: Yes normal visual inspection and Yes no lymphadenopathy Lymphatic: no lymphadenopathy noted Chest Chest palpation & inspection: normal inspection of the chest Resp Other: postexhalation cough during exam, improved with DuoNeb Effort & Inspection: normal respiratory effort, able to speak in complete sentences, no audible wheezes, no cough, no stridor, not tachypneic, no tripod positioning and no use of accessory muscles Auscultation: diminished lung sounds Cardio Jugular venous distension: no JVD Rate: regular rate Rhythm: regular rhythm Skin Other: warm, dry General skin exam: no rashes or lesions noted Neuro General: patient oriented x3 Cranial nerves: Yes Normal hearing present Cognition (Neuro): normal cognition Gait exam (Neuro): Normal gait present Extrem General: Yes normal to inspection, Yes capillary refill normal, Yes no clubbing, cyanosis or edema and Yes no pedal edema Psych Appearance: grossly normal and well kempt Speech and movement: Normal speech and movement present and Clear speech present Affect: normal affect Attitude: cooperative Thought process: Normal thought process present Thought content: Normal thought content present Insight: Good insight present (Psych) Judgement: Good judgement present (Psych) Assessment & Plan Assessment & Plan (1) Asthma: Code(s): J45.909 - Unspecified asthma, uncomplicated Category: Medical Qualifiers: Asthma severity: mild Asthma persistence: intermittent Asthma complication type: with acute exacerbation Qualified Code(s): J45.21 - Mild intermittent asthma with (acute) exacerbation (2) Cough: Code(s): R05 - Cough Category: Medical (3) Environmental allergies: Code(s): Z91.09 - Other allergy status, other than to drugs and biological substances Category: Medical Plan Keli presents for pulmonary evaluation for new onset asthma. Will send for PFT and RAST to evaluate. Likely an allergic component as prior eosinophils significantly elevated at 23. Will send an order for nebulizer for home use. Advised to continue Breo and use albuterol MDI more frequently. Will reasses at next visit. All questions were answered and patient is in agreement of plan. Will follow up in 4-6 weeks or sooner if needed. Orders: Orders Immunoglobulin E Today Z91.09 - Other allergy status, other than to drugs and biological substances Resp Allergy Profile Region I Today Z91.09 - Other allergy status, other than to drugs and biological substances PFT pulmonary function test Today J45.21 - Mild intermittent asthma with (acute) exacerbation AMB Nebulizer Treatment Today J45.21 - Mild intermittent asthma with (acute) exacerbation, R05 - Cough Medications: New ipratropium-albuterol 0.5 mg-3 mg(2.5 mg base)/3 mL 3 mL inhalation ONCE 3 mL 0RF J45.21 - Mild intermittent asthma with (acute) exacerbation, R05 - Cough Coding Level of Care Code New Pt Level 4 (01778) Diagnoses Mild intermittent asthma with acute exacerbation J45.21 Asthma severity: mild Asthma persistence: intermittent Asthma complication type: with acute exacerbation Cough R05 Environmental allergies Z91.09
[2024-07-02 09:49] VITALS: BP 112/68; PULSE 73; O2SAT 94; BMI 28.7
== END 2024-07-02 11:18 | disposition home or self-care (01) ==
PROVIDERS: PCP Physician Assistant Medical; Visit Provider Nurse Practitioner Family
DX: J45.21 Mild intermittent asthma with (acute) exacerbation (principal); R05.9 Cough, unspecified; Z91.09 Other allergy status, other than to drugs and biological substances
CPT/HCPCS: 99204

== ENCOUNTER 2024-07-02 10:36 | Outpatient (REF) | payer OTHER, SELFPAY ==
[2024-07-06 21:43] LABS: Class Alternaria alternata 0; Class Aspergillus fumigatus 0; Class Bermuda Grass 0; Class Birch 0; Class Cat Dander 0; Class Cladosporium herbarum 0; Class Cockroach 0; Class Common Ragweed 2; Class Cottonwood 0; Class Derm. pterony 0; Class Dermatophagoides farinae 0; Class Dog Dander 0; Class Elm 0; Class Maple Box Elder 0; Class Mountain Cedar 0; Class Mouse Urine Protein 0; Class Mugwort 0; Class Oak 0; Class Penicillium crysogenum 0; Class Rough Pigweed 0; Class Sheep Sorrel 0; Class Sycamore 0; Class Timothy Grass 0; Class Walnut Tree 0; Class White Ash 0; Class White Mulberry 0; D001 IgE D pteronyssinus <0.10 kU/L; D002 - IgE D farinae <0.10 kU/L; E001 - IgE Cat Dander <0.10 kU/L; E005 - IgE Dog Dander <0.10 kU/L; E072-IgE Mouse Urine <0.10 kU/L; G002 IgE Bermuda Grass <0.10 kU/L; G006 - IgE Timothy Grass <0.10 kU/L; I006-IgE Cockroach, German <0.10 kU/L; Immunoglobulin E 79 kU/L (<OR=114); M001 IgE Penicillium chrysogen <0.10 kU/L; M002 - IgE Cladosporium herbar <0.10 kU/L; M003 - IgE Aspergillus fumigat <0.10 kU/L; M006 - IgE Alternaria alternat <0.10 kU/L; T001 IgE Maple/Box Elder <0.10 kU/L; T003 IgE Common Silver Birch <0.10 kU/L; T006 - IgE Cedar, Mountain <0.10 kU/L; T007 - IgE Oak, White <0.10 kU/L; T008 IgE Elm, American <0.10 kU/L; T010 - IgE Walnut <0.10 kU/L; T011 - IgE Maple Leaf Sycamore <0.10 kU/L; T014 - IgE Cottonwood <0.10 kU/L; T015 - IgE Ash, White <0.10 kU/L; T070 - IgE White Mulberry <0.10 kU/L; W001 - IgE Ragweed, Short 2.78 kU/L; W006 - IgE Mugwort <0.10 kU/L; W014 IgE Pigweed, Common <0.10 kU/L; W018 IgE Sheep Sorrel <0.10 kU/L
== END 2024-07-02 10:37 | disposition home or self-care (01) ==
LOC: HO.WFDLDS 10:36
PROVIDERS: Visit Provider Nurse Practitioner Family
DX: J45.21 Mild intermittent asthma with (acute) exacerbation (principal); R05.9 Cough, unspecified; Z91.09 Other allergy status, other than to drugs and biological substances
CPT/HCPCS: 36415; 82785; 86003; 94640; 99202

== ENCOUNTER 2024-08-13 13:36 | Outpatient (AMB) | payer OTHER, SELFPAY ==
[2024-08-13 13:41] VITALS: BP 112/60; PULSE 64; O2SAT 98; BMI 28.5
--- NOTE | 2024-08-13 13:41 | MHC.OFFVIS ---
Vital Signs 08/13/24 13:41 Height 5 ft 1 in Weight 151 lb BMI 28.5 BP 112/60 Blood Pressure Location Lt brachial Position Sitting Pulse 64 Pulse Source Pulse Oximeter Pulse Oximetry (%) 98 Oxygen Delivery Method Room Air Intake Visit Reasons: Asthma Infectious Diseases Physician Required: No Toe Lining Closer: Toe Lining Closer offered & declined Accompanied by: Self / Same As Patient Allergies milk Allergy (Verified 08/13/24 13:46) Unknown Medication List - Last Reconciled 08/13/24 by Alyssa Cancino LPN albuterol sulfate 90 mcg/actuation 2 inhalations inhalation Q4H PRN albuterol sulfate 2.5 mg (3 mL) inhalation Q4H PRN atorvastatin 20 mg PO BEDTIME 90 days cetirizine 10 mg PO DAILY 90 days famotidine 40 mg PO BEDTIME [id number]-[id number]-cyqvwoir 200-62.5-25 mcg (Trelegy Ellipta) 1 inh inhalation Q24H ibuprofen 600 mg PO Q8H PRN 14 days inhalational spacing device (Space Chamber) As directed with inhaler lisinopril 20 mg PO DAILY 90 days nebulizer accessories As directed nebulizer and compressor As directed prednisone Take 2 tablets once daily for 5 days, then take 1 tablet once daily for 5 days, then stop. semaglutide (Ozempic) 0.5 mg subcut FR HPI HPI Asthma: Details: Keli is a pleasant 59 year old female, never smoker, with underlying asthma, GERD, HTN, DMII and mild aortic stenosis. She was initially referred by PCP for pulmonary evaluation for worsening asthma control. Since the last visit, she was evaluated by warning coordination meteorologist, revealing allergies to ragweed and trees. She was also switched from Breo to Trelegy with good effect. She currently denies any respiratory symptoms. Today she presents to review PFT results. She denies any visits to urgent care or hospitalizations since the last visit. [facility] Medical History Diarrhea Right-sided back pain Acute right flank pain Otitis media Muscle strain Neck pain Back pain Murmur Right otitis media Encounter for well woman exam with routine gynecological exam Controlled type 2 diabetes mellitus Dermatitis of ear canal Breast cancer screening by mammogram Screening for cervical cancer Screening for colon cancer Adult general medical examination Bunion Essential hypertension Surgical History History of esophagogastroduodenoscopy (EGD) Hx of tonsillectomy History of colonoscopy with polypectomy Hx of section Family History Mother Diabetes Brother Diabetes Sister Diabetes Social History Housing: Apartment Alcohol intake: never Patient Tobacco Use Status: Never used Tobacco e-Cigarette/Vaping Use: Never Used Second Hand Smoke Exposure: No service: No Current occupational status: employed Current occupational exposures/hazards: No Sexual orientation: Straight/Heterosexual Gender identity: Female Cognitive needs: No Hearing needs: No Vision needs: No Female Reproductive History Menstrual Age of Menarche: 12 Review of Systems Const Denies chills, Denies excessive sweating, Denies fever(s), Denies headache(s) and Denies night sweats Eyes Denies dry eyes, Denies irritation and Denies itchy eyes ENT Reports Normal hearing present and Denies headache(s) Card Denies chest pain, Denies chest pain at rest, Denies chest pain with activity, Denies claudication, Denies leg edema, Denies dyspnea, Denies dyspnea on exertion, Denies orthopnea and Denies paroxysmal nocturnal dyspnea Resp Denies chest congestion, Denies cough, Denies excessive phlegm production, Denies pain on inspiration, Denies pain with cough, Denies dyspnea, Denies dyspnea on exertion, Denies stridor and Denies wheezing Musc Denies myalgias Neuro Reports Normal hearing present and Denies headache(s) Endo Denies excessive sweating Coy/Lymph Denies lymphadenopathy Aller/Immun Denies itchy eyes, Denies seasonal rhinorrhea and Denies wheezing Physical Exam Vital Signs: Last Vital Signs Pulse 64 08/13/24 13:41 BP 112/60 08/13/24 13:41 Pulse Ox 98 08/13/24 13:41 Oxygen Delivery Method Room Air 08/13/24 13:41 BMI result Body Mass Index 28.5 Const General: cooperative, healthy appearing, comfortable, no acute distress, well developed and alert Orientation/consciousness: patient oriented x3 Limitations: no limitations HEENT Head: Yes normal to inspection, Yes normocephalic and Yes atraumatic Ears: hearing grossly normal bilaterally and external ears normal Eyes General: appearance normal, both eyes and all related structures Eyelids: Yes eyelids normal Sclerae: sclerae normal EOM: EOMs intact bilaterally Neck Neck: Yes normal visual inspection and Yes no lymphadenopathy Lymphatic: no lymphadenopathy noted Chest Chest palpation & inspection: normal inspection of the chest Resp Effort & Inspection: normal respiratory effort, able to speak in complete sentences, no audible wheezes, no cough, no stridor, not tachypneic, no tripod positioning and no use of accessory muscles Auscultation: clear to auscultation bilaterally Cardio Jugular venous distension: no JVD Rate: regular rate Rhythm: regular rhythm Skin Other: warm, dry General skin exam: no rashes or lesions noted Neuro General: patient oriented x3 Cranial nerves: Yes Normal hearing present Cognition (Neuro): normal cognition Gait exam (Neuro): Normal gait present Extrem General: Yes normal to inspection, Yes capillary refill normal, Yes no clubbing, cyanosis or edema and Yes no pedal edema Psych Appearance: grossly normal and well kempt Speech and movement: Normal speech and movement present and Clear speech present Affect: normal affect Attitude: cooperative Thought process: Normal thought process present Thought content: Normal thought content present Insight: Good insight present (Psych) Judgement: Good judgement present (Psych) Assessment & Plan Assessment & Plan (1) Asthma: Code(s): J45.909 - Unspecified asthma, uncomplicated Category: Medical Qualifiers: Asthma complication type: with acute exacerbation Asthma persistence: intermittent Asthma severity: mild Qualified Code(s): J45.21 - Mild intermittent asthma with (acute) exacerbation (2) Environmental allergies: Code(s): Z91.09 - Other allergy status, other than to drugs and biological substances Category: Medical Plan Reviewed PFT which revealed combined moderate obstructive and restrictive ventilatory defects with positive bronchodilator response. Decreased expiratory reserve volume suggests extrathoracic restriction likely secondary to abdominal obesity. DLCO normal. CXR unremarkable. RAST + ragweed. Advised to continue Trelegy as she notes excellent control of symptoms. All questions were answered and patient is in agreement of plan. Will follow up in 6 months or sooner if needed. Coding Level of Care Code Est Pt Level 4 (26952) Diagnoses Mild intermittent asthma with acute exacerbation J45.21 Asthma complication type: with acute exacerbation Asthma persistence: intermittent Asthma severity: mild Environmental allergies Z91.09
--- OUTSIDE RECORDS SUMMARY | 2024-08-13 14:06 | XMS_ITS | Clinical Summary ---
Author Organization [employer] Address [address] [place] [address] Care Team Providers Care Health Actuary Name Role Phone Unavailable Primary Care Provider Unavailabl e Social History Tobacco Use Types Packs/Day Years Used Date Smoking Tobacco: Never Assessed Comments Unknown Sex and Gender Information Value Date Recorded Sex Assigned at Female 04/22/2022 10:36 AM EDT Legal Sex Female 10:36 AM EDT Gender Identity Not on file Sexual Orientation Not on file Plan of Treatment Health Maintenance Due Date Last Done Comments CT Colonography 1965 Colonoscopy 1965 Colorectal Cancer Screening 1965 Depression Screening 1965 FIT DNA/Cologuard 1965 FIT 1965 FOBT 1965 Sigmoidoscopy 1965 Alcohol/Substance Use Screening 1977 Tobacco Screening 1977 DTaP/Tdap/Td Vaccines (1 - Tdap) 1984 Hepatitis B Vaccines (1 of 3 - 19+ 3-dose series) 1984 Pap Smear 1986 Cervical Cancer Screening 1995 HPV/Cotest 1995 Mammogram 2005 Pneumococcal Vaccine: 50+ Ye ars (1 of 1 - PCV) 2015 Zoster Vaccines (1 of 2) 2015 COVID-19 Vaccine ( - 2023-2 5 season) 2024 Influenza Vaccine (#1) 2024 RSV Patients and Pa tients Aged 60 years or older (1 - 1-dose 75+ series) 2040 HIB Vaccines Aged Out No longer eligi ble based on patient's age to complete this topic HPV Vaccines Aged Out No longer eligi ble based on patient's age to complete this topic Hepatitis A Vaccines Aged Out No long er eligible based on patient's age to complete this topic IPV Vaccines Aged Out No longer eligi ble based on patient's age to complete this topic Meningococcal Vaccine Aged Out No raymundo awilda eligible based on patient's age to complete this topic Pneumococcal Vaccine: Pediat rics (0 to 5 Years) and At-Risk Patients (6 to 49) Years) Aged Out No longer eligible b ased on patient's age to complete this topic RSV under 20 months Aged Out No longe r eligible based on patient's age to complete this topic Rotavirus Vaccines Aged Out No longer eligible based on patient's age to complete this topic
--- OUTSIDE RECORDS SUMMARY | 2024-08-13 14:07 | XMS_ITS | Encounter Summary ---
Author Organization [employer] [facility] Address [address] [place] [address] Care Team Providers Care Visiting Teacher Name Role Phone Unavailable Primary Care Provider Unavailabl e Encounter Details Date Type Department Care Team (Latest Contact Info) Description 06/30/2019 Abstract [facility]HC CONVERSIONS Dental, Provider, DDS Social History Tobacco Use Types Packs/Day Years Used Date Smoking Tobacco: Never Assessed Comments Unknown Sex and Gender Information Value Date Recorded Sex Assigned at Female 04/22/2022 10:36 AM EDT Legal Sex Female 10:36 AM EDT Gender Identity Not on file Sexual Orientation Not on file documented as of this encounter Plan of Treatment Not on file documented as of this encounter Visit Diagnoses Not on filedocumented in this encounter
== END 2024-08-13 14:02 | disposition home or self-care (01) ==
PROVIDERS: PCP Physician Assistant Medical; Visit Provider Nurse Practitioner Family
DX: J45.21 Mild intermittent asthma with (acute) exacerbation (principal); Z91.09 Other allergy status, other than to drugs and biological substances
CPT/HCPCS: 99214

== ENCOUNTER → 2024-08-13 13:36 | Outpatient (BNVA) | payer OTHER, SELFPAY | PROVIDERS: PCP Physician Assistant Medical; Visit Provider Nurse Practitioner Family | DX: J45.21 Mild intermittent asthma with (acute) exacerbation (principal); Z91.09 Other allergy status, other than to drugs and biological substances | CPT/HCPCS: 99212 ==

== ENCOUNTER 2024-09-23 14:37 | Outpatient (AMB) | payer OTHER, SELFPAY ==
--- NOTE | 2024-09-23 14:40 | A.OFFPC_ITS ---
Vital Signs 09/23/24 14:59 Height 5 ft 1 in Weight 152 lb BMI 28.7 BP 110/80 Blood Pressure Location Rt brachial Respiration 14 Pulse 78 Pulse Source Pulse Oximeter Pulse Oximetry (%) 97 Oxygen Delivery Method Room Air Intake Visit Reasons: f/u asthma Intake Note: Asthma follow up Meeting Planner Required: No Allergies milk Allergy (Verified 09/23/24 14:55) Unknown Tobacco use date assessed: 09/23/24 Dental Screening Dental Screen Date: 01/22/23 HPI HPI Comments History of Present Illness Details This is a 58-year-old female with a past medical history of Type II DM, hypertension, hyperlipidemia, tubular adenoma of the colon, asthma, idiopathic constipation and aortic stenosis presenting for follow up. HTN-Treated with lisinopril 20 mg. Hyperlipidemia is treated with atorvastatin 20 mg. Her LDL cholesterol is under 100. She had a colonoscopy in 2021 at [facility]. She had tubular adenomas. Repeat in 2024 advised. She reached out to the Gastroenterology office to schedule the colonoscopy, and she has an appointment scheduled tomorrow for follow up. Aortic stenosis-no dizziness, chest pain, leg swelling or syncope. She is due for an echocardiogram in 2024. Asthma- followed by pulmonology. Her asthma has been doing well. No interval ER visit or hospitalization. Patient is on Trelegy and albuterol as needed. She was diagnosed with type 2 diabetes in 01/10/2024 with a hemoglobin A1c of 6.7%. She started Ozempic 0.25 mg once weekly, and she titrated to 1 mg weekly. Denies side effects. She would like to increase the dose to help with weight loss. She has a strong family history of diabetes. For a couple of months she has had pain in her right knee and in her right hand. The hand pain is mostly around the 2nd knuckle and index finger. No history of trauma. No swelling, numbness, tingling, weakness or discoloration. Applying heating pads alleviates the pain somewhat. No tick bites or skin rashes. ROS: Constitutional: No unexplained weight loss, fever, chills, fatigue or night sweats. Eyes: No vision changes, blurry vision, double vision, eye pain, eye redness, eye discharge. ENT: No hearing loss, sneezing, congestion, runny nose or sore throat. Respiratory: No cough, wheezing, shortness of breath. Cardiovascular: No chest pain, chest pressure or chest discomfort. No palpitations or pedal edema. Gastrointestinal: No anorexia, nausea, vomiting or diarrhea. No abdominal pain or blood in stool. Endocrine: No cold or heat intolerance. No polyuria or polydipsia. Physical exam: Constitutional: Alert, in no distress. Head: Normocephalic. Neck: Supple, Full range of motion. No lymphadenopathy. Respiratory: Clear to auscultation. Cardiovascular: S1 S2 regular. 2/6 systolic murmur. Neurologic: No focal neurological deficits. Moves all extremities spontaneously. Intact sensation of the upper and lower extremities. Musculoskeletal: There is crepitus with range of motion exercises of the right knee. There is no laxity of the knee joints. There is very mild swelling of the anteromedial compartment of the right knee. This area is mildly tender to palpation. There is no warmth or redness. The right 2nd MCP and proximal 2nd phalanx are tender to palpation. There is no visible hand swelling, redness or discoloration. Handgrip strength is 5/5 bilaterally. Extremities: Warm and well perfused. Radial and dorsalis pedis pulses are symmetric bilaterally. Psychiatric: Normal mood and affect [facility] Medical History (Updated 09/24/24 @ 08:25 by SYBIL Berry) Right hand pain Right knee pain Diarrhea Right-sided back pain Acute right flank pain Otitis media Muscle strain Neck pain Back pain Murmur Right otitis media Encounter for well woman exam with routine gynecological exam Controlled type 2 diabetes mellitus Dermatitis of ear canal Breast cancer screening by mammogram Screening for cervical cancer Screening for colon cancer Adult general medical examination Bunion Essential hypertension Surgical History History of esophagogastroduodenoscopy (EGD) Hx of tonsillectomy History of colonoscopy with polypectomy Hx of section Family History Mother Diabetes Brother Diabetes Sister Diabetes Social History Housing: Apartment Alcohol intake: never Patient Tobacco Use Status: Never used Tobacco e-Cigarette/Vaping Use: Never Used Second Hand Smoke Exposure: No service: No Current occupational status: employed Current occupational exposures/hazards: No Sexual orientation: Straight/Heterosexual Gender identity: Female Cognitive needs: No Hearing needs: No Vision needs: No Female Reproductive History Menstrual Age of Menarche: 12 Questionnaire Thrive Questionnaire Date Thrive assessed: 06/24/24 I am a: Patient What is your living situation today?: I have a steady place to live Within the past 12 months, did the food you bought not last and you didn't have the money to get more?: I choose not to answer this question Within the past 12 months, did you worry whether your food would run out before you got money to buy more?: I choose not to answer this question Do you have trouble paying for medicines?: No Do you have trouble getting transportation to medical appointments?: No Do you have trouble paying your heating and electricity bill?: No Do you have trouble taking care of your child, family member or friend?: No Do you have trouble with day-to-day activities such as bathing, preparing meals, shopping, managing finances, etc.?: No Are you currently unemployed and looking for a job?: No Are you interested in more education?: No Please select the resources that you would like help with: None Currently or been in a relationship where the following occur: I choose not to answer THRIVE Score: 0 AUDIT C Alcohol Use Questionnaire (AUDIT-C) 1. How often do you have a drink containing alcohol?: Never 3. How often do you have six or more drinks on one occasion?: Never Total Score: 0 GOKUL-7 AMB Questionnaire GOKUL-7 Date GOKUL - 7 assessed: 06/24/24 Source: Developed by Drs. Jaime Stephens, Halle Guevara, Hola Harmon and colleagues, with an educational socorro from [employer]. ACT Questionnaire In the past 4 weeks, how much of the time did your asthma keep you from getting as much done at work, school or at home?: None of the time During the past 4 weeks, how often have you had shortness of breath?: Not at all During the past 4 weeks, how often did your asthma symptoms wake you up at night or earlier than usual in the morning?: Not at all During the past 4 weeks, how often have you had to use your rescue inhaler or nebulizer medication?: Not at all How would you rate your asthma control during the past 4 weeks?: Well controlled ACT Interpretation: Negative Score: 24 Physical exam (Primary Care) Vital Signs: Last Vital Signs Pulse 78 09/23/24 14:59 Resp 14 09/23/24 14:59 BP 110/80 09/23/24 14:59 Pulse Ox 97 09/23/24 14:59 Oxygen Delivery Method Room Air 09/23/24 14:59 BMI result Body Mass Index 28.7 Tobacco/Smoking Status: Tobacco use Status Tobacco use date assessed 09/23/24 09/23/24 14:58 Patient Tobacco Use Status Never used Tobacco 09/23/24 14:41 e-Cigarette/Vaping Use Never Used 09/23/24 14:41 Thrive Assessment: Date of Thrive Assessment Date Thrive assessed 06/24/24 09/23/24 14:41 Currently or been in a relationship where the following occur: I choose not to answer Coding Level of Care Code Est Pt Level 4 (69818) Complex EM visit Add On G2211 Diagnoses Chronic pain of right knee M25.561; G89.29 Chronicity: chronic Right hand pain M79.641 Hypercholesterolemia E78.00 Nonrheumatic aortic valve stenosis I35.0 Cardiac valve disease etiology: nonrheumatic Mild intermittent asthma with acute exacerbation J45.21 Asthma severity: mild Asthma persistence: intermittent Asthma complication type: with acute exacerbation Controlled type 2 diabetes mellitus without complication, without long-term current use of insulin E11.9 Diabetes mellitus halfway insulin use: without halfway use Diabetes mellitus complication status: without complication Additional Codes Asthma Control Questionnaire - ACT Interpretation: Negative ([id number]) Assessment & Plan Assessment & Plan (1) Right knee pain: Code(s): M25.561 - Pain in right knee Category: Medical Qualifiers: Chronicity: chronic Qualified Code(s): M25.561 - Pain in right knee; G89.29 - Other chronic pain Plan: Patient previously required orthopedic evaluation and injection for the left knee. Ordered x-ray of the right knee. She can continue to apply warm compresses needed and take acetaminophen 500 to a 1000 mg every 8 hours as needed for pain. Do not exceed more than the recommended amount of acetaminophen. (2) Right hand pain: Code(s): M79.641 - Pain in right hand Category: Medical Plan: Ordered x-ray, rheumatoid factor and Lyme testing. To consider referral to Orthopaedics pending results. (3) Hypercholesterolemia: Code(s): E78.00 - Pure hypercholesterolemia, unspecified Category: Medical Plan: Continue statin. Recommended Mediterranean diet. (4) Aortic stenosis: Code(s): I35.0 - Nonrheumatic aortic (valve) stenosis Category: Medical Qualifiers: Cardiac valve disease etiology: nonrheumatic Qualified Code(s): I35.0 - Nonrheumatic aortic (valve) stenosis Plan: Echocardiogram ordered for surveillance. (5) Asthma: Code(s): J45.909 - Unspecified asthma, uncomplicated Category: Medical Qualifiers: Asthma severity: mild Asthma persistence: intermittent Asthma complication type: with acute exacerbation Qualified Code(s): J45.21 - Mild intermittent asthma with (acute) exacerbation Plan: Followed by pulmonology. Stable. Continue current medications. (6) Controlled type 2 diabetes mellitus: Code(s): E11.9 - Type 2 diabetes mellitus without complications Category: Medical Qualifiers: Diabetes mellitus cafeteria cashier insulin use: without halfway use Diabetes mellitus complication status: without complication Qualified Code(s): E11.9 - Type 2 diabetes mellitus without complications Plan: Recommended annual eye exam, low carb/low sugar diet. Avoid alcohol. Complications reviewed with the patient of type 2 diabetes. Increase Ozempic to 2 mg weekly to promote weight loss. Plan Follow up in 3 months for a physical exam. Orders: Orders XR hand RT min 3V 09/23/24 M79.641 - Pain in right hand Basic Metabolic Panel 09/23/24 E11.9 - Type 2 diabetes mellitus without complications, M25.561 - Pain in right knee, M79.641 - Pain in right hand Rheumatoid Factor 09/23/24 E11.9 - Type 2 diabetes mellitus without complications, M25.561 - Pain in right knee, M79.641 - Pain in right hand CA echo transthoracic complete 09/23/24 I35.0 - Nonrheumatic aortic (valve) stenosis XR knee RT 2V 09/23/24 E11.9 - Type 2 diabetes mellitus without complications, E78.6 - Lipoprotein deficiency, M25.561 - Pain in right knee, M79.641 - Pain in right hand Lyme IgG/IgM w/reflex to WB 09/23/24 E11.9 - Type 2 diabetes mellitus without complications, M25.561 - Pain in right knee, M79.641 - Pain in right hand Complete Blood Count no Diff 09/23/24 E11.9 - Type 2 diabetes mellitus without complications, M25.561 - Pain in right knee, M79.641 - Pain in right hand Hemoglobin A1c 09/23/24 E11.9 - Type 2 diabetes mellitus without complications Medications: New semaglutide (Ozempic) 2 mg (0.75 mL) subcut QWEEK 3 mL 1RF
[2024-09-23 14:59] VITALS: BP 110/80; PULSE 78; RESP 14; O2SAT 97; BMI 28.7
--- OUTSIDE RECORDS SUMMARY | 2024-09-23 16:09 | XMS_ITS | Clinical Summary ---
Author Organization [employer] Address [address] [place] [address] Care Team Providers Care Vending Route Servicer Name Role Phone Unavailable Primary Care Provider [...]
--- OUTSIDE RECORDS SUMMARY | 2024-09-23 16:09 | XMS_ITS | Encounter Summary ---
Author Organization [employer] [facility] Address [address] [place] [address] Care Team Providers Care Upper And Bottom Lacer Hand Name Role Phone Unavailable Primary Care Provider Unavailabl e Encounter Details Date Type Department Care Team (Latest Contact Info) Description 06/30/2019 Abstract C CONVERSIONS Dental, Provider, DDS Social History Tobacco [...]
== END 2024-09-23 15:20 | disposition home or self-care (01) ==
LOC: HO.HMCFM 14:38
PROVIDERS: PCP Physician Assistant Medical; Visit Provider Physician Assistant Medical
DX: M25.561 Pain in right knee (principal); G89.29 Other chronic pain; M79.641 Pain in right hand; E78.00 Pure hypercholesterolemia, unspecified; I35.0 Nonrheumatic aortic (valve) stenosis; J45.21 Mild intermittent asthma with (acute) exacerbation; E11.9 Type 2 diabetes mellitus without complications

== ENCOUNTER → 2024-09-23 14:37 | Outpatient (BNVA) | payer OTHER, SELFPAY | PROVIDERS: PCP Physician Assistant Medical; Visit Provider Physician Assistant Medical | DX: E11.9 Type 2 diabetes mellitus without complications (principal); E78.6 Lipoprotein deficiency; I10 Essential (primary) hypertension; E78.5 Hyperlipidemia, unspecified; K59.04 Chronic idiopathic constipation; I35.0 Nonrheumatic aortic (valve) stenosis; M25.561 Pain in right knee; G89.29 Other chronic pain; M79.641 Pain in right hand; J45.21 Mild intermittent asthma with (acute) exacerbation | CPT/HCPCS: 96160; 99212 ==

== ENCOUNTER 2024-09-23 15:22 | Outpatient (REF) | payer OTHER, SELFPAY ==
--- OUTSIDE RECORDS SUMMARY | 2024-09-23 16:46 | XMS_ITS | Clinical Summary ---
Author Organization [employer] Address [address] [place] [address] Care Team Providers Care Facility Coordinator Name Role Phone Unavailable Primary Care Provider [...]
--- OUTSIDE RECORDS SUMMARY | 2024-09-23 16:46 | XMS_ITS | Encounter Summary ---
Author Organization [employer] [facility] Address [address] [place] [address] Care Team Providers Care Trade Marker Name Role Phone Unavailable Primary Care Provider [...]
[2024-09-23 17:53] LABS: Estimated Average Glucose 120 mg/dL; Hemoglobin A1C 150.4249 umol/L; Hemoglobin A1c % 5.8 % (<6.0); Total Hemoglobin (HGBA1C) 3755.7458 umol/L
[2024-09-23 17:56] LABS: Anion Gap 13 (12-20); Blood Urea Nitrogen 14 mg/dL (9-16); Calcium 9.4 mg/dL (8.4-10.2); Carbon Dioxide 26 mmol/L (22-29); Chloride 107 mmol/L (96-108); Estimated Glomerular Filt Rate > 60; Glucose Random 93 mg/dL (60-115); Potassium 3.8 mmol/L (3.3-5.1); Rheumatoid Factor < 13.0 IU/mL (<15.0); Sodium 142 mmol/L (135-145)
[2024-09-23 18:18] LABS: Hematocrit 41.9 % (37.0-47.0); Hemoglobin 14.1 g/dl (12.0-16.0); Mean Corpuscular HGB Conc 33.7 g/dl (31.0-35.0); Mean Corpuscular Hemoglobin 29.4 pg (27.0-33.0); Mean Corpuscular Volume 87.5 fL (80.0-98.0); Mean Platelet Volume 10.3 fL (9.4-12.3); Platelet Count 267 X10*3/uL (160-400); Red Blood Count 4.79 X10*6/uL (4.20-5.50); Red Cell Distribution Width 11.9 % (11.0-16.0); White Blood Count 4.8 X10*3/uL (4.8-10.8)
[2024-09-24 20:33] LABS: Immunoglobulin E 90 kU/L (<OR=114)
[2024-09-24 22:04] LABS: Lyme Abs Screen <0.90 index
== END 2024-09-23 15:23 | disposition home or self-care (01) ==
LOC: HO.WFDLDS 15:22
PROVIDERS: Referring Provider Nurse Practitioner Family; Visit Provider Physician Assistant Medical
DX: Z91.09 Other allergy status, other than to drugs and biological substances (principal); M79.641 Pain in right hand; E11.9 Type 2 diabetes mellitus without complications; M25.561 Pain in right knee
CPT/HCPCS: 36415; 80048; 82785; 83036; 85027; 86431; 86617; 86618

== ENCOUNTER 2024-09-24 13:14 | Outpatient (AMB) | payer OTHER, SELFPAY ==
[2024-09-24 13:18] VITALS: BP 111/70; PULSE 82; BMI 28.7
--- NOTE | 2024-09-24 13:18 | A.OFFVIS_ITS ---
Vital Signs 09/24/24 13:18 Height 5 ft 1 in Weight 152 lb 1.903 oz BMI 28.7 BP 111/70 Blood Pressure Location Lt brachial Position Sitting Pulse 82 Intake Visit Reasons: follow up [facility] Intake Note: Patient in office today in follow up of [facility]IC. CC: Patient reports doing better and denies having any new GI symptoms or concerns. Fisher Lobster Required: No Accompanied by: Self / Same As Patient Allergies No Known Drug Allergies Allergy (Unknown, Verified 09/24/24 13:26) none milk Allergy (Verified 09/24/24 13:26) Unknown HPI HPI follow up [facility]: Details: Assessment & Plan (1) GERD (gastroesophageal reflux disease): Code(s): K21.9 - Gastro-esophageal reflux disease without esophagitis Category: Medical (2) Tubular adenoma of colon: Comment: 2021 scope 3 polyps 1, 10 mm repeat in 3 years Code(s): D12.6 - Benign neoplasm of colon, unspecified Category: Medical (3) Chronic idiopathic constipation: Code(s): K59.04 - Chronic idiopathic constipation Category: Medical Orders: Orders Colonoscopy - GI Use Only Today D12.6 - Benign neoplasm of colon, unspecified Medications: New lactulose 20 grams (30 mL) PO BEDTIME 237 mL 3RF K59.04 - Chronic idiopathic constipation peg 3350-electrolytes 236-22.74-6.74 -5.86 gram (Golytely) until fecal effluent is clear; do not exceed a total volume of 2,000 mL 240 mL PO Q10M 4,000 mL 0RF 1 day Z12.11 - Encounter for screening for malignant neoplasm of colon bisacodyl (Dulcolax (bisacodyl)) 10 mg (2 x 5 mg) PO BEDTIME 4 tabs 0RF 2 days COLONOSCOPY She has not heard for screening her colonoscopy, I checked and there is a wor kload request and she even called on July 19 to try to book it and the request was re forwarded at that time. BIOPSY TODAY'S VISIT She has continued bloating, she is moving her bowels about 3 times a week which is not enough to keep this symptom at [place]. When she had Linzess she did well but then her co-pay was quite high. She failed senna, could not tolerate lactulose, failed MiraLax, could not tolerate bisacodyl secondary to sweating and nausea, takes a fiber supplement was out sufficient affect, has failed Colace. Amitiza is more readily available in a generic and there is also a discount through [facility]. Return office visit in 8 weeks [facility] Medical History Right hand pain Right knee pain Diarrhea Right-sided back pain Acute right flank pain Otitis media Muscle strain Neck pain Back pain Murmur Right otitis media Encounter for well woman exam with routine gynecological exam Controlled type 2 diabetes mellitus Dermatitis of ear canal Breast cancer screening by mammogram Screening for cervical cancer Screening for colon cancer Adult general medical examination Bunion Essential hypertension Surgical History History of esophagogastroduodenoscopy (EGD) Hx of tonsillectomy History of colonoscopy with polypectomy Hx of section Family History Mother Diabetes Brother Diabetes Sister Diabetes Social History Housing: Apartment Alcohol intake: never Patient Tobacco Use Status: Never used Tobacco e-Cigarette/Vaping Use: Never Used Second Hand Smoke Exposure: No service: No Current occupational status: employed Current occupational exposures/hazards: No Sexual orientation: Straight/Heterosexual Gender identity: Female Cognitive needs: No Hearing needs: No Vision needs: No Female Reproductive History Menstrual Age of Menarche: 12 Review of Systems Const Denies fatigue, Denies fever(s), Denies night sweats, Denies poor appetite and Denies weight loss ENT Reports Normal hearing present, Denies dental pain, Denies dysphagia, Denies hearing loss, Denies mouth pain, Denies odynophagia, Denies throat swelling, Denies tongue swelling and Reports other (Dentition adequate) Card Reports no additional complaints Resp Reports no additional complaints GI Details: Denies abdominal pain, Denies melena, Reports bloating, Denies hematochezia, Reports constipation, Denies GI cramping, Denies dysphagia, Denies excessive flatus, Denies early satiety, Denies heartburn, Denies diarrhea, Denies nausea, Denies odynophagia, Denies vomiting and Denies hematemesis Skin/Breast Denies pruritus, Denies lesions, Denies rash and Denies jaundice Neuro Reports Normal hearing present and Denies Abnormal speech present Endo Denies fatigue Aller/Immun Denies throat swelling and Denies tongue swelling Physical Exam Vital Signs: Last Vital Signs Pulse 82 09/24/24 13:18 BP 111/70 09/24/24 13:18 BMI result Body Mass Index 28.7 Const General: cooperative, no acute distress, well developed and well groomed Nutritional Appearance: well nourished and overweight Orientation/consciousness: oriented to person, oriented to place and oriented to time Limitations: No language barrier HEENT Head: Yes normocephalic and Yes atraumatic Eyes General: appearance normal, both eyes and all related structures Pupils: Equal, round and reactive pupils present Neck Neck: Yes normal visual inspection and Yes no lymphadenopathy Thyroid: Thyroid normal Resp Effort & Inspection: normal respiratory effort and able to speak in complete sentences Auscultation: clear to auscultation bilaterally Cardio Rate: regular rate Rhythm: regular rhythm Heart sounds: Normal, physiologic split S2 sound present Peripheral pulses: radial pulses present and posterior tibial pulses present GI Inspection: No distended and No Abdominal panniculus present Palpation (GI): Soft to palpation, nontender, no guarding, not rigid and No hepatosplenomegaly present Percussion: Yes normal to percussion Auscultation: normal bowel sounds Rectal Exam - Female: deferred Skin General skin exam: no rashes or lesions noted, turgor normal, skin not dry, no jaundice, No spider nevi and no striae Rashes: no rashes Nails: normal Neuro General: oriented to person, oriented to place and oriented to time Cranial nerves: Yes Equal, round and reactive pupils present and Yes Normal hearing present Speech: No Abnormal speech present Extrem General: Yes normal to inspection, No clubbing, No cyanosis and No edema Psych Appearance: grossly normal and well kempt Mental Status: mental status grossly normal Speech and movement: Normal speech and movement present Affect: normal affect Attitude: cooperative Thought process: Normal thought process present and not confabulating Thought content: Normal thought content present Insight: Fair insight present (Psych) Judgement: Fair judgement present (Psych) Assessment & Plan Assessment & Plan (1) Chronic idiopathic constipation: Code(s): K59.04 - Chronic idiopathic constipation Category: Medical Plan She has continued bloating, she is moving her bowels about 3 times a week which is not enough to keep this symptom at [place]. When she had Linzess she did well but then her co-pay was quite high. She failed senna, could not tolerate lactulose, failed MiraLax, could not tolerate bisacodyl secondary to sweating and nausea, takes a fiber supplement was out sufficient affect, has failed Colace. Amitiza is more readily available in a generic and there is also a discount through [facility]. Return office visit in 8 weeks COLONOSCOPY She has not heard for screening her colonoscopy, I checked and there is a workload request and she even called on July 19 to try to book it and the request was re forwarded at that time. BIOPSY Medications: New lubiprostone (Amitiza) 24 mcg PO BID 60 caps 6RF 30 days K5.04 - Chronic idiopathic constipation Coding Level of Care Code Est Pt Level 3 (86632) Diagnoses Chronic idiopathic constipation K59.04
--- OUTSIDE RECORDS SUMMARY | 2024-09-24 15:08 | XMS_ITS | Clinical Summary ---
Author Organization [employer] Address [address] [place] [address] Care Team Providers Care Sourcing Specialist Name Role Phone Unavailable Primary Care Provider [...]
--- OUTSIDE RECORDS SUMMARY | 2024-09-24 15:08 | XMS_ITS | Encounter Summary ---
Author Organization [facility] Address [address] [place] [address] Care Team Providers Care Jewelry Department Supervisor Name Role Phone Unavailable Primary Care Provider [...]
== END 2024-09-24 14:12 | disposition home or self-care (01) ==
LOC: HO.HGI 13:15
PROVIDERS: PCP Physician Assistant Medical; Visit Provider Nurse Practitioner
DX: K59.04 Chronic idiopathic constipation (principal)
CPT/HCPCS: 99213

== ENCOUNTER → 2024-09-24 13:14 | Outpatient (BNVA) | payer OTHER, SELFPAY | PROVIDERS: PCP Physician Assistant Medical; Visit Provider Nurse Practitioner | DX: K59.04 Chronic idiopathic constipation (principal) | CPT/HCPCS: 99212 ==

== ENCOUNTER 2024-09-25 07:11 | Outpatient (REF) | payer OTHER, SELFPAY ==
--- NOTE | ~2024-09-25 | XR_ITS ---
EXAMINATION: XR HAND 3 OR MORE VIEWS RIGHT HISTORY: M79.641 - Pain in right hand COMPARISON: There are no prior studies available for comparison. FINDINGS: Three views of the right hand are submitted. Osseous mineralization is normal. There is no fracture or dislocation. The joint spaces are preserved. The soft tissues are unremarkable. XR/XR hand RT min 3V IMPRESSION: Unremarkable examination of the right hand. Electronically signed by: Jaime Fields MD 09/27/2024 02:28 PM EDT
--- NOTE | ~2024-09-25 | XR_ITS ---
EXAMINATION: XR KNEE 1-2 VIEWS RIGHT HISTORY: M25.561 - Pain in right knee COMPARISON: There are no prior studies available for comparison. FINDINGS: AP and lateral views of the right knee are submitted. Osseous mineralization is normal. There is no fracture or dislocation. There is moderate osteoarthritis of the medial compartment, with joint space narrowing and osteophyte formation. The soft tissues are unremarkable. There is no significant joint effusion. XR/XR knee RT 2V IMPRESSION: Moderate osteoarthritis of the medial compartment. Electronically signed by: Jaime Fields MD 09/27/2024 02:29 PM EDT
--- OUTSIDE RECORDS SUMMARY | 2024-09-25 07:13 | XMS_ITS | Clinical Summary ---
Author Organization [employer] Address [address] [place] [address] Care Team Providers Care Film Historian Name Role Phone Unavailable Primary Care Provider [...]
--- OUTSIDE RECORDS SUMMARY | 2024-09-25 07:13 | XMS_ITS | Encounter Summary ---
Author Organization [facility] Address [address] [place] [address] Care Team Providers Care Auto Service Writer Name Role Phone Unavailable Primary Care Provider [...]
== END 2024-09-25 07:12 | disposition home or self-care (01) ==
LOC: HO.XRAY 07:11
PROVIDERS: PCP Physician Assistant Medical; Visit Provider Physician Assistant Medical
DX: M79.641 Pain in right hand (principal); M25.561 Pain in right knee; E11.9 Type 2 diabetes mellitus without complications; E78.6 Lipoprotein deficiency
CPT/HCPCS: 73130; 73560

== ENCOUNTER → 2024-09-25 07:21 | Outpatient (BNV) | payer OTHER, SELFPAY | PROVIDERS: PCP Physician Assistant Medical; Visit Provider Radiology Diagnostic Radiology | DX: M79.641 Pain in right hand (principal); M17.11 Unilateral primary osteoarthritis, right knee | CPT/HCPCS: 73130; 73560 ==

== ENCOUNTER 2024-10-07 08:07 | Outpatient (REF) | payer OTHER, SELFPAY ==
--- OUTSIDE RECORDS SUMMARY | 2024-10-07 08:22 | XMS_ITS | Encounter Summary ---
Author Organization [facility] Address [address] [place] [address] Care Team Providers Care Green Material Value Added Assessor Name Role Phone Unavailable Primary Care Provider [...]
--- OUTSIDE RECORDS SUMMARY | 2024-10-07 08:22 | XMS_ITS | Clinical Summary ---
Author Organization [employer] Address [address] [facility] [address] [place] [address] Care Team Providers Care Waiver Analyst Name Role Phone Unavailable Primary Care Provider [...]
== END 2024-10-07 08:08 | disposition home or self-care (01) ==
LOC: HO.MAMMO 08:07
PROVIDERS: PCP Physician Assistant Medical; Visit Provider Physician Assistant Medical
DX: Z12.31 Encounter for screening mammogram for malignant neoplasm of breast (principal)
CPT/HCPCS: 77063; 77067

== ENCOUNTER → 2024-10-07 08:15 | Outpatient (BNV) | payer OTHER, SELFPAY | PROVIDERS: PCP Physician Assistant Medical; Visit Provider Internal Medicine | DX: Z12.31 Encounter for screening mammogram for malignant neoplasm of breast (principal) | CPT/HCPCS: 77063; 77067 ==

== ENCOUNTER → 2024-10-14 13:56 | Outpatient (REF) | payer OTHER, SELFPAY ==
--- NOTE | 2024-10-14 13:59 | CA_ITS ---
Transthoracic Echocardiogram Patient (Last, First, Middle): Keli Darden, Gender: Female Date of : 1965 Age: 59 Procedure Date: 10/14/2024 Procedure Type: Transthoracic Echocardiogram Location: OP Height: 154. cm Weight: 68.04 kg BSA: 1.66 m2 Heart Rate: 72 bpm BP: 90 / 40 mmHg Garbage Truck Dispatcher: STEVE/WILLIAMS Referring MD: Tiki DEVINE Symptoms: I35.0 - Nonrheumatic aortic (valve) stenosis Study Quality: Adequate ECG Rhythm: Sinus Conclusions: - The left ventricular systolic function is normal. The calculated ejection fraction is 59% by biplane method. - There is mild aortic valve stenosis. Findings Left Ventricle Normal left ventricular cavity size. There is normal left ventricular wall thickness. The left ventricular systolic function is normal. The calculated ejection fraction is 59% by biplane method. There is no evidence of regional wall motion abnormalities. Diastolic function is normal for age. Right Ventricle Normal right ventricular cavity size and systolic function. Atria Both atria are likely dilated. Aortic Valve There is a normal trileaflet aortic valve. There is mild calcification of the aortic valve. There is mild aortic valve stenosis. There is no aortic valve regurgitation. Mitral Valve The mitral valve appears normal. There is trace mitral valve regurgitation. There is no mitral valve stenosis. Pulmonic Valve The pulmonic valve is likely normal. Tricuspid Valve Normal tricuspid valve structure. There is trace tricuspid valve regurgitation. There is no evidence of pulmonary hypertension. Great Vessels The asc aorta and aortic arch are normal in size. Venous The inferior vena cava is normal in size and collapses greater than 50% with inspiration. Pericardium/Pleural There is a trivial pericardial effusion. Prior Study Comparison No significant change compared to prior study dated: 02/22/2022. Measurements 2D Linear Measurements IVSd: 0.74 0.6-0.9/0.6-1.0 cm LVIDd: 4.43 3.9-5.3/4.2-5.9 cm LVIDd Index: 2.67 2.4-3.2/2.2-3.1 cm/m2 LVIDs: 2.26 2.0-3.6 cm LVPWd: 0.93 0.7-1.1 cm LA Diam: 3.60 2.7-3.8/3.0-4.0 cm LAIDs Index: 2.17 1.5-2.3 cm/m2 LV Mass: 145.76 67-162/88-224 g LV Mass Index: 87.81 43-95/49-115 g/m2 LVOT Diam: 1.80 3.0+(-)1.3 cm 2D Systolic Function EF 4C: 61.60 >55% EF 2C: 55.20 >55% EF BiP: 58.90 >55% Mitral Valve MV Pk E: 0.72 MV PK A: 0.94 MV Decel Time: 282.00 E/A: 0.80 E'Lateral: 6.96 E'Medial: 4.68 E/E' Med: 15.50 E/E' Lat: 10.40 PHT: 83.00 MVA PHT: 2.65 Decel Nuckolls: 2.57 Aortic Valve AoV Pk Evens: 2.34 AoV Mn Evens: 1.65 AoV VTI: 0.47 AoV Pk Grad: 22.00 Aov Mn Grad: 12.00 VARSHA Cont.VTI: 1.21 LVOT LVOT Pk Evens: 1.10 LVOT Mn Evens: 0.79 LVOT VTI: 0.22 LVOT Pk Grad: 5.00 LVOT Mn Grad: 3.00 LVOT Diam: 1.80 LVOT Area: 2.54 Diastolic Function MV Pk E: 0.72 MV Pk A: 0.94 E/A: 0.80 E'Medial: 4.68 E/E' Med: 15.50 E' Laterial: 6.96 E/E' Lat: 10.40 Right Ventricle TAPSE (mm): 19.10 TVS' Evens: 10.90 Tricuspid Valve RA Press: 3.00 Great Vessels Aorta Sinus of Valsalva: 2.90 2.0-3.5 cm Ao Asc: 2.90 2.1-3.4 cm Ao Arch: 2.40 Pulmonary Valve PV Pk Evens: 1.09 Peak PV Grad: 5.00 Updated in Other Vendor System with Status of Final Andre Dooley MD electronically signed on 10/15/2024 3:51:52 PM with status of Final
--- OUTSIDE RECORDS SUMMARY | 2024-10-14 16:23 | XMS_ITS | Clinical Summary ---
Author Organization [employer] Address [address] [facility] [address] [place] [address] Care Team Providers Care Junk Removal Specialist Name Role Phone Unavailable Primary Care [...]
--- OUTSIDE RECORDS SUMMARY | 2024-10-14 16:23 | XMS_ITS | Encounter Summary ---
Author Organization [facility] Address [address] [facility] [address] [facility] [address] [place] [address] Care Team Providers Care Stack Clerk Name Role Phone Unavailable Primary Care Provider [...]
== END ==
LOC: HO.CARD 13:56
PROVIDERS: PCP Physician Assistant Medical; Visit Provider Physician Assistant Medical
DX: I35.0 Nonrheumatic aortic (valve) stenosis (principal)
CPT/HCPCS: 93306

== ENCOUNTER → 2024-10-14 13:59 | Outpatient (BNV) | payer OTHER, SELFPAY | PROVIDERS: PCP Physician Assistant Medical; Visit Provider Internal Medicine | DX: I35.0 Nonrheumatic aortic (valve) stenosis (principal); I34.0 Nonrheumatic mitral (valve) insufficiency; I36.1 Nonrheumatic tricuspid (valve) insufficiency | CPT/HCPCS: 93306 ==

== ENCOUNTER 2024-11-26 14:53 | Outpatient (AMB) | payer OTHER, SELFPAY ==
--- NOTE | 2024-11-26 14:55 | MHC.OFFVIS ---
Vital Signs 11/26/24 15:03 Height 5 ft 1 in Weight 148 lb BMI 28.0 BP 112/60 Blood Pressure Location Rt brachial Position Sitting Pulse 72 Pulse Source Pulse Oximeter Pulse Oximetry (%) 94 Oxygen Delivery Method Room Air Intake Visit Reasons: 2m Intake Note: Established patient for mgmt of [facility]IC. Gabbie wittnachoza tx CC; C.O. failure of therapy trial. Pt still experiencing constipation w/o evidence of hemorrhoids, generalized abd pain, GERD intermittently. Pt denies having any PPI currently and comments that she is only taking famotidine which works to an extent to control sx. Hasher Machine Operator Required: No Accompanied by: Self / Same As Patient Allergies No Known Drug Allergies Allergy (Unknown, Verified 11/26/24 14:59) none milk Allergy (Verified 11/26/24 14:59) Unknown HPI HPI 2m: Details: Assessment & Plan (1) Chronic idiopathic constipation: Code(s): K59.04 - Chronic idiopathic constipation Category: Medical Plan She has continued bloating, she is moving her bowels about 3 times a week which is not enough to keep this symptom at [place]. When she had Linzess she did well but then her co-pay was quite high. She failed senna, could not tolerate lactulose, failed MiraLax, could not tolerate bisacodyl secondary to sweating and nausea, takes a fiber supplement was out sufficient affect, has failed Colace. Amitiza is more readily available in a generic and there is also a discount through [facility]. Return office visit in 8 weeks Medications: New lubiprostone (Amitiza) 24 mcg PO BID 60 caps 6RF 30 days K59.04 - Chronic idiopathic constipation COLONOSCOPY She has not heard for screening her colonoscopy, I checked and there is a workload request and she even called on July 19 to try to book it and the request was re forwarded at that time. BIOPSY TODAY'S VISIT The [facility] at [facility] did not work. Again she did well on LinLernstifts, but she had a high copay. I go on the website and get her another copay card - ? if she will need to do pt assistance. ROV 6 weeks. [facility] Medical History Right hand pain Right knee pain Diarrhea Right-sided back pain Acute right flank pain Otitis media Muscle strain Neck pain Back pain Murmur Right otitis media Encounter for well woman exam with routine gynecological exam Controlled type 2 diabetes mellitus Dermatitis of ear canal Breast cancer screening by mammogram Screening for cervical cancer Screening for colon cancer Adult general medical examination Bunion Essential hypertension Surgical History History of esophagogastroduodenoscopy (EGD) Hx of tonsillectomy History of colonoscopy with polypectomy Hx of section Family History Mother Diabetes Brother Diabetes Sister Diabetes Social History Housing: Apartment Alcohol intake: never Patient Tobacco Use Status: Never used Tobacco e-Cigarette/Vaping Use: Never Used Second Hand Smoke Exposure: No service: No Current occupational status: employed Current occupational exposures/hazards: No Sexual orientation: Straight/Heterosexual Gender identity: Female Cognitive needs: No Hearing needs: No Vision needs: No Female Reproductive History Menstrual Age of Menarche: 12 Review of Systems Const Denies fatigue, Denies fever(s), Denies night sweats, Denies poor appetite and Denies weight loss ENT Reports Normal hearing present, Denies dental pain, Denies dysphagia, Denies hearing loss, Denies mouth pain, Denies odynophagia, Denies throat swelling, Denies tongue swelling and Reports other (Dentition adequate) Card Reports no additional complaints Resp Reports no additional complaints GI Details: Denies abdominal pain, Denies melena, Denies bloating, Denies hematochezia, Reports constipation, Denies GI cramping, Denies dysphagia, Denies excessive flatus, Denies early satiety, Reports heartburn, Denies diarrhea, Denies nausea, Denies odynophagia, Denies vomiting and Denies hematemesis Skin/Breast Denies pruritus, Denies lesions, Denies rash and Denies jaundice Neuro Reports Normal hearing present and Denies Abnormal speech present Endo Denies fatigue Aller/Immun Denies throat swelling and Denies tongue swelling Physical Exam Vital Signs: Last Vital Signs Pulse 72 11/26/24 15:03 BP 112/60 11/26/24 15:03 Pulse Ox 94 11/26/24 15:03 Oxygen Delivery Method Room Air 11/26/24 15:03 BMI result Body Mass Index 28.0 Const General: cooperative, no acute distress, well developed and well groomed Nutritional Appearance: well nourished and overweight Orientation/consciousness: oriented to person, oriented to place and oriented to time Limitations: No language barrier HEENT Head: Yes normocephalic and Yes atraumatic Eyes General: appearance normal, both eyes and all related structures Pupils: Equal, round and reactive pupils present Neck Neck: Yes normal visual inspection and Yes no lymphadenopathy Thyroid: Thyroid normal Resp Effort & Inspection: normal respiratory effort and able to speak in complete sentences Auscultation: clear to auscultation bilaterally Cardio Rate: regular rate Rhythm: regular rhythm Heart sounds: Normal, physiologic split S2 sound present Peripheral pulses: radial pulses present and posterior tibial pulses present GI Inspection: No distended, No Abdominal panniculus present and Yes obesity Palpation (GI): Soft to palpation, nontender, no guarding, not rigid and No hepatosplenomegaly present Percussion: Yes normal to percussion Auscultation: normal bowel sounds Rectal Exam - Female: deferred Skin General skin exam: no rashes or lesions noted, turgor normal, skin not dry, no jaundice, No spider nevi and no striae Rashes: no rashes Nails: normal Neuro General: oriented to person, oriented to place and oriented to time Cranial nerves: Yes Equal, round and reactive pupils present and Yes Normal hearing present Speech: No Abnormal speech present Extrem General: Yes normal to inspection, No clubbing, No cyanosis and No edema Psych Appearance: grossly normal and well kempt Mental Status: mental status grossly normal Speech and movement: Normal speech and movement present Affect: normal affect Attitude: cooperative Thought process: Normal thought process present and not confabulating Thought content: Normal thought content present Insight: Good insight present (Psych) Judgement: Good judgement present (Psych) Assessment & Plan Assessment & Plan (1) Chronic idiopathic constipation: Code(s): K59.04 - Chronic idiopathic constipation Category: Medical (2) Tubular adenoma of colon: Comment: 2021 scope 3 polyps 1, 10 mm repeat in 3 years Code(s): D12.6 - Benign neoplasm of colon, unspecified Category: Medical Plan The [facility] at [facility] did not work. Again she did well on Linzess, but she had a high copay. I go on the website and get her another copay card - ? if she will need to do pt assistance. ROV 6 weeks. COLONOSCOPY She has not heard for screening her colonoscopy, I checked and there is a workload request and she even called on July 19 to try to book it and the request was re forwarded at that time. BIOPSY Medications: New linaclotide (Linzess) Take first thing in the morning with a full glass of water. 145 mcg PO QAM 30 caps 6RF K58.1 - Irritable bowel syndrome with constipation Discontinued lubiprostone Discontinued Reason: Patient no longer taking 24 mcg PO BID 30 days 60 caps 6RF K59.04 - Chronic idiopathic constipation Coding Level of Care Code Est Pt Level 3 (41979) Diagnoses Chronic idiopathic constipation K59.04 Tubular adenoma of colon D12.6
--- OUTSIDE RECORDS SUMMARY | 2024-11-26 14:55 | XMS_ITS | Clinical Summary ---
Author Organization [employer] Address [address] [facility] [address] [place] [address] Care Team Providers Care Network Control Operators Supervisor Name Role Phone Unavailable Primary Care [...] 1965 FIT 1965 FOBT 1965 Sigmoidoscopy 1965 Disability Screening 1965 Alcohol/Substance Use Screening 1977 Tobacco Screening 1977 DTaP/Tdap/Td Vaccines (1 - Tdap) 1984 Hepatitis B Vaccines (1 of 3 - 19+ 3-dose series) 1984 Pap Smear 1986 Cervical Cancer Screening 1995 HPV/Cotest 1995 Mammogram 2005 Pneumococcal Vaccine: 50+ Ye ars (1 of 1 - PCV) 2015 Zoster Vaccines (1 of 2) 2015 COVID-19 Vaccine (2023-2 5 season) 2024 Influenza Vaccine (Season Ended) 2025 RSV Patients and Pa tients Aged 60 [...] patient's age to complete this topic Meningococcal B Vaccine Aged Out No l onger eligible based on patient's age to complete [...]
[2024-11-26 15:03] VITALS: BP 112/60; PULSE 72; O2SAT 94; BMI 28.0
== END 2024-11-26 15:39 | disposition home or self-care (01) ==
LOC: HO.HGI 14:54
PROVIDERS: PCP Physician Assistant Medical; Visit Provider Nurse Practitioner
DX: K59.04 Chronic idiopathic constipation (principal); D12.6 Benign neoplasm of colon, unspecified
CPT/HCPCS: 99213

== ENCOUNTER → 2024-11-26 14:53 | Outpatient (BNVA) | payer OTHER, SELFPAY | PROVIDERS: PCP Physician Assistant Medical; Visit Provider Nurse Practitioner | DX: K59.04 Chronic idiopathic constipation (principal); D12.6 Benign neoplasm of colon, unspecified | CPT/HCPCS: 99212 ==

== ENCOUNTER 2024-12-21 07:53 | Outpatient (AMB) | payer OTHER, SELFPAY ==
--- NOTE | 2024-12-21 07:55 | A.OFFVIS_ITS ---
Vital Signs 12/21/24 07:56 Height 5 ft 1 in Weight 146 lb BMI 27.6 BP 116/70 Intake Visit Reasons: CERTIFIED HAND THERAPIST annual exam Intake Note: pt c/o urinary urgency Patient Access Manager: Patient Access Manager Present (Naty) Allergies No Known Drug Allergies Allergy (Unknown, Verified 12/21/24 07:56) none milk Allergy (Verified 12/21/24 07:56) Unknown HPI Comments Details: Patient is a postmenopausal woman presenting for her annual physician relations specialist examination. She is doing well with physician relations specialist concerns: urinary urgency for the last 2-3d. No odor or irritation. Currently sexually active, admits to painful intimacy and occasional spotting afterwards. Attempting to eat a healthy diet with calcium and vitamin D and stays active with exercise. Last pap smear; 2023, negative. Last mammogram; 2024. ColoGard is UTD. Denies any family history of breast, ovarian or colon cancer. [facility] Medical History (Updated 12/21/24 @ 08:36 by Estella Grove CNM) Encounter for well woman exam with routine gynecological exam Right hand pain Right knee pain Diarrhea Right-sided back pain Acute right flank pain Otitis media Muscle strain Neck pain Back pain Murmur Right otitis media Controlled type 2 diabetes mellitus Dermatitis of ear canal Breast cancer screening by mammogram Screening for cervical cancer Screening for colon cancer Adult general medical examination Bunion Essential hypertension Surgical History History of esophagogastroduodenoscopy (EGD) Hx of tonsillectomy History of colonoscopy with polypectomy Hx of section Family History Mother Diabetes Brother Diabetes Sister Diabetes Social History Housing: Apartment Alcohol intake: never Patient Tobacco Use Status: Never used Tobacco e-Cigarette/Vaping Use: Never Used Second Hand Smoke Exposure: No service: No Current occupational status: employed Current occupational exposures/hazards: No Sexual orientation: Straight/Heterosexual Gender identity: Female Cognitive needs: No Hearing needs: No Vision needs: No Female Reproductive History Menstrual Age of Menarche: 12 Menopause type: natural Total pregnancies: 7 Full term: 2 Number of Living Children: 2 Ab spontaneous: 5 Date of last pap smear: 12/16/23 (neg pap and hpv) Date of Mammogram: 10/07/24 (Birad 1) Review of Systems Const All systems reviewed & are unremarkable except as noted in HPI and below Reports as per HPI Eyes Reports no additional complaints ENT Reports no additional complaints Card Reports no additional complaints Resp Reports no additional complaints GI Reports as per HPI and Reports no additional complaints Reports as per HPI Musc Reports no additional complaints Skin/Breast Reports as per HPI Neuro Reports no additional complaints Psych Reports no additional complaints Endo Reports no additional complaints Coy/Lymph Reports no additional complaints Aller/Immun Reports no additional complaints Physical Exam Vital Signs: Last Vital Signs BP 116/70 12/21/24 07:56 BMI result Body Mass Index 27.6 Const General: cooperative, healthy appearing, no acute distress, well developed and alert Orientation/consciousness: patient oriented x3 HEENT Head: Yes normal to inspection Eyes General: appearance normal, both eyes and all related structures Neck Neck: Yes normal visual inspection Thyroid: Thyroid normal Chest Chest palpation & inspection: normal inspection of the chest and other (no puckering, dimpling, peau de orange, retraction, discharge, masses) Breast/axilla inspection: normal inspection of the breasts Breast/axilla palpation: normal palpation of the breasts Resp Effort & Inspection: normal respiratory effort GI Inspection: Yes normal to inspection and Yes scar Palpation (GI): Soft to palpation Rectal Exam - Female: deferred General: Yes bladder normal to palpation External Female Exam: normal external appearance and normal appearance of the urethra Speculum Exam - Vagina: normal appearance of the vagina, normal palpation, normal vaginal discharge and vagina atrophic Speculum Exam - Cervix: normal appearance of the cervix and normal palpation Bimanual exam- vagina & uterus: normal bimanual exam, normal palpation, uterine size normal, bladder normal to palpation, normal palpation and non-tender Bimanual Exam- Adnexa, other: no masses Skin General skin exam: no rashes or lesions noted Rashes: no rashes Neuro General: patient oriented x3 Cognition (Neuro): normal cognition Extrem General: Yes normal to inspection Psych Attitude: cooperative Thought process: Normal thought process present Results AMB Urinalysis, Automated UA Leukoctes 0.5 Opal/uL Last Edit by ALAN Flores on 12/21/24 08:0 8 UA Nitrite Negative Last Edit by ALAN Flores on 12/21/24 08:08 UA Urobilinogen 0 mg/dL Last Edit by Jeanette Law [facility] on 12/21/24 08:0 8 UA Protein 0.5 mg/dL Last Edit by Jeanette Law [facility] on 12/21/24 08:08 UA pH 5.5 Last Edit by Jeanette Law A on 12/21/24 08:08 UA Blood 0 Alhaji/uL Last Edit by Jeanette Law [facility] on 12/21/24 08:08 UA Specific [place] 1.025 Last Edit by Jeanette Law [facility] on 12/21/24 08:08 UA Ketone Negative Last Edit by Jeanette Law [facility] on 12/21/24 08:08 UA Bilirubin 1 mg/dL Last Edit by Jeanette Law [facility] on 12/21/24 08:08 UA Glucose 0 mg/dL Last Edit by Jeanette Law [facility] on 12/21/24 08:08 Results Reviewed Results Reviewed: Laboratory Last Values Urine pH (Auto) 5.5 12/21/24 08:06 Specific [place] (Auto) 1.025 12/21/24 08:06 Urine Protein (Auto) 0.5 mg/dL 12/21/24 08:06 Glucose (UA)(Auto) 0 mg/dL 12/21/24 08:06 Urine Ketones (Auto) Negative 12/21/24 08:06 Urine Blood (Auto) 0 Alhaji/uL 12/21/24 08:06 Urine Nitrite (Auto) Negative 12/21/24 08:06 Urine Bilirubin (Auto) 1 mg/dL 12/21/24 08:06 Urine Urobilinogen (Auto) 0 mg/dL 12/21/24 08:06 Leukocyte Esterase (Auto) 0.5 Opal/uL 12/21/24 08:06 Assessment & Plan Assessment & Plan (1) Encounter for well woman exam with routine gynecological exam: Code(s): Z01.419 - Encounter for gynecological examination (general) (routine) without abnormal findings Category: Medical Plan Discussed: Current recommendations for pap smears per ASCCP guidelines. Breast awareness, periodic self breast exams and yearly mammogram. Urine sent for culture. Encouraged increased hydration with water. Maintain a healthy lifestyle, well balanced diet including Calcium 1,200 mg and Vitamin D 600 IU daily, and routine exercise. Replens moisturizer use, instructions reviewed. If not improving, follow up in office prn. Contact the office with any postmenopausal bleeding. Patient verbalizes understanding and agrees to the plan of care. She was given opportunity to ask questions and all questions were answered to the best of my ability. RTO in 1 year for annual physician relations specialist exam. This note is constructed using voice recognition software. While every effort has been made to ensure accuracy, gaming pit boss errors may have been included. Orders: Orders AMB Urinalysis Automated Today R35.0 - Frequency of micturition Urine Culture Today R35.0 - Frequency of micturition Coding Level of Care Code Est Pt Prev Care 40-64y(48789) Diagnoses Encounter for well woman exam with routine gynecological exam Z01.419
[2024-12-21 07:56] VITALS: BP 116/70; BMI 27.6
--- OUTSIDE RECORDS SUMMARY | 2024-12-21 07:56 | XMS_ITS | Clinical Summary ---
Author Organization [employer] Address [address] [facility] [address] [place] [address] Care Team Providers Care Windows And Doors Installer Name Role Phone Unavailable Primary Care Provider [...]
== END 2024-12-21 08:41 | disposition home or self-care (01) ==
LOC: HO.HWS 07:54
PROVIDERS: PCP Family Medicine; Visit Provider Advanced Practice Midwife
DX: Z01.419 Encounter for gynecological examination (general) (routine) without abnormal findings (principal); R35.0 Frequency of micturition
CPT/HCPCS: 99396; 99459

== ENCOUNTER 2024-12-21 07:53 | Outpatient (REF) | payer OTHER, SELFPAY | END 2024-12-21 07:54 | disposition home or self-care (01) | LOC: HO.LAB 07:53 | PROVIDERS: PCP Family Medicine; Visit Provider Advanced Practice Midwife | DX: R35.0 Frequency of micturition (principal); Z01.419 Encounter for gynecological examination (general) (routine) without abnormal findings | CPT/HCPCS: 81003; 87086; 87147; 99396 ==

== ENCOUNTER 2025-01-31 07:22 | Day surgery (SDC) | payer OTHER, SELFPAY ==
--- OUTSIDE RECORDS SUMMARY | 2024-12-31 12:04 | XMS_ITS | Clinical Summary ---
Author Organization [employer] Address [address] [facility] [address] [place] [address] Care Team Providers Care Coding Specialist Name Role Phone Unavailable Primary Care [...] Vaccine (2023-2 5 season) 2024 Influenza Vaccine (#1) 2025 RSV Patients and Pa tients Aged [...]
[2025-01-27 13:37] VITALS: BMI 28.0
[2025-01-27 13:50] VITALS: BMI 27.4
--- NOTE | 2025-01-27 14:07 | HO.ANESPROP2 ---
Documented by User: Damari Montaño NP 01/27/25 14:10 HPI - Anesthesia Eval Consult details Narrative: 59yo F for Colonoscopy Mild (VARSHA 1.2) Anesthesia Pre-Procedure Meds Is the patient on any of the following meds?: GLP1/DPP4 PMFSH Active Problems Active Problems: All Active Problems Encounter for well woman exam with routine gynecological exam (Acute) Right hand pain (Acute) Right knee pain (Acute) Pre-op examination (Acute) Environmental allergies (Acute) Controlled type 2 diabetes mellitus (Acute) Dermatitis of ear canal (Acute) Low HDL (under 40) (Acute) Milk allergy (Acute) Hypercalcemia (Acute) Hypercholesterolemia (Acute) Bilateral hip pain (Acute) GERD (gastroesophageal reflux disease) (Acute) Breast lump on left side at 12 o'clock position (Acute) Aortic stenosis (Acute) Chronic idiopathic constipation (Acute) Knee pain, left (Acute) Cough (Acute) Asthma (Acute) Tubular adenoma of colon (Acute) Essential hypertension (Acute) Past Medical History Medical History Encounter for well woman exam with routine gynecological exam Right hand pain Right knee pain Diarrhea Right-sided back pain Acute right flank pain Otitis media Muscle strain Neck pain Back pain Murmur Right otitis media Controlled type 2 diabetes mellitus Dermatitis of ear canal Breast cancer screening by mammogram Screening for cervical cancer Screening for colon cancer Adult general medical examination Bunion Essential hypertension Family History Family History Mother Diabetes Brother Diabetes Sister Diabetes Family history of problems with anesthesia: No Surgical History Surgical History History of bunionectomy of both great toes History of esophagogastroduodenoscopy (EGD) Hx of tonsillectomy History of colonoscopy with polypectomy Hx of section History of Problems with Anesthesia: No Social History Social History Household Members: None Housing: Apartment Are you a primary personal care service provider to a significant other at home: No Do you presently have visiting nurse or other home services: No Alcohol intake: never Patient Tobacco Use Status: Never used Tobacco e-Cigarette/Vaping Use: Never Used Second Hand Smoke Exposure: No Use of substances other than those prescribed or required for medical reasons: No Have you been hit, kicked, punched, or otherwise hurt by someone within the past year? If so, by whom?: No Are you DNR?: No Advance Directives: No Advance Directives Information Provided: Yes Advance Directives on File: No Patient : No : No Poor oral hygiene: No service: No Current occupational status: employed Current occupational exposures/hazards: No Sexual orientation: Straight/Heterosexual Gender identity: Female Cognitive needs: No Hearing needs: No Vision needs: No Meds Allergies Allergy/AdvReac Type Severity Reaction Status Date / Time milk Allergy Gastrointestinal Verified 01/27/25 13:49 Upset Home Medications ?Medication ?Instructions ?Recorded ?Confirmed ?Last Taken ?Type fluticasone fur. 200 mcg-umeclid 1 inh inhalation Q24H 08/13/24 01/27/25 Unknown History 62.5 mcg-vilant 25 mcg inhalat.powder (Trelegy Ellipta) Exam Height,Weight and Vital Signs: Height 5 ft 1 in Weight 65.771 kg Narrative Narrative: ECHO 09/2024 Conclusions: - The left ventricular systolic function is normal. The calculated ejection fraction is 59% by biplane method. - There is mild aortic valve stenosis. Assessment and Plan Assessment Anesthesia Assessment: Chart Reviewed Final Anesthetic Review Family History of Problems with Anesthesia: No History of Problems with Anesthesia: No Documented by User: Machelle Bennett MD 01/31/25 08:26 [facility] Past Medical History Medical History Encounter for well woman exam with routine gynecological exam Right hand pain Right knee pain Diarrhea Right-sided back pain Acute right flank pain Otitis media Muscle strain Neck pain Back pain Murmur Right otitis media Controlled type 2 diabetes mellitus Dermatitis of ear canal Breast cancer screening by mammogram Screening for cervical cancer Screening for colon cancer Adult general medical examination Bunion Essential hypertension Family History Family History Mother Diabetes Brother Diabetes Sister Diabetes Surgical History Surgical History History of bunionectomy of both great toes History of esophagogastroduodenoscopy (EGD) Hx of tonsillectomy History of colonoscopy with polypectomy Hx of section Social History Social History Household Members: None Housing: Apartment Are you a primary personal care service provider to a significant other at home: No Do you presently have visiting nurse or other home services: No Alcohol intake: never Patient Tobacco Use Status: Never used Tobacco e-Cigarette/Vaping Use: Never Used Second Hand Smoke Exposure: No Use of substances other than those prescribed or required for medical reasons: No Have you been hit, kicked, punched, or otherwise hurt by someone within the past year? If so, by whom?: No Are you DNR?: No Advance Directives: No Advance Directives Information Provided: Yes Advance Directives on File: No Patient : No : No Poor oral hygiene: No service: No Current occupational status: employed Current occupational exposures/hazards: No Sexual orientation: Straight/Heterosexual Gender identity: Female Cognitive needs: No Hearing needs: No Vision needs: No Meds Allergies Allergy/AdvReac Type Severity Reaction Status Date / Time milk Allergy Gastrointestinal Verified 01/27/25 13:49 Upset Home Medications ?Medication ?Instructions ?Recorded ?Confirmed ?Last Taken ?Type fluticasone fur. 200 mcg-umeclid 1 inh inhalation Q24H 08/13/24 01/27/25 Unknown History 62.5 mcg-vilant 25 mcg inhalat.powder (Trelegy Ellipta) Exam Airway Mallampati Class: II TM Dist: >3cm Neck ROM: Full Heart: rrr Lungs: cta Assessment and Plan Assessment Anesthesia Assessment: Anesthesia Plan Discussed Final Anesthetic Review NPO: Yes ASA Class: III Final Preanesthetic Review: No Changes in Pt Med Stat, Meds/Allgs Chart Reviewed, Consent Obtained/Reviewed and Anes Risks/Benef Reviewed Patient Risk: Intermediate Procedure Risk: Low Anesthetic Plan Anesthetic Plan: MAC: Disposition: Standard PACU
--- NOTE | 2025-01-31 07:20 | MHC.SHP ---
Pre-Procedural Eval Section A - 24 Hr Update-Section A only Date of Service: 01/31/25 The patient is an INPATIENT: No The patient has been examined within 24 hours of the surgical procedure. The History & Physical has been completed within 30 days and I have reviewed it.: No Section B - Complete if H&P > 30 days Chief Complaint: Surveillance for colon polyps Relevant Family History (Specify if Yes): No Relevant Social History: None Present Medications: see Short Stay Collaborative assessment Medical History: Significant History (Controlled type 2 diabetes mellitus Dermatitis of ear canal, hypertension) History of Previous Operations: Relevant previous surgery/procedure and date(s) (History of esophagogastroduodenoscopy (EGD) Hx of tonsillectomy History of colonoscopy with polypectomy Hx of section) Allergies: Allergies Allergy/AdvReac Type Severity Reaction Status Date / Time milk Allergy Gastrointestinal Verified 01/27/25 13:49 Upset Review of Systems Sugical H&P ROS: Negative: Constitution, Cardiovascular, Respiratory and Gastrointestinal Exam Surgical H&P Exam: Normal: Heart, Normal: Lungs, Normal: Extremities and Normal: Abdomen Plan Diagnosis/Plan: Unchanged I have reviewed the history and physical and performed a pertinent physical examination on my patient. No changes have occurred unless specified. Time Spent With Patient Time: Total time managing care of this patient today ____ minutes.
[2025-01-31 07:28] VITALS: BMI 27.0
[2025-01-31 07:40] VITALS: BP 116/57; PULSE 75; RESP 16; TEMP 36.3; O2SAT 94
[2025-01-31 07:46] LABS: Glucose, Whole Blood 93 mg/dL (60-115)
[2025-01-31] MEDS: Lactated Ringers 1,000 ML 100 ML IVCONT (07:50)
--- NOTE | 2025-01-31 09:00 | P.CONAN_ITS ---
[facility] Active Problems Active Problems: All Active Problems Pre-op examination (Acute) Environmental allergies (Acute) Low HDL (under 40) (Acute) Milk allergy (Acute) Hypercalcemia (Acute) Hypercholesterolemia (Acute) Bilateral hip pain (Acute) GERD (gastroesophageal reflux disease) (Acute) Breast lump on left side at 12 o'clock position (Acute) Aortic stenosis (Acute) Chronic idiopathic constipation (Acute) Tubular adenoma of colon (Acute) Asthma (Acute) Cough (Acute) Knee pain, left (Acute) Encounter for well woman exam with routine gynecological exam (Acute) Right hand pain (Acute) Right knee pain (Acute) Controlled type 2 diabetes mellitus (Acute) Dermatitis of ear canal (Acute) Essential hypertension (Acute) Past Medical History Medical History Encounter for well woman exam with routine gynecological exam Right hand pain Right knee pain Diarrhea Right-sided back pain Acute right flank pain Otitis media Muscle strain Neck pain Back pain Murmur Right otitis media Controlled type 2 diabetes mellitus Dermatitis of ear canal Breast cancer screening by mammogram Screening for cervical cancer Screening for colon cancer Adult general medical examination Bunion Essential hypertension Family History Family History Mother Diabetes Brother Diabetes Sister Diabetes Family history of problems with anesthesia: No Surgical History Surgical History History of bunionectomy of both great toes History of esophagogastroduodenoscopy (EGD) Hx of tonsillectomy History of colonoscopy with polypectomy Hx of section History of Problems with Anesthesia: No Social History Social History Household Members: None Housing: Apartment Are you a primary patient care technician to a significant other at home: No Do you presently have visiting nurse or other home services: No Alcohol intake: never Patient Tobacco Use Status: Never used Tobacco e-Cigarette/Vaping Use: Never Used Second Hand Smoke Exposure: No Use of substances other than those prescribed or required for medical reasons: No Have you been hit, kicked, punched, or otherwise hurt by someone within the past year? If so, by whom?: No Are you DNR?: No Advance Directives: No Advance Directives Information Provided: Yes Advance Directives on File: No Patient : No : No Poor oral hygiene: No service: No Current occupational status: employed Current occupational exposures/hazards: No Sexual orientation: Straight/Heterosexual Gender identity: Female Cognitive needs: No Hearing needs: No Vision needs: No Meds Allergies Allergy/AdvReac Type Severity Reaction Status Date / Time milk Allergy Gastrointestinal Verified 01/27/25 13:49 Upset Active Medications: Current Medications Albuterol Sulfate (Albuterol Sulfate (0.083%) 2.5 Mg/3 Ml Vial.Neb) 2.5 mg INHALE ONCE PRN PRN Reason: Shortness of Breath/Wheezing Lactated Ringer's (Lr) 1,000 mls @ 100 mls/hr IVCONT .Q10H [place] Last Admin: 01/31/25 07:50 Dose: 100 mls/hr Naloxone HCl (Naloxone Hcl 0.4 Mg/Ml Vial) 0.04 mg IVPUSH Q5M PRN PRN Reason: Excessive sedation or RR < 8 Home Medications ?Medication ?Instructions ?Recorded ?Confirmed ?Last Taken ?Type fluticasone fur. 200 mcg-umeclid 1 inh inhalation Q24H 08/13/24 01/27/25 Unknown History 62.5 mcg-vilant 25 mcg inhalat.powder (Trelegy Ellipta) Exam Height,Weight and Vital Signs: Height 5 ft 1 in Weight 64.9 kg Last Vital Signs Temp 97.3 F 01/31/25 07:40 Pulse 75 01/31/25 07:40 Resp 16 01/31/25 07:40 BP 116/57 L 01/31/25 07:40 Pulse Ox 94 01/31/25 07:40 O2 Del Method Room Air 01/31/25 07:40 Pertinent Lab Results Pertinent Lab Results: Laboratory Tests 01/31/25 07:43 POC Glucose 93 Airway Mallampati Class: II TM Dist: >3cm Neck ROM: Full Assessment and Plan Assessment Anesthesia Assessment: Anesthesia Plan Discussed and Chart Reviewed Final Anesthetic Review Family History of Problems with Anesthesia: No History of Problems with Anesthesia: No NPO: Yes ASA Class: III Final Preanesthetic Review: No Changes in Pt Med Stat, Meds/Allgs Chart Reviewed, Consent Obtained/Reviewed and Anes Risks/Benef Reviewed Patient Risk: Intermediate Procedure Risk: Intermediate Anesthetic Plan Anesthetic Plan: TIVA Disposition: Standard PACU
--- NOTE | 2025-01-31 09:10 | HO.OPN-COLON ---
Colonoscopy Operative Note Operative Note Date of Service: 01/31/25 Narrative: COLONOSCOPY TILL CECUM WITH SNARE POLYPECTOMY Pre-op diagnosis: Surveillance for colon polyps. Post-op diagnosis:? Colon polyps, Diverticulosis, hemorrhoids Endoscopist:? Marianna Galindo MD Anesthesia:?MAC Consent: Indications for the procedure and potential complications of bleeding, perforation, reaction to medications and missed diagnosis were discussed with the patient and informed consent was obtained. Instrument: Olympus PCF H 190 L variable stiffness pediatric colonoscope Monitoring: Vital signs and clinical assessment, intermittent blood pressure monitoring, continuous EKG monitoring, Pulse oximetry and Carbon Dioxide monitoring were done throughout the procedure. Please see anesthesia flowsheet. Colon withdrawl time was 12 minutes. Procedure: The patient was placed in the left lateral decubitis position and pre-procedure medications were administered. After a digital rectal examination of the ano-rectum, the video colonoscope was inserted into the rectum and advanced through the colon to the cecum. The colonoscope was slowly withdrawn in a retrograde panoramic fashion and the colon mucosa was carefully examined including a retroflexed view of the rectum. Findings and interventions are described below. Procedure Difficulty: Colon was long and tortuous and there was some loop formation. LLQ pressure was applied to intubate the cecum Findings: Terminal Ileum: Not evaluated Cecum: Normal Ascending Colon: Normal Transverse Colon: A 4-5 mm sessile polyp - removed with a cold snare. Descending Colon: Moderate diverticulosis Sigmoid Colon: Severe diverticulosis with luminal narrowing Rectum: Normal Ano-rectum: Small internal hemorrhoids Colon preparation: Excellent after some irrigation. Dinosaur Bowel Preparation Scale Right colon; 3 Transverse colon: 3 Left colon; 3 (0 = Unprepared colon segment with mucosa not seen due to solid stool that cannot be cleared. 1 = Portion of mucosa of the colon segment seen, but other areas of the colon segment not well seen due to staining, residual stool and/or opaque liquid. 2 = Minor amount of residual staining, small fragments of stool and/or opaque liquid, but mucosa of colon segment seen well. 3 = Entire mucosa of colon segment seen well with no residual staining, small fragments of stool or opaque liquid) Impression and Post Procedure Diagnosis: Colonoscopy Findings: One small polyp was removed Moderate to severe diverticulosis seen in the left colon small hemorrhoids on retroflexed exam. Plan: Pt has a FU appointment on 03/30/25 with Melisa Nix, GROUNDS RESTORATION SPECIALIST Repeat Colonoscopy in 5 years if polyps are adenomatous and due to a history of adenomatous colon polyps. Above findings were reviewed with the patient and relevant handouts were given and the discharge area.
[2025-01-31 09:15] VITALS: BP 104/62; PULSE 75; RESP 15; TEMP 36.6; O2SAT 96
[2025-01-31 09:30] VITALS: BP 116/72; PULSE 66; RESP 16; O2SAT 94
[2025-01-31 09:45] VITALS: BP 117/63; PULSE 74; RESP 16; TEMP 36.7; O2SAT 95
== END 2025-01-31 10:15 | disposition home or self-care (01) ==
PROVIDERS: PCP Family Medicine; Visit Provider Internal Medicine Gastroenterology
PROC: 0DJD8ZZ Inspection of Lower Intestinal Tract, Via Natural or Artificial Opening Endoscopic (ICD-10-PCS; CPT 45378; principal; 2025-01-31 08:30)
DX: Z12.11 Encounter for screening for malignant neoplasm of colon (principal); Z86.0101 Personal history of adenomatous and serrated colon polyps; D12.3 Benign neoplasm of transverse colon; R14.0 Abdominal distension (gaseous); K57.30 Diverticulosis of large intestine without perforation or abscess without bleeding; K64.8 Other hemorrhoids; K21.9 Gastro-esophageal reflux disease without esophagitis; K58.1 Irritable bowel syndrome with constipation; K59.04 Chronic idiopathic constipation; I10 Essential (primary) hypertension; E78.00 Pure hypercholesterolemia, unspecified; E11.9 Type 2 diabetes mellitus without complications; Z79.51 Long term (current) use of inhaled steroids; Z79.899 Other long term (current) drug therapy; Z91.011 Allergy to milk products
CPT/HCPCS: 45385; 82947; 88305; J2003; J2704

== ENCOUNTER → 2025-01-31 07:22 | Outpatient (BNV) | payer OTHER, SELFPAY | PROVIDERS: PCP Family Medicine; Visit Provider Internal Medicine Gastroenterology | DX: Z12.11 Encounter for screening for malignant neoplasm of colon (principal); D12.3 Benign neoplasm of transverse colon; K57.90 Diverticulosis of intestine, part unspecified, without perforation or abscess without bleeding; K64.8 Other hemorrhoids | CPT/HCPCS: 45385 ==

== ENCOUNTER 2025-02-03 08:14 | Outpatient (AMB) | payer OTHER, SELFPAY ==
--- NOTE | 2025-02-03 08:21 | A.OFFPC_ITS ---
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 Facility Examiner Required: No Is last menstrual period known: No Post menopausal: No Patient : No Allergies milk Allergy (Verified 02/03/25 08:27) Gastrointestinal Upset Medication List - Last Reconciled 02/03/25 by SYBIL Berry albuterol sulfate 90 mcg/actuation 2 inhalations inhalation Q4H PRN albuterol sulfate 2.5 mg (3 mL) inhalation Q4H PRN atorvastatin 20 mg PO BEDTIME 90 days cetirizine 10 mg PO DAILY 90 days famotidine 40 mg PO BEDTIME duszawlpaef-rqyhojdmj-ouszfvei 200-62.5-25 mcg (Trelegy Ellipta) 1 inh inhalation Q24H ibuprofen 600 mg PO Q8H PRN 14 days inhalational spacing device (Space Chamber) As directed with inhaler linaclotide (Linzess) 145 mcg PO QAM lisinopril 20 mg PO DAILY 90 days nebulizer accessories As directed nebulizer and compressor As directed semaglutide (Ozempic) 2 mg (0.75 mL) subcut QWEEK triamcinolone acetonide 0.5% 1 appl topical BID 7 days Tobacco use date assessed: 02/03/25 Dental Screening Dental Screen Date: 02/03/25 Did you have a dental visit in the last 12 months?: No Did you have a dental problem in the last 6 months where you did not have access to dental care?: No Was dental information given to patient?: No HPI HPI Comments History of Present Illness Details This is a 58-year-old female with a past medical history of Type II DM, hypertension, hyperlipidemia, tubular adenoma of the colon, asthma, idiopathic constipation and aortic stenosis presenting for a physical exam. HTN-Treated with lisinopril 20 mg. Hyperlipidemia is treated with atorvastatin 20 mg. Due for a cholesterol labs. [place] [facility] [place] She had a single tubular adenoma. Aortic stenosis-no dizziness, chest pain, leg swelling or syncope. She had her echocardiogram updated in September which showed mild aortic stenosis. Asthma- followed by pulmonology. Her asthma has been doing well. No interval ER visit or hospitalization. Patient is on Trelegy and albuterol as needed. S he declines influenza vaccine and pneumonia vaccine. She was diagnosed with type 2 diabetes in 01/10/2024 with a hemoglobin A1c of 6.7%. She is taking Ozempic 2 mg weekly. She is happy with her weight loss. She denies side effects. Last hemoglobin A1c was 5.8%. Her eye exam is scheduled. No known complications. Her right finger continues to cause pain and there is a small bump on the back o f it that appears to be getting larger. No numbness or tingling. No history of trauma. She had an unremarkable x-ray of the right hand in September 2024. Requests triamcinolone cream for dermatitis in her ears. Medication refilled. Potential side effects of topical steroids reviewed with the patient. Her group exercise instructor is Estella Grove, and she is UTD. Mammogram UTD September 2024. ROS: Constitutional: No unexplained weight loss, fever, chills, fatigue or night sweats. Eyes: No vision changes, blurry vision, double vision, eye pain, eye redness, eye discharge. ENT: No hearing loss, sneezing, congestion, runny nose or sore throat. Respiratory: No shortness of breath, cough or sputum production. Cardiovascular: No chest pain, chest pressure or chest discomfort. No palpitations or pedal edema. Gastrointestinal: No anorexia, nausea, vomiting or diarrhea. No abdominal pain or blood in stool. Genitourinary: No dysuria, hematuria, urinary frequency. Neurologic: No headache, dizziness, syncope, unilateral weakness, ataxia, numbness or tingling in the extremities. Musculoskeletal: See HPI Hematologic/Lymphatics: No bleeding or bruising. No painful lymph nodes. Skin: See HPI. Endocrine: No cold or heat intolerance. No polyuria or polydipsia. Psychiatric: No depression or anxiety. No SI/HI. Physical exam: Constitutional: Alert, in no distress. Head: Normocephalic. Eyes: Pupils are equal, round and reactive to light. Extraocular muscles intact. Ear, Nose and Throat: Dry skin in the ear canals bilaterally.. TMs normal. Normal nasal mucosa. No nasal discharge. No oral lesions. Neck: Supple, Full range of motion. No lymphadenopathy. No palpable thyroid masses. Respiratory: Clear to auscultation. Cardiovascular: S1 S2 regular. 2/6 systolic murmur.. No carotid bruits. Gastrointestinal: Abdomen soft, non-tender, non-distended. Normal bowel sounds. No palpable masses. Neurologic: No focal neurological deficits. Symmetric patellar reflexes. Moves all extremities spontaneously. Sensation intact bilaterally. Skin: Scattered martinez hemangiomas on the abdomen Musculoskeletal: There is a pea sized, mildly tender lump on the back of the right finger joint. No erythema or fluctuance. She has full range of motion of the fingers. Extremities: Warm and well perfused. No clubbing, cyanosis or edema. 3+ peripheral pulses bilaterally. Psychiatric: Normal mood and affect [facility] Medical History Encounter for well woman exam with routine gynecological exam Right hand pain Right knee pain Diarrhea Right-sided back pain Acute right flank pain Otitis media Muscle strain Neck pain Back pain Murmur Right otitis media Controlled type 2 diabetes mellitus Dermatitis of ear canal Breast cancer screening by mammogram Screening for cervical cancer Screening for colon cancer Adult general medical examination Bunion Essential hypertension Surgical History History of bunionectomy of both great toes History of esophagogastroduodenoscopy (EGD) Hx of tonsillectomy History of colonoscopy with polypectomy Hx of section Family History Mother Diabetes Brother Diabetes Sister Diabetes Social History Household Members: None Caregiver staying overnight: No Housing: Apartment Are you a primary administrator health care facility to a significant other at home: No Do you presently have visiting nurse or other home services: No 75 years or older and lives alone: No Alcohol intake: never Patient Tobacco Use Status: Never used Tobacco e-Cigarette/Vaping Use: Never Used Second Hand Smoke Exposure: No service: No Current occupational status: employed Current occupational exposures/hazards: No Sexual orientation: Straight/Heterosexual Gender identity: Female Cognitive needs: No Hearing needs: No Vision needs: No Female Reproductive History Menstrual Age of Menarche: 12 Questionnaire PHQ-9 Over the last 2 weeks, how often have you been bothered by any of the following problems? 1. Little interest or pleasure in doing things: not at all 2. Feeling down, depressed, or hopeless: not at all 3. Trouble falling or staying asleep, or sleeping too much: not at all 4. Feeling tired or having little energy: not at all 5. Poor appetite or overeating: not at all 6. Feeling bad about yourself - or that you are a failure or have let yourself or your family down: not at all 7. Trouble concentrating on things, such as reading the newspaper or watching television: not at all 8. Moving or speaking so slowly that other people could have noticed. Or the opposite - being so fidgety or restless that you have been moving around a lot more than usual: not at all 9. Thoughts that you would be better off or of hurting yourself in some way: not at all Total score: 0 Depression Screening Interpretation: Negative Depression Screening Done: Yes 60494 - PHQ-9 Billing: Yes Source: Developed by Drs. Jaime Stephens, Halle Guevara, Hola Harmon and colleagues, with an educational socorro from [employer]. Thrive Questionnaire Date Thrive assessed: 06/24/24 I am a: Patient What is your living situation today?: I have a steady place to live Within the past 12 months, did the food you bought not last and you didn't have the money to get more?: I choose not to answer this question Within the past 12 months, did you worry whether your food would run out before you got money to buy more?: I choose not to answer this question Do you have trouble paying for medicines?: No Do you have trouble getting transportation to medical appointments?: No Do you have trouble paying your heating and electricity bill?: No Do you have trouble taking care of your child, family member or friend?: No Do you have trouble with day-to-day activities such as bathing, preparing meals, shopping, managing finances, etc.?: No Are you currently unemployed and looking for a job?: No Are you interested in more education?: No Please select the resources that you would like help with: None Currently or been in a relationship where the following occur: I choose not to answer THRIVE Score: 0 AUDIT C Alcohol Use Questionnaire (AUDIT-C) 1. How often do you have a drink containing alcohol?: Never 3. How often do you have six or more drinks on one occasion?: Never Total Score: 0 Score Reviewed/Action Taken: Yes GOKUL-7 AMB Questionnaire GOKUL-7 Date GOKUL - 7 assessed: 02/03/25 Feeling nervous, anxious, or on edge: 0 = Not at all Not being able to stop or control worryin = Not at all Worrying too much about different things: 0 = Not at all Trouble relaxin = Not at all Being so restless that it is hard to sit still: 0 = Not at all Becoming easily annoyed or irritable: 0 = Not at all Feeling afraid as if something awful might happen: 0 = Not at all Total GOKUL-7 score (0-4 normal; 5-9 mild; 10-14 moderate; 15-21 severe): 0 Source: Developed by Drs. Jaime Stephens, Halle Guevara, Hola Harmon and colleagues, with an educational socorro from [employer]. GOKUL-7 Assessment Billing GOKUL-7 Assessment Tool: GOKUL-7 Assessment 56932 ACT Questionnaire In the past 4 weeks, how much of the time did your asthma keep you from getting as much done at work, school or at home?: None of the time During the past 4 weeks, how often have you had shortness of breath?: Not at all During the past 4 weeks, how often did your asthma symptoms wake you up at night or earlier than usual in the morning?: Not at all During the past 4 weeks, how often have you had to use your rescue inhaler or nebulizer medication?: Not at all How would you rate your asthma control during the past 4 weeks?: Completely controlled Score: 25 Physical exam (Primary Care) Vital Signs: Last Vital Signs Temp 98.2 F 02/03/25 08:28 Pulse 77 02/03/25 08:28 Resp 16 02/03/25 08:28 BP 128/78 02/03/25 08:28 Pulse Ox 96 02/03/25 08:28 Oxygen Delivery Method Room Air 02/03/25 08:28 BMI result Body Mass Index 27.6 Tobacco/Smoking Status: Tobacco use Status Tobacco use date assessed 02/03/25 02/03/25 08:33 Patient Tobacco Use Status Never used Tobacco 02/03/25 08:23 e-Cigarette/Vaping Use Never Used 02/03/25 08:23 PHQ-9: PHQ-9 Score PHQ-9: Total score 0 02/03/25 08:33 Depression Screening Interpretation: Negative Thrive Assessment: Date of Thrive Assessment Date Thrive assessed 06/24/24 02/03/25 08:23 Currently or been in a relationship where the following occur: I choose not to answer Coding Level of Care Code Est Pt Prev Care 40-64y(12193) Diagnoses Routine physical examination Z00.00 Hypercholesterolemia E78.00 Nonrheumatic aortic valve stenosis I35.0 Cardiac valve disease etiology: nonrheumatic Mild intermittent asthma with acute exacerbation J45.21 Asthma severity: mild Asthma persistence: intermittent Asthma complication type: with acute exacerbation Controlled type 2 diabetes mellitus E11.9 Finger pain, right M79.644 Additional Codes GOKUL-7 Assessment Billing - GOKUL-7 Assessment Tool: GOKUL-7 Assessment 92423 ([id number]) PHQ-9 - 50701 - PHQ-9 Billing: Yes ([id number]) Assessment & Plan Assessment & Plan (1) Routine physical examination: Code(s): Z00.00 - Encounter for general adult medical examination without abnormal findings Plan: Patient is seen today for a routine physical. As part of this visit we reviewed the following issues, which are considered and essential part of preventative health in this age group: - Breast Cancer screening - Annual Splash Line Operator exam - Screening for colon cancer - Blood pressure screening annually - Cholesterol screening - Osteoporosis prevention including calcium/vitamin D intake, weight bearing exercise & smoking cessation - Nutritional and exercise counseling - Counseling of injury prevention including fire prevention, smoke alarms and seat belt usage - Screening for depression - Education about skin cancer - Recommendations about immunizations - Recommendation of an eye exam - Screening for substance abuse (2) Hypercholesterolemia: Code(s): E78.00 - Pure hypercholesterolemia, unspecified Category: Medical Plan: Continue statin. Recommended Mediterranean diet. (3) Aortic stenosis: Code(s): I35.0 - Nonrheumatic aortic (valve) stenosis Category: Medical Qualifiers: Cardiac valve disease etiology: nonrheumatic Qualified Code(s): I35.0 - Nonrheumatic aortic (valve) stenosis Plan: Surveillance echocardiogram up-to-date and stable with mild aortic stenosis. (4) Asthma: Code(s): J45.909 - Unspecified asthma, uncomplicated Category: Medical Qualifiers: Asthma severity: mild Asthma persistence: intermittent Asthma complication type: with acute exacerbation Qualified Code(s): J45.21 - Mild intermittent asthma with (acute) exacerbation Plan: Followed by pulmonology. Stable. Continue current medications. (5) Controlled type 2 diabetes mellitus: Code(s): E11.9 - Type 2 diabetes mellitus without complications Category: Medical Plan: Recommended annual eye exam, low carb/low sugar diet. Avoid alcohol. Complications reviewed with the patient of type 2 diabetes. Continue Ozempic to 2 mg weekly to promote weight loss. Eye exam scheduled. (6) Finger pain, right: Code(s): M79.644 - Pain in right finger(s) Category: Medical Plan: Ganglion cyst suspected. Referred to hand surgeon. Plan Follow up in 3 months for diabetes. Orders: Orders Vitamin D 25-OH (D2 and D3) Today E78.00 - Pure hypercholesterolemia, unspecified, E78.6 - Lipoprotein deficiency, E83.52 - Hypercalcemia, I10 - Essential (primary) hypertension, M85.80 - Other specified disorders of bone density and structure, unspecified site Lipid Panel Today E78.00 - Pure hypercholesterolemia, unspecified, E78.5 - Hyperlipidemia, unspecified, E78.6 - Lipoprotein deficiency, E83.52 - Hypercalcemia, I10 - Essential (primary) hypertension Microalbumin, Random (w Creat) Today E11.9 - Type 2 diabetes mellitus without complications, E78.00 - Pure hypercholesterolemia, unspecified, E78.6 - Lipoprotein deficiency, E83.52 - Hypercalcemia, I10 - Essential (primary) hypertension Hemoglobin A1c Today E78.00 - Pure hypercholesterolemia, unspecified, E78.6 - Lipoprotein deficiency, E83.52 - Hypercalcemia, I10 - Essential (primary) hypertension, R73.9 - Hyperglycemia, unspecified Comprehensive Met. Panel Today E78.00 - Pure hypercholesterolemia, unspecified, E78.6 - Lipoprotein deficiency, E83.52 - Hypercalcemia, I10 - Essential (primary) hypertension Vitamin B12 Today E78.00 - Pure hypercholesterolemia, unspecified, E78.6 - Lipoprotein deficiency, E83.52 - Hypercalcemia, I10 - Essential (primary) hypertension, Z91.89 - Other specified personal risk factors, not elsewhere classified Complete Blood Count no Diff Today E78.00 - Pure hypercholesterolemia, unspecified, E78.6 - Lipoprotein deficiency, E83.52 - Hypercalcemia, I10 - Essential (primary) hypertension TDaP Immunization Today Z23 - Encounter for immunization Referrals Hand Surgery Referral M79.204 - Pain in right finger(s) Medications: New Boostrix Tdap (diphth,pertus(acell),tetanus) 0.5 mL IM ONCE 0.5 mL 0RF NS Z23 - Encounter for immunization triamcinolone acetonide 0.5% 1 appl topical BID 15 grams 3RF 7 days
--- OUTSIDE RECORDS SUMMARY | 2025-02-03 08:25 | XMS_ITS | Clinical Summary ---
Author Organization [employer] Address [address] [facility] [address] [place] [address] Care Team Providers Care Hog Stomach Preparer Name Role Phone Unavailable Primary Care Provider [...]
[2025-02-03 08:28] VITALS: BP 128/78; PULSE 77; RESP 16; TEMP 36.8; O2SAT 96; BMI 27.6
== END 2025-02-03 09:04 | disposition home or self-care (01) ==
LOC: HO.HMCFM 08:18
PROVIDERS: PCP Physician Assistant Medical; Visit Provider Physician Assistant Medical
DX: Z00.00 Encounter for general adult medical examination without abnormal findings (principal); E78.00 Pure hypercholesterolemia, unspecified; I35.0 Nonrheumatic aortic (valve) stenosis; J45.21 Mild intermittent asthma with (acute) exacerbation; E11.9 Type 2 diabetes mellitus without complications; M79.644 Pain in right finger(s); Z23 Encounter for immunization

== ENCOUNTER → 2025-02-03 08:14 | Outpatient (BNVA) | payer OTHER, SELFPAY | PROVIDERS: PCP Physician Assistant Medical; Visit Provider Physician Assistant Medical | DX: Z00.00 Encounter for general adult medical examination without abnormal findings (principal); Z23 Encounter for immunization; E78.00 Pure hypercholesterolemia, unspecified; I35.0 Nonrheumatic aortic (valve) stenosis; J45.21 Mild intermittent asthma with (acute) exacerbation; E11.9 Type 2 diabetes mellitus without complications; M79.644 Pain in right finger(s); Z79.899 Other long term (current) drug therapy; Z13.31 Encounter for screening for depression; Z13.39 Encounter for screening examination for other mental health and behavioral disorders | CPT/HCPCS: 90471; 90715; 96127; 96160; 99396 ==

== ENCOUNTER 2025-02-08 07:18 | Outpatient (REF) | payer OTHER, SELFPAY ==
[2025-02-08 08:13] LABS: Hematocrit 41.6 % (37.0-47.0); Hemoglobin 14.0 g/dl (12.0-16.0); Mean Corpuscular HGB Conc 33.7 g/dl (31.0-35.0); Mean Corpuscular Hemoglobin 29.0 pg (27.0-33.0); Mean Corpuscular Volume 86.1 fL (80.0-98.0); NRBC Abs Auto 0.000 X10*3/uL (0.0-0.012); NRBC Pct Auto 0.0 /100WBC (0.0-0.2); Platelet Count 246 X10*3/uL (160-400); Red Blood Count 4.83 X10*6/uL (4.20-5.50); White Blood Count 3.8 X10*3/uL (4.8-10.8)
[2025-02-08 08:33] LABS: Hemoglobin A1C 147.5802 umol/L; Total Hemoglobin (HGBA1C) 3693.5927 umol/L
[2025-02-08 08:52] LABS: Alanine Aminotransferase 27 U/L (0-31); Albumin Level 4.5 g/dL (3.5-5.0); Alkaline Phosphatase 145 U/L (39-117); Anion Gap 11 (12-20); Aspartate Amino Transferase 37 U/L (5-31); Blood Urea Nitrogen 14 mg/dL (9-16); Calcium 9.4 mg/dL (8.4-10.2); Carbon Dioxide 27 mmol/L (22-29); Chloride 106 mmol/L (96-108); Cholesterol 190 mg/dL (<200); Estimated Glomerular Filt Rate > 60; HDL Cholesterol 35 mg/dL (>40); Potassium 4.4 mmol/L (3.3-5.1); Sodium 140 mmol/L (135-145); Total Protein 7.4 g/dL (6.5-8.0); Triglycerides 144 mg/dL (<150)
[2025-02-08 09:05] LABS: Vitamin B12 632 pg/mL (200-900)
[2025-02-08 09:34] LABS: Microalbum/Creatinine Ratio Ur 9.0 ug/mg cr (<30)
[2025-02-16 12:08] LABS: Vitamin D 25-OH, D2 <4 ng/mL; Vitamin D 25-OH, D3 30 ng/mL; Vitamin D 25-OH, Total 30 ng/mL (30-100)
== END 2025-02-08 07:19 | disposition home or self-care (01) ==
LOC: HO.LAB 07:18
PROVIDERS: Visit Provider Physician Assistant Medical
DX: I10 Essential (primary) hypertension (principal); E11.9 Type 2 diabetes mellitus without complications; E78.6 Lipoprotein deficiency; E83.52 Hypercalcemia; M85.80 Other specified disorders of bone density and structure, unspecified site; E78.00 Pure hypercholesterolemia, unspecified; Z91.89 Other specified personal risk factors, not elsewhere classified
CPT/HCPCS: 36415; 80053; 80061; 82043; 82306; 82570; 82607; 83036; 85027

== ENCOUNTER 2025-03-23 14:15 | Outpatient (REF) | payer OTHER, SELFPAY ==
--- NOTE | ~2025-03-23 | XR_ITS ---
EXAMINATION: XR HAND 3 OR MORE VIEWS RIGHT HISTORY: M79.641 - Pain in right hand COMPARISON: Comparison is made with the prior examination dated 09/25/2024. FINDINGS: Three views of the right hand are submitted. Osseous mineralization is normal. There is no fracture or dislocation. The joint spaces are preserved. The soft tissues are unremarkable. XR/XR hand RT min 3V IMPRESSION: Unremarkable examination of the right hand. Electronically signed by: Jaime Fields MD 03/23/2025 02:59 PM EDT
--- OUTSIDE RECORDS SUMMARY | 2025-03-23 15:29 | XMS_ITS | Encounter Summary ---
Author Organization [facility] Address [address] [facility] [address] [place] [address] Care Team Providers Care Commutator Presser Name Role Phone Unavailable Primary Care Provider [...]
--- OUTSIDE RECORDS SUMMARY | 2025-03-23 15:29 | XMS_ITS | Clinical Summary ---
Author Organization [email or web address] Address [address] [facility] [address] [place] [address] Care Team Providers Care Technical Proposal Writer Name Role Phone Unavailable Primary Care [...] COVID-19 Vaccine ( - 2023-2 5 season) 2025 Influenza Vaccine (#1) 2025 RSV Patients and [...]
== END 2025-03-23 14:16 | disposition home or self-care (01) ==
LOC: HO.HOSX 14:15
DX: M67.441 Ganglion, right hand (principal)
CPT/HCPCS: 73130; 99202

== ENCOUNTER 2025-03-23 14:23 | Outpatient (AMB) | payer OTHER, SELFPAY ==
--- NOTE | 2025-03-23 14:29 | MHC.OFFVIS ---
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 Per referring provider, there is a small bump on the dorsal aspect of the right index finger that appears to be getting larger. No associated numbness or tingling. Patient report the bump on her right index finger has slightly shrunk however with flexion and extension of her finger or when she has to open things she gets sudden pain at the 2nd right hand PIP joint on dorsal aspect. Patient states she is pre-diabetic. Last A1c was done on 02/08/25 was 5.8. 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 Per referring provider, there is a small bump on the dorsal aspect of the PIP joint of the right index finger that appears to be getting larger. No associated numbness or tingling. Patient report the bump on her right index finger has slightly shrunk however with flexion and extension of her finger or when she has to open things she gets sudden pain at the 2nd right hand PIP joint on dorsal aspect. Patient states she is pre-diabetic. Last A1c was done on 02/08/25 was 5.8. [facility] Medical History Elevated liver enzymes Finger pain, right Encounter for well woman exam with routine gynecological exam Right hand pain Right knee pain Diarrhea Right-sided back pain Acute right flank pain Otitis media Muscle strain Neck pain Back pain Murmur Right otitis media Controlled type 2 diabetes mellitus Dermatitis of ear canal Breast cancer screening by mammogram Screening for cervical cancer Screening for colon cancer Adult general medical examination Bunion Essential hypertension Surgical History History of bunionectomy of both great toes History of esophagogastroduodenoscopy (EGD) Hx of tonsillectomy History of colonoscopy with polypectomy Hx of section Family History Mother Diabetes Brother Diabetes Sister Diabetes Social History Household Members: None Caregiver staying overnight: No Housing: Apartment Are you a primary child care team lead to a significant other at home: No Do you presently have visiting nurse or other home services: No 75 years or older and lives alone: No Alcohol intake: never Patient Tobacco Use Status: Never used Tobacco e-Cigarette/Vaping Use: Never Used Second Hand Smoke Exposure: No service: No Current occupational status: employed Current occupational exposures/hazards: No Sexual orientation: Straight/Heterosexual Gender identity: Female Cognitive needs: No Hearing needs: No Vision needs: No Female Reproductive History Menstrual Age of Menarche: 12 Review of Systems Const All systems reviewed & are unremarkable except as noted in HPI and below Physical Exam Vital Signs: BMI result Body Mass Index 26.8 Extrem Other: Patient is alert, oriented, and in no acute distress. Neuro: Normal sensation of the tips of all digits of the right hand at this time Vascular: Cap refill brisk Pain: No tenderness to palpation about PIP joint of right index finger ROM: Patient is able to make a closed fist and extend all digits of the right hand fully Skin: No lacerations or abrasions. General: On palpation, there is a very small, approximately 0.25 cm in diameter mass noted of the dorsal aspect of the right index finger consistent with deflated ganglion cyst No ecchymosis, erythema, or evidence of infection. Psych: Appears grossly normal Affect normal Attitude cooperative Assessment & Plan Assessment & Plan (1) Ganglion cyst of finger of right hand: Code(s): M67.441 - Ganglion, right hand Category: Medical Plan 1. Ganglion cyst of right index finger Patient is educated about this condition Patient is educated about the treatment options available At this time, I do not feel that there is a large enough mass in the right index finger to be able to remove surgically or to attempt aspiration Therefore, patient is provided with Coban to apply gentle compression of the area to encourage the cyst to not refill with joint fluid Patient is educated that she should call our office for reassessment if she notices this is growing larger, more painful, or demonstrating any signs or symptoms of infection Patient understands this and is amenable to this plan Follow-up as needed Orders: Orders XR hand RT min 3V 03/23/25 M79.641 - Pain in right hand Coding Level of Care Code New Pt Level 3 (68963) Diagnoses Ganglion cyst of finger of right hand M67.441
[2025-03-23 14:55] VITALS: BMI 26.8
== END 2025-03-23 15:21 | disposition home or self-care (01) ==
LOC: HO.HOS 14:24
PROVIDERS: PCP Physician Assistant Medical
DX: M67.441 Ganglion, right hand (principal)
CPT/HCPCS: 99203

== ENCOUNTER → 2025-03-23 14:28 | Outpatient (BNV) | payer OTHER, SELFPAY | PROVIDERS: Visit Provider Radiology Diagnostic Radiology | DX: M79.641 Pain in right hand (principal) | CPT/HCPCS: 73130 ==

== ENCOUNTER 2025-03-30 13:48 | Outpatient (AMB) | payer OTHER, SELFPAY ==
--- NOTE | 2025-03-30 13:52 | MHC.OFFVIS ---
Vital Signs 03/30/25 13:59 Height 5 ft 1 in Weight 144 lb 9.972 oz BMI 27.3 BP 117/65 Blood Pressure Location Lt brachial Position Sitting Pulse 72 Intake Visit Reasons: CIC Intake Note: Patient in follow up s/p colonoscopy. CC: She continues having constipation sometimes. She reports heartburn if she forgets to take the Famotidine. PT states that abd pain is better. Library Circulation Technician Required: No Accompanied by: Self / Same As Patient Allergies milk Allergy (Verified 03/30/25 14:02) Gastrointestinal Upset HPI HPI CIC: Details: Assessment & Plan (1) Chronic idiopathic constipation: Code(s): K59.04 - Chronic idiopathic constipation Category: Medical (2) Tubular adenoma of colon: Comment: 2021 scope 3 polyps 1, 10 mm repeat in 3 years Code(s): D12.6 - Benign neoplasm of colon, unspecified Category: Medical Plan The amitiza at [facility] [place] did not work. Again she did well on Linzess, but she had a high copay. I go on the website and get her another copay card - ? if she will need to do pt assistance. ROV 6 weeks. Medications: New linaclotide (Linzess) Take first thing in the morning with a full glass of water. 145 mcg PO QAM 30 caps 6RF K58.1 - Irritable bowel syndrome with constipation Discontinued lubiprostone Discontinued Reason: Patient no longer taking 24 mcg PO BID 30 days 60 caps 6RF K59.04 - Chronic idiopathic constipation COLONOSCOPY 01/31/25 Findings: Terminal Ileum: Not evaluated Cecum: Normal Ascending Colon: Normal Transverse Colon: A 4-5 mm sessile polyp - removed with a cold snare. Descending Colon: Moderate diverticulosis Sigmoid Colon: Severe diverticulosis with luminal narrowing Rectum: Normal Ano-rectum: Small internal hemorrhoids Impression and Post Procedure Diagnosis: Colonoscopy Findings: One small polyp was removed Moderate to severe diverticulosis seen in the left colon small hemorrhoids on retroflexed exam. Plan: Pt has a FU appointment on 03/30/25 with Melisa Nix NP Repeat Colonoscopy in 5 years if polyps are adenomatous and due to a history of adenomatous colon polyps. BIOPSY Received: 01/31/25 Diagnosis Colon, transverse, polypectomy: Tubular adenoma; negative for high-grade dysplasia [facility] Medical History Elevated liver enzymes Finger pain, right Encounter for well woman exam with routine gynecological exam Right hand pain Right knee pain Diarrhea Right-sided back pain Acute right flank pain Otitis media Muscle strain Neck pain Back pain Murmur Right otitis media Controlled type 2 diabetes mellitus Dermatitis of ear canal Breast cancer screening by mammogram Screening for cervical cancer Screening for colon cancer Adult general medical examination Bunion Essential hypertension Surgical History History of bunionectomy of both great toes History of esophagogastroduodenoscopy (EGD) Hx of tonsillectomy History of colonoscopy with polypectomy Hx of section Family History Mother Diabetes Brother Diabetes Sister Diabetes Social History Household Members: None Caregiver staying overnight: No Housing: Apartment Are you a primary daycare teacher to a significant other at home: No Do you presently have visiting nurse or other home services: No 75 years or older and lives alone: No Alcohol intake: never Patient Tobacco Use Status: Never used Tobacco e-Cigarette/Vaping Use: Never Used Second Hand Smoke Exposure: No service: No Current occupational status: employed Current occupational exposures/hazards: No Sexual orientation: Straight/Heterosexual Gender identity: Female Cognitive needs: No Hearing needs: No Vision needs: No Female Reproductive History Menstrual Age of Menarche: 12 Review of Systems Const Denies fatigue, Denies fever(s), Denies night sweats, Denies poor appetite and Denies weight loss ENT Reports Normal hearing present, Denies dental pain, Denies dysphagia, Denies hearing loss, Denies mouth pain, Denies odynophagia, Denies throat swelling, Denies tongue swelling and Reports other (Dentition adequate) Card Reports no additional complaints Resp Reports no additional complaints GI Details: Denies abdominal pain, Denies melena, Denies bloating, Denies hematochezia, Reports constipation, Denies GI cramping, Denies dysphagia, Denies excessive flatus, Denies early satiety, Reports heartburn, Denies diarrhea, Denies nausea, Denies odynophagia, Denies vomiting and Denies hematemesis Skin/Breast Denies pruritus, Denies lesions, Denies rash and Denies jaundice Neuro Reports Normal hearing present and Denies Abnormal speech present Endo Denies fatigue Aller/Immun Denies throat swelling and Denies tongue swelling Physical Exam Vital Signs: Last Vital Signs Pulse 72 03/30/25 13:59 BP 117/65 03/30/25 13:59 BMI result Body Mass Index 27.3 Const General: cooperative, no acute distress, well developed and well groomed Nutritional Appearance: well nourished and overweight Orientation/consciousness: oriented to person, oriented to place and oriented to time Limitations: No language barrier HEENT Head: Yes normocephalic and Yes atraumatic Eyes General: appearance normal, both eyes and all related structures Pupils: Equal, round and reactive pupils present Neck Neck: Yes normal visual inspection and Yes no lymphadenopathy Thyroid: Thyroid normal Resp Effort & Inspection: normal respiratory effort and able to speak in complete sentences Auscultation: clear to auscultation bilaterally Cardio Rate: regular rate Rhythm: regular rhythm Heart sounds: Normal, physiologic split S2 sound present Peripheral pulses: radial pulses present and posterior tibial pulses present GI Inspection: No distended and No Abdominal panniculus present Palpation (GI): Soft to palpation, nontender, no guarding, not rigid and No hepatosplenomegaly present Percussion: Yes normal to percussion Auscultation: normal bowel sounds Rectal Exam - Female: deferred Skin General skin exam: no rashes or lesions noted, turgor normal, skin not dry, no jaundice, No spider nevi and no striae Rashes: no rashes Nails: normal Neuro General: oriented to person, oriented to place and oriented to time Cranial nerves: Yes Equal, round and reactive pupils present and Yes Normal hearing present Speech: No Abnormal speech present Extrem General: Yes normal to inspection, No clubbing, No cyanosis and No edema Psych Appearance: grossly normal and well kempt Mental Status: mental status grossly normal Speech and movement: Normal speech and movement present Affect: normal affect Attitude: cooperative Thought process: Normal thought process present and not confabulating Thought content: Normal thought content present Insight: Good insight present (Psych) Judgement: Good judgement present (Psych) Assessment & Plan Assessment & Plan (1) Tubular adenoma of colon: Comment: 01/2025=TA repeat 5 years; 2021 scope 3 polyps 1, 10 mm repeat in 3 years Code(s): D12.6 - Benign neoplasm of colon, unspecified Category: Medical (2) GERD (gastroesophageal reflux disease): Code(s): K21.9 - Gastro-esophageal reflux disease without esophagitis Category: Medical (3) Chronic idiopathic constipation: Code(s): K59.04 - Chronic idiopathic constipation Category: Medical Plan Linzess 145mcg was her last GI regimen along with famotidine. She is agreeable to a 5 year follow-up to her colonoscopy. The procedure was well tolerated. The results were explained and the patient is agreeable to the follow-up interval as stated. The bowel pattern has returned to normal. Education was provided to tell any 1st degree relatives about their findings to be sure that they are screened by age 45. Educated that they will be put on a recall list when it is time for their repeat scope but should they move out of state or away from the hospital they will need to remember along with their primary to repeat the procedure in a timely fashion to avoid any adverse complications. She feels that the Linzess helped somewhat but it is not always as effective as she would like. I tell her that we could do a dose increase and she would like to try this. We will bring her to the 290 micro g dose and titrate to affect her side effect. Return office visit in 8 weeks Medications: New linaclotide (Linzess) 290 mcg PO QAM 30 caps 6RF 30 days K59.04 - Chronic idiopathic constipation Refilled famotidine 40 mg PO BEDTIME 90 tabs 2RF K21.9 - Gastro-esophageal reflux disease without esophagitis Discontinued linaclotide (Linzess) Take first thing in the morning with a full glass of water. Discontinued Reason: Doctor's Order 145 mcg PO QAM 30 caps 6RF K58.1 - Irritable bowel syndrome with constipation Coding Level of Care Code Est Pt Level 3 (06095) Diagnoses Tubular adenoma of colon D12.6 GERD (gastroesophageal reflux disease) K21.9 Chronic idiopathic constipation K59.04
[2025-03-30 13:59] VITALS: BP 117/65; PULSE 72; BMI 27.3
== END 2025-03-30 14:12 | disposition home or self-care (01) ==
LOC: HO.HGI 13:49
PROVIDERS: PCP Family Medicine; Visit Provider Nurse Practitioner
DX: D12.6 Benign neoplasm of colon, unspecified (principal); K21.9 Gastro-esophageal reflux disease without esophagitis; K59.04 Chronic idiopathic constipation
CPT/HCPCS: 99213

== ENCOUNTER → 2025-03-30 13:48 | Outpatient (BNVA) | payer OTHER, SELFPAY | PROVIDERS: PCP Family Medicine; Visit Provider Nurse Practitioner | DX: K59.04 Chronic idiopathic constipation (principal); K21.9 Gastro-esophageal reflux disease without esophagitis; D12.6 Benign neoplasm of colon, unspecified | CPT/HCPCS: 99212 ==

== ENCOUNTER 2025-04-05 13:24 | Outpatient (REF) | payer OTHER, SELFPAY ==
[2025-04-06 11:36] LABS: Chlamydia pneumoniae PCR Not Detected (Not Detect.); Coronavirus 229E PCR Not Detected (Not Detect.); Coronavirus HKU1 PCR Not Detected (Not Detect.); Coronavirus NL63 PCR Not Detected (Not Detect.); Coronavirus OC43 PCR Not Detected (Not Detect.); RSV PCR Not Detected (Not Detect.); Rhino/Enterovirus PCR Not Detected (Not Detect.)
[2025-04-06 11:45] LABS: SARS-CoV-2 PCR Not Detected (Not Detect.)
[2025-04-06 11:46] LABS: Influenza A H1 PCR Not Detected (Not Detect.); Influenza A H1-2009 PCR Not Detected (Not Detect.); Influenza A H3 PCR Not Detected (Not Detect.)
== END 2025-04-05 13:25 | disposition home or self-care (01) ==
LOC: HO.LNP 13:24
PROVIDERS: PCP Physician Assistant Medical; Visit Provider Physician Assistant Medical
DX: R09.81 Nasal congestion (principal); R51.9 Headache, unspecified; H93.8X3 Other specified disorders of ear, bilateral; Z79.51 Long term (current) use of inhaled steroids; Z79.899 Other long term (current) drug therapy
CPT/HCPCS: 87633; 99212

== ENCOUNTER 2025-04-05 13:24 | Outpatient (AMB) | payer OTHER, SELFPAY ==
[2025-04-05 13:38] VITALS: BP 136/90; PULSE 102; TEMP 36.8; O2SAT 100; BMI 27.4
--- NOTE | 2025-04-05 13:38 | AM.OFFWIN_ITS ---
Intake Vital Signs 04/05/25 13:38 Height 5 ft 1 in Weight 145 lb BMI 27.4 BP 136/90 H Blood Pressure Location Lt brachial Position Sitting Pulse 102 H Pulse Source Pulse Oximeter Temp 98.2 F Temp Source Oral Pulse Oximetry (%) 100 Oxygen Delivery Method Room Air Intake Visit Reasons: EP-head pressure, jaw pain Intake Note: pt presents with face and right sided head pain/hypersensitivity for 3 days Patient Tobacco Use Status: Never used Tobacco Allergies milk Allergy (Verified 04/05/25 13:39) Gastrointestinal Upset Do you need a note to return to daycare/school/sports/work: No HPI HPI Comments History of Present Illness Details History of Present Illness - The patient is a 59-year-old female pr esenting with sinus congestion and pain. - She reports a 10-day history of illnes s, initially presenting as a cold, now with head tenderness and ear discomfort. - Symptoms include congestion without th ick nasal discharge, no fever, and mild facial pain on bending forward. - She has a history of sinus infections and is currently using Flonase and Zyrtec. - She denies fever, chills, cough, CP, S OB, abd pain, or n/v/d. Physical Exam General: Cooperative, healthy appearing, comfortable, no acute distress and well developed Orientation: Patient oriented x3 Limitations: No limitations Head: Tenderness on palpation of the skull Ears: Hearing grossly normal bilaterally, but patient reports ear discomfort Nose: Normal external nose present, no thick nasal discharge Face and sinus: Mild facial pain when bending forward, tenderness noted Eyes: Appearance normal, both eyes and all related structures Neck: Normal visual inspection and Yes full ROM Respiratory: Normal respiratory effort and able to speak in complete sentences. Clear to auscultation bilaterally Cardiovascular: Regular rate and rhythm. Normal S1 and S2 GI: Normal to inspection. Soft to palpation and nontender Skin: No rashes or lesions noted Neuro: Patient oriented x3 Extremities: Normal to inspection Patient was informed and verbally consented to the use of an ambient scribe for clinic note documentation during this visit. [facility] Medical History Elevated liver enzymes Finger pain, right Encounter for well woman exam with routine gynecological exam Right hand pain Right knee pain Diarrhea Right-sided back pain Acute right flank pain Otitis media Muscle strain Neck pain Back pain Murmur Right otitis media Controlled type 2 diabetes mellitus Dermatitis of ear canal Breast cancer screening by mammogram Screening for cervical cancer Screening for colon cancer Adult general medical examination Bunion Essential hypertension Surgical History History of bunionectomy of both great toes History of esophagogastroduodenoscopy (EGD) Hx of tonsillectomy History of colonoscopy with polypectomy Hx of section Family History Mother Diabetes Brother Diabetes Sister Diabetes Social History Household Members: None Caregiver staying overnight: No Housing: Apartment Are you a primary congregational care pastor to a significant other at home: No Do you presently have visiting nurse or other home services: No 75 years or older and lives alone: No Alcohol intake: never Patient Tobacco Use Status: Never used Tobacco e-Cigarette/Vaping Use: Never Used Second Hand Smoke Exposure: No service: No Current occupational status: employed Current occupational exposures/hazards: No Sexual orientation: Straight/Heterosexual Gender identity: Female Cognitive needs: No Hearing needs: No Vision needs: No Female Reproductive History Menstrual Age of Menarche: 12 Review of Systems Const All systems reviewed & are unremarkable except as noted in HPI and below Physical Exam Vital Signs: Last Vital Signs Temp 98.2 F 04/05/25 13:38 Pulse 102 H 04/05/25 13:38 BP 136/90 H 04/05/25 13:38 Pulse Ox 100 04/05/25 13:38 Oxygen Delivery Method Room Air 04/05/25 13:38 BMI result Body Mass Index 27.4 Assessment & Plan Assessment & Plan (1) Sinus congestion: Code(s): R09.81 - Nasal congestion Plan Most likely URI vs sinusitis vs covid vs RSV vs flu vs viral illness Plan - A nasal swab was taken for testing to confirm the diagnosis. - The patient was prescribed a five-day course of prednisone and a seven-day course of antibiotics to address the sinusitis. - The patient was advised to continue using Flonase and Zyrtec for symptom management. - The patient was advised to take Tylenol or Motrin for pain relief. - A follow-up call will be made with test results to determine if antibiotics should be continued. Orders: Orders Resp Pathogen Panel - [facility] J06.9 - Acute upper respiratory infection, unspecified Medications: New prednisone 40 mg (2 x 20 mg) PO DAILY 10 tabs 0RF 5 days amoxicillin-pot clavulanate 875-125 mg 1 tab PO Q12H 14 tabs 0RF Coding Level of Care Code Est Pt Level 3 (23967) Diagnoses Sinus congestion R09.81
--- OUTSIDE RECORDS SUMMARY | 2025-04-05 16:11 | XMS_ITS | Clinical Summary ---
Author Organization [employer] Address [address] [place] [address] Care Team Providers Care Shop Steward Name Role Phone Unavailable Primary Care Provider [...] topic Meningococcal Vaccine Aged Out No raymundo aiwlda eligible based on patient's age to complete this topic RSV under 20 months Aged Out No longe r eligible based on patient's age to complete this topic Rotavirus Vaccines Aged Out No longer eligible based on patient's age to complete this topic
--- OUTSIDE RECORDS SUMMARY | 2025-04-05 16:11 | XMS_ITS | Encounter Summary ---
Author Organization [facility] Address [address] [place] [address] Care Team Providers Care Shop Estimator Name Role Phone Unavailable Primary Care Provider [...]
== END 2025-04-05 15:21 | disposition home or self-care (01) ==
PROVIDERS: PCP Physician Assistant Medical; Visit Provider Physician Assistant Medical
DX: R09.81 Nasal congestion (principal)

== ENCOUNTER 2025-04-26 07:33 | Outpatient (REF) | payer OTHER, SELFPAY ==
--- OUTSIDE RECORDS SUMMARY | 2025-04-26 07:35 | XMS_ITS | Encounter Summary ---
Author Organization [employer] [facility] Address [address] [place] [address] Care Team Providers Care Ross Furnace Operator Name Role Phone Unavailable Primary Care Provider [...]
--- OUTSIDE RECORDS SUMMARY | 2025-04-26 07:35 | XMS_ITS | Clinical Summary ---
Author Organization [employer] Address [address] [place] [address] Care Team Providers Care Outside Sales Professional Name Role Phone Unavailable Primary Care Provider [...]
[2025-04-26 07:53] LABS: MANUAL DIFF FLAG NO
[2025-04-26 08:28] LABS: Hematocrit 41.5 % (37.0-47.0); Hemoglobin 14.0 g/dl (12.0-16.0); Imm Gran Abs Auto 0.01 X10*3/uL (0.00-0.03); Imm Gran Pct Auto 0.3 % (0.0-0.4); Lymphocytes Absolute Auto 1.7 X10*3/uL (1.2-4.9); Mean Corpuscular HGB Conc 33.7 g/dl (31.0-35.0); Mean Corpuscular Hemoglobin 29.2 pg (27.0-33.0); Mean Corpuscular Volume 86.5 fL (80.0-98.0); NRBC Abs Auto 0.000 X10*3/uL (0.0-0.012); NRBC Pct Auto 0.0 /100WBC (0.0-0.2); Platelet Count 243 X10*3/uL (160-400); Red Blood Count 4.80 X10*6/uL (4.20-5.50); White Blood Count 3.8 X10*3/uL (4.8-10.8)
[2025-04-26 08:51] LABS: Alanine Aminotransferase 23 U/L (0-31); Albumin Level 4.7 g/dL (3.5-5.0); Alkaline Phosphatase 129 U/L (39-117); Aspartate Amino Transferase 26 U/L (5-31); Total Protein 7.4 g/dL (6.5-8.0)
[2025-04-26 09:12] LABS: HBS Num1 100.84 mIU/mL (0-7.99); HBc Num1 5.11 S/CO (0.00-0.79); HBsAGNum1 0.74 S/CO (0.00-0.99); Hepatitis A Antibody IgM 0.44 Index (0-0.79); ~HepC Num1 0.22 S/CO (0.00-0.79); ~Hepatitis A Antibody IgM Nonreactive (Nonreactive); ~Hepatitis B Surface Antibody REACTIVE (Nonreactive); ~Hepatitis C Antibody Nonreactive (Nonreactive)
[2025-04-26 09:13] LABS: Hepatitis B Surface Antigen Negative (Negative)
[2025-04-26 09:20] LABS: Hepatitis A Antibody IgM 0.49 Index (0-0.79); ~Hepatitis A Antibody IgM Nonreactive (Nonreactive)
[2025-04-26 11:31] LABS: HBc Num2 5.07 S/CO; HBc Num3 5.09 S/CO
[2025-04-29 15:18] LABS: Alk.Phos Iso. Macrohepatic 0 % (<=0); Alk.Phos Isoenzymes Bone 42 % (28-66); Alk.Phos Isoenzymes Intest 13 % (1-24); Alk.Phos Isoenzymes Liver 45 % (25-69); Alk.Phos Isoenzymes Placental 0 % (<=0); Alk.Phos Isoenzymes Total 117 U/L (37-153)
== END 2025-04-26 07:34 | disposition home or self-care (01) ==
LOC: HO.LAB 07:33
PROVIDERS: PCP Physician Assistant Medical; Visit Provider Physician Assistant Medical
DX: Z11.59 Encounter for screening for other viral diseases (principal); R74.8 Abnormal levels of other serum enzymes
CPT/HCPCS: 36415; 80076; 84080; 85025; 86704; 86706; 86709; 86803; 87340

== ENCOUNTER 2025-05-09 13:33 | Outpatient (AMB) | payer OTHER, SELFPAY ==
--- NOTE | 2025-05-09 13:40 | MHC.PC.OV ---
Vital Signs 05/09/25 13:42 Height 5 ft 1 in Weight 145 lb 4 oz BMI 27.4 BP 108/82 Blood Pressure Location Lt brachial Position Sitting Respiration 12 Pulse 69 Pulse Source Pulse Oximeter Temp 97.9 F Temp Source Oral Pulse Oximetry (%) 97 Oxygen Delivery Method Room Air Intake Visit Reasons: follow up Intake Note: Follow up Stitch Wheeler Required: No Allergies milk Allergy (Verified 05/09/25 13:40) Gastrointestinal Upset Tobacco use date assessed: 05/09/25 Dental Screening Dental Screen Date: 02/03/25 HPI HPI Comments History of Present Illness Details This is a 58-year-old female with a past medical history of Type II DM, hypertension, hyperlipidemia, tubular adenoma of the colon, asthma, idiopathic constipation and aortic stenosis presenting for follow up. She was seen at urgent care and treated for a possible sinus infection with prednisone and antibiotics. She completed that. Symptoms temporarily improved. She endorses a pain on the right side of the jaw and right side of the head. It is tender to palpation, but it does seem to be getting better. She does not think she clenches her jaw or grinds her teeth. Denies ear pain, congestion, sore throat, fevers or chills. She also notes vertigo symptoms within the past month. This happened a year and a half ago, and she went to the ER and was given medication. Since then she has infrequent recurrent symptoms. She feels like the room is moving or is off balance when she moves her head quickly or puts her head back and closes her eyes. Denies syncope, vomiting, nausea, vision changes, slurred speech, weakness, tingling or numbness. She does not have symptoms today. HTN-Treated with lisinopril 20 mg. Hyperlipidemia is treated with atorvastatin 20 mg. Due for a cholesterol labs. She had a colonoscopy 01/31/25 at [facility]. She had a single tubular adenoma. Aortic stenosis-no dizziness, chest pain, leg swelling or syncope. She had her echocardiogram updated in September which showed mild aortic stenosis. Asthma- followed by pulmonology. Her asthma has been doing well. No interval ER visit or hospitalization. Patient is on Trelegy and albuterol as needed. She declines influenza vaccine and pneumonia vaccine. She was diagnosed with type 2 diabetes in 01/10/2024 with a hemoglobin A1c of 6.7%. She is taking Ozempic 2 mg weekly. She is happy with her weight loss. She denies side effects. No known complications. 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 Mammogram UTD September 2024. We reviewed her recent labs which shows immunity to hepatitis-B, negative testing for hep a and hep C. Alkaline phosphatase level normalized and normal alkaline phosphatase isoenzymes. Bilirubin in significantly elevated at 1.1. White blood cell count decreased at 3800 but no anemia. She was on antibiotics and steroids for possible infection at the time of labs. ROS: Constitutional: No unexplained weight loss, fever, chills, fatigue or night sweats. Eyes: No vision changes, blurry vision, double vision, eye pain, eye redness, eye discharge. ENT: No hearing loss, sneezing, congestion, runny nose or sore throat. Respiratory: No shortness of breath, cough or sputum production. Cardiovascular: No chest pain, chest pressure or chest discomfort. No palpitations or pedal edema. Gastrointestinal: No anorexia, nausea, vomiting or diarrhea. No abdominal pain or blood in stool. Genitourinary: No dysuria, hematuria, urinary frequency. Neurologic: No syncope, unilateral weakness, ataxia, numbness or tingling in the extremities. No seizures or tremors. No memory loss. Musculoskeletal: No joint swelling. Denies back pain. Hematologic/Lymphatics: No bleeding or bruising. No painful lymph nodes. Skin: See HPI. Endocrine: No cold or heat intolerance. No polyuria or polydipsia. Psychiatric: No depression or anxiety. No SI/HI. Physical exam: Constitutional: Alert, in no distress. Head: Normocephalic. Nontender to palpation. Eyes: Pupils are equal, round and reactive to light. Extraocular muscles intact. Ear, Nose and Throat: Canals clear.. TMs normal. Normal nasal mucosa. Sinuses nontender. No nasal discharge. No oral lesions. TMJs nontender, no clicking or crepitus. Neck: Supple, Full range of motion. No lymphadenopathy. No palpable masses. Respiratory: Clear to auscultation. Cardiovascular: S1 S2 regular. 2/6 systolic murmur.. No carotid bruits. Gastrointestinal: Abdomen soft, non-tender, non-distended. Normal bowel sounds. No palpable masses. Neurologic:?Alert and oriented x 3, no focal deficits observed, CN 2-12 intact, [id number] normal, sensation equal and symmetric, strength UE and LE 5/5 bilaterally, reflexes equal and symmetric.? Normal gait.? Patient able to heel walk, toe walk and walk heel-to-toe across the floor.? No pronator drift.? Negative Romberg. Extremities: Warm and well perfused. No clubbing, cyanosis or edema. Intact peripheral pulses bilaterally Psychiatric: Normal mood and affect [facility] Medical History (Updated 05/09/25 @ 14:16 by SYBIL Berry) Decreased white blood cell count Vertigo Head pain Elevated liver enzymes Finger pain, right Encounter for well woman exam with routine gynecological exam Right hand pain Right knee pain Diarrhea Right-sided back pain Acute right flank pain Otitis media Muscle strain Neck pain Back pain Murmur Right otitis media Controlled type 2 diabetes mellitus Dermatitis of ear canal Breast cancer screening by mammogram Screening for cervical cancer Screening for colon cancer Adult general medical examination Bunion Essential hypertension Surgical History History of bunionectomy of both great toes History of esophagogastroduodenoscopy (EGD) Hx of tonsillectomy History of colonoscopy with polypectomy Hx of section Family History Mother Diabetes Brother Diabetes Sister Diabetes Social History Household Members: None Caregiver staying overnight: No Housing: Apartment Are you a primary post anesthesia care unit nurse to a significant other at home: No Do you presently have visiting nurse or other home services: No 75 years or older and lives alone: No Alcohol intake: never Patient Tobacco Use Status: Never used Tobacco e-Cigarette/Vaping Use: Never Used Second Hand Smoke Exposure: No service: No Current occupational status: employed Current occupation: [employer] Current occupational exposures/hazards: No Sexual orientation: Straight/Heterosexual Gender identity: Female Cognitive needs: No Hearing needs: No Vision needs: No Female Reproductive History Menstrual Age of Menarche: 12 Questionnaire Thrive Questionnaire Date Thrive assessed: 06/24/24 I am a: Patient What is your living situation today?: I have a steady place to live Within the past 12 months, did the food you bought not last and you didn't have the money to get more?: I choose not to answer this question Within the past 12 months, did you worry whether your food would run out before you got money to buy more?: I choose not to answer this question Do you have trouble paying for medicines?: No Do you have trouble getting transportation to medical appointments?: No Do you have trouble paying your heating and electricity bill?: No Do you have trouble taking care of your child, family member or friend?: No Do you have trouble with day-to-day activities such as bathing, preparing meals, shopping, managing finances, etc.?: No Are you currently unemployed and looking for a job?: No Are you interested in more education?: No Please select the resources that you would like help with: None Currently or been in a relationship where the following occur: I choose not to answer THRIVE Score: 0 AUDIT C Alcohol Use Questionnaire (AUDIT-C) 1. How often do you have a drink containing alcohol?: Never 3. How often do you have six or more drinks on one occasion?: Never Total Score: 0 GOKUL-7 AMB Questionnaire GOKUL-7 Date GOKUL - 7 assessed: 02/03/25 Source: Developed by Drs. Jaime Stephens, Halle Guevara, Hola Harmon and colleagues, with an educational socorro from [employer]. Physical exam (Primary Care) Vital Signs: Last Vital Signs Temp 97.9 F 05/09/25 13:42 Pulse 69 05/09/25 13:42 Resp 12 05/09/25 13:42 BP 108/82 05/09/25 13:42 Pulse Ox 97 05/09/25 13:42 Oxygen Delivery Method Room Air 05/09/25 13:42 BMI result Body Mass Index 27.4 Tobacco/Smoking Status: Tobacco use Status Tobacco use date assessed 05/09/25 05/09/25 13:44 Patient Tobacco Use Status Never used Tobacco 05/09/25 13:44 e-Cigarette/Vaping Use Never Used 05/09/25 13:44 Thrive Assessment: Date of Thrive Assessment Date Thrive assessed 06/24/24 05/09/25 13:44 Currently or been in a relationship where the following occur: I choose not to answer Coding Level of Care Code Est Pt Level 4 (07195) Complex EM visit Add On G2211 Diagnoses Hypercholesterolemia E78.00 Nonrheumatic aortic valve stenosis I35.0 Cardiac valve disease etiology: nonrheumatic Mild intermittent asthma with acute exacerbation J45.21 Asthma severity: mild Asthma persistence: intermittent Asthma complication type: with acute exacerbation Controlled type 2 diabetes mellitus E11.9 Vertigo R42 Head pain R51.9 Decreased white blood cell count D72.819 Assessment & Plan Assessment & Plan (1) Hypercholesterolemia: Code(s): E78.00 - Pure hypercholesterolemia, unspecified Category: Medical Plan: Continue statin. Recommended Mediterranean diet. (2) Aortic stenosis: Code(s): I35.0 - Nonrheumatic aortic (valve) stenosis Category: Medical Qualifiers: Cardiac valve disease etiology: nonrheumatic Qualified Code(s): I35.0 - Nonrheumatic aortic (valve) stenosis Plan: Surveillance echocardiogram up-to-date and stable with mild aortic stenosis. (3) Asthma: Code(s): J45.909 - Unspecified asthma, uncomplicated Category: Medical Qualifiers: Asthma severity: mild Asthma persistence: intermittent Asthma complication type: with acute exacerbation Qualified Code(s): J45.21 - Mild intermittent asthma with (acute) exacerbation Plan: Followed by pulmonology. Stable. Continue current medications. (4) Controlled type 2 diabetes mellitus: Code(s): E11.9 - Type 2 diabetes mellitus without complications Category: Medical Plan: Recommended annual eye exam, low carb/low sugar diet. Avoid alcohol. Complications reviewed with the patient of type 2 diabetes. Continue Ozempic to 2 mg weekly to promote weight loss. Continue annual eye exam. (5) Vertigo: Code(s): R42 - Dizziness and giddiness Category: Medical Plan: Intermittent vertigo over the past year and a half. Check MRI of the head/brain. Stay well hydrated. Meclizine 25 mg 3 times daily as needed. Cautioned it can cause sedation and drowsiness. Discuss referral to physical therapy. (6) Head pain: Code(s): R51.9 - Headache, unspecified Category: Medical Plan: This may be unrelated to vertigo. Description sounds consistent with TMJ. She does not have symptoms today. Check MRI. Patient requests premedication due to claustrophobia. She will not drive herself. Monitor. Warning signs warranting ER evaluation reviewed. (7) Decreased white blood cell count: Code(s): D72.819 - Decreased white blood cell count, unspecified Category: Medical Plan: Repeat labs in 6 weeks. Plan She was on antibiotics and steroids for a possible infection. Follow up in 3 months for diabetes. Orders: Orders MR head/brain wo con Today R42 - Dizziness and giddiness, R51.9 - Headache, unspecified Comprehensive Met. Panel 6 Weeks E11.9 - Type 2 diabetes mellitus without complications, E78.00 - Pure hypercholesterolemia, unspecified, E78.6 - Lipoprotein deficiency, I10 - Essential (primary) hypertension Vitamin B12 6 Weeks E11.9 - Type 2 diabetes mellitus without complications, E78.00 - Pure hypercholesterolemia, unspecified, E78.6 - Lipoprotein deficiency, I10 - Essential (primary) hypertension, Z91.89 - Other specified personal risk factors, not elsewhere classified IRON PROFILE 6 Weeks D64.9 - Anemia, unspecified, E11.9 - Type 2 diabetes mellitus without complications, E78.00 - Pure hypercholesterolemia, unspecified, E78.6 - Lipoprotein deficiency, I10 - Essential (primary) hypertension Pathologist Review - CBC 6 Weeks E11.9 - Type 2 diabetes mellitus without complications, E78.00 - Pure hypercholesterolemia, unspecified, E78.6 - Lipoprotein deficiency, I10 - Essential (primary) hypertension Lipid Panel 6 Weeks E11.9 - Type 2 diabetes mellitus without complications, E78.00 - Pure hypercholesterolemia, unspecified, E78.5 - Hyperlipidemia, unspecified, E78.6 - Lipoprotein deficiency, I10 - Essential (primary) hypertension Hemoglobin A1c 6 Weeks E11.9 - Type 2 diabetes mellitus without complications, E78.00 - Pure hypercholesterolemia, unspecified, E78.6 - Lipoprotein deficiency, I10 - Essential (primary) hypertension, R73.9 - Hyperglycemia, unspecified Medications: New lorazepam (Ativan) Take 60 minutes before MRI. 1 mg PO ONCE 1 tab 0RF meclizine 25 mg PO TID PRN 90 tabs 0RF dizziness
[2025-05-09 13:42] VITALS: BP 108/82; PULSE 69; RESP 12; TEMP 36.6; O2SAT 97; BMI 27.4
== END 2025-05-09 14:11 | disposition home or self-care (01) ==
LOC: HO.HMCFM 13:34
PROVIDERS: PCP Physician Assistant Medical; Visit Provider Physician Assistant Medical
DX: E78.00 Pure hypercholesterolemia, unspecified (principal); I35.0 Nonrheumatic aortic (valve) stenosis; J45.21 Mild intermittent asthma with (acute) exacerbation; E11.9 Type 2 diabetes mellitus without complications; R42 Dizziness and giddiness; R51.9 Headache, unspecified; D72.819 Decreased white blood cell count, unspecified

== ENCOUNTER → 2025-05-09 13:33 | Outpatient (BNVA) | payer OTHER, SELFPAY | PROVIDERS: PCP Physician Assistant Medical; Visit Provider Physician Assistant Medical | DX: E78.00 Pure hypercholesterolemia, unspecified (principal); I35.0 Nonrheumatic aortic (valve) stenosis; J45.21 Mild intermittent asthma with (acute) exacerbation; E11.9 Type 2 diabetes mellitus without complications; R42 Dizziness and giddiness; R51.9 Headache, unspecified; D72.819 Decreased white blood cell count, unspecified; Z79.85 Long-term (current) use of injectable non-insulin antidiabetic drugs; Z79.899 Other long term (current) drug therapy | CPT/HCPCS: 99212 ==